=== PATIENT | female | born 1975 | race African-American/Black ===

== ENCOUNTER 2019-04-16 14:06 | Outpatient (CLI) | payer BC, SELFPAY ==
[2019-04-16 15:26] LABS: Hemoglobin 11.2 g/dL (12.0-15.0)
== END 2019-04-16 14:07 | disposition home or self-care (01) ==
LOC: ANHSURGERY 14:09
PROVIDERS: Anesthesiology; PCP Internal Medicine Infectious Disease; Visit Provider Obstetrics & Gynecology
DX: D64.9 Anemia, unspecified (principal)
CPT/HCPCS: 36415; 85014; 85018

== ENCOUNTER 2019-04-25 00:22 | Day surgery (SDC) | payer BC, SELFPAY ==
[2019-04-15 12:30] VITALS: BMI 35.9
--- NOTE | 2019-04-25 10:14 | PM.HPGS ---
History of Present Illness History of Present Illness Consent: Risks, benefits, and alternatives have been discussed and questions answered. Patient agrees to proceed with procedure. Chief complaint: Fibroids Narrative: Paul Lugo is a 43 year old female A1 with fibroid uterus and heavy painful cycles. Review of Systems Constitutional: Constitutional: Reports fatigue and Reports lethargy PMFSH Past Medical History Medical History (Updated 04/25/19 @ 10:21 by Morales Gordon MD) Fibroids Menorrhagia with regular cycle Migraine Surgical History Surgical History H/O: Family History Family History Other Diabetes mellitus Hypertension Social History Social History Substance use: never Meds Home Medications and Allergies Home Medications Medication Instructions Recorded Confirmed Type ferrous sulfate [iron] 325 mg PO BID 04/15/19 04/15/19 History ibuprofen 800 mg PO Q8H PRN 04/15/19 04/15/19 History Allergies Allergy/AdvReac Type Severity Reaction Status Date / Time Sulfa (Sulfonamide Allergy Intermediate Rash Verified 04/25/19 10:08 Antibiotics) Exam Const: General: no acute distress GI: GI Palp: Yes Soft to palpation : External Female Exam: normal external appearance Speculum Exam - Vagina: vaginal bleeding Assessment and Plan Assessment and plan (1) Fibroids: Code(s): D21.9 - Benign neoplasm of connective and other soft tissue, unspecified Status: Acute Assessment and Plan: schedule for a hysteroscopy with dilation and curettage with possible myosure. (2) Menorrhagia with regular cycle: Code(s): N92.0 - Excessive and frequent menstruation with regular cycle Status: Acute
[2019-04-25 10:30] VITALS: BP 133/84; PULSE 81; RESP 18; TEMP 36.4; O2SAT 100
[2019-04-25] MEDS: LACTATED RINGERS 1,000 ML 30 ML IV CONT (10:35)
--- NOTE | 2019-04-25 11:16 | WPDANESEPPF ---
Anes - Initial Pre Proc Eval Procedure: Operation Date: 04/25/19 12:00 Proposed Procedures p Hysteroscopy, Dilation and Curettage - Morales Gordon MD Date/Time: 04/25/19 11:16 Surgeon: Morales Gordon MD Pre Op Diagnosis: Fibroids Patient Data Age: 43 Gender: F Height: 5 ft 6 in Weight: 102.1 kg Last Vital Signs Temp 36.4 C L 04/25/19 10:30 Pulse 81 04/25/19 10:30 Resp 18 04/25/19 10:30 BP 133/84 04/25/19 10:30 Pulse Ox 100 04/25/19 10:30 Allergies Allergy/AdvReac Type Severity Reaction Status Date / Time Sulfa (Sulfonamide Allergy Intermediate Rash Verified 04/25/19 10:08 Antibiotics) Home Medications Medication Instructions Recorded Confirmed Type ferrous sulfate [iron] 325 mg PO BID 04/15/19 04/15/19 History ibuprofen 800 mg PO Q8H PRN 04/15/19 04/15/19 History Patient hx anesthesia problems: none Family hx anesthesia problems: none PMFSH Past Medical History Medical History Fibroids Menorrhagia with regular cycle Migraine Surgical History Surgical History H/O: Family History Family History Other Diabetes mellitus Hypertension Social History Social History Substance use: never Anes - Eval Final PreProcedure Day of Procedure 04/25/19 11:16 Patient weight: obese Heart: regular rate and rhythm Lungs: clear to auscultation Airway: Mallampati scale class II Neurological: alert and oriented Last oral intake: >/= 8 hours ASA classification: II Emergent: no Anesthetic plan: proceed Anesthesia type and monitoring: general GIVS and standard monitoring Informed Consent: The patient's anesthetic plan and its attendant risks and benefits were discussed with the patient/family/POA. Questions were solicited and answers provided to the satisfaction of the patient/family/POA.
--- NOTE | 2019-04-25 12:27 | PM.OP ---
Procedure Note - Brief Procedure Note - Brief Date of procedure: 04/25/19 Pre-op diagnosis: Fibroids Post-op diagnosis: same Procedure performed: hysteroscopy dilation and curettage Anesthesia: MAC and local Surgeon: Morales Gordon MD Estimated blood loss (mL): 10 Drains: No Packing: No Pathology: yes Findings: large uterine cavity.
[2019-04-25 12:33] VITALS: BP 117/72; PULSE 82; RESP 18
[2019-04-25 12:58] VITALS: BP 123/87; PULSE 69; O2SAT 98
[2019-04-25 13:20] VITALS: BP 123/87; PULSE 69; O2SAT 98
--- NOTE | 2019-04-25 13:54 | OP_ITS ---
DATE OF PROCEDURE: 04/25/2019 PREOPERATIVE DIAGNOSIS: Fibroids. POSTOPERATIVE DIAGNOSIS: Fibroids. PROCEDURE: Hysteroscopy with dilation and curettage. ANESTHESIA: MAC with paracervical block. FINDINGS: Normal large uterine cavity. DESCRIPTION OF PROCEDURE: The patient was taken to the operating room with IV running, prepared and draped in a normal sterile fashion and placed in a dorsal lithotomy position. A bivalve speculum was placed in vagina. Anterior lip of the cervix was grasped with a single-tooth tenaculum. Cervix was injected with 5 cc of lidocaine in 2 and 10 o'clock position on the cervix. The uterus was sounded to 10 cm. The cervix was then serially dilated with Hegar dilators. Hysteroscope was introduced. Normal uterine cavity. No visible fibroids or polyps noted. Hysteroscope removed. Sharp curettage performed in all 4 quadrants with scant bloody tissue. Instruments were removed. Hemostasis was assured. The patient was taken to recovery room in stable condition. Adrienne I MT: Carter
== END 2019-04-25 13:49 | disposition home or self-care (01) ==
PROVIDERS: PCP Internal Medicine Infectious Disease; Visit Provider Obstetrics & Gynecology
PROC: 0U5B8ZZ Destruction of Endometrium, Via Natural or Artificial Opening Endoscopic (ICD-10-PCS; CPT 58563; principal; 2019-04-25 12:00)
DX: D25.0 Submucous leiomyoma of uterus (principal); N92.0 Excessive and frequent menstruation with regular cycle; E66.9 Obesity, unspecified; Z68.36 Body mass index [BMI] 36.0-36.9, adult
CPT/HCPCS: 58558; 88305; A9270; J2250; J2405; J2704; J3010; J7030; J7120

== ENCOUNTER 2019-06-13 18:19 | Emergency (ER) | payer BC, SELFPAY ==
[2019-06-13 18:32] VITALS: BP 145/93; PULSE 107; RESP 16; TEMP 37.8; O2SAT 100
--- NOTE | 2019-06-13 18:49 | ED.SKABFB ---
HPI - Skin/Abscess/Foreign Bdy General Chief complaint: Skin/Abscess/Foreign Body Stated complaint: Left leg wound Time Seen by Provider: 06/13/19 18:49 Source: patient and RN notes reviewed History of Present Illness HPI narrative: Patient is a 43-year-old female that presents the urgent care with complaints of left lower leg swelling and redness. Patient states she noticed it a couple days ago and feels that it may have been a bug bite . Patient states that the redness is gotten larger. Patient also reports of a mild nonproductive cough since Sunday. Patient states she has started taking her Singulair that she was prescribed in the past for seasonal allergies. 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 Patient denies of any known fever however is aware that she is currently running a low-grade fever. Patient denies of any acute shortness of breath or chest pain. Patient denies any history of hypertension. Denies any history of DVT. Patient states she has had swelling in her legs in the past and was ruled out for a DVT before. No other acute complaints. No acute distress noted. Patient read the plan of care. Related Data Home Medications Medication Instructions Recorded Confirmed amitriptyline 25 mg PO DAILY 06/13/19 06/13/19 ferrous sulfate 324 mg PO DAILY 06/13/19 06/13/19 fexofenadine [Melody Allergy] 180 mg PO DAILY 06/13/19 06/13/19 gabapentin [Neurontin] 300 mg PO TID 06/13/19 06/13/19 montelukast [Singulair] 10 mg PO HS 06/13/19 06/13/19 Allergies Allergy/AdvReac Type Severity Reaction Status Date / Time Sulfa (Sulfonamide Allergy Intermediate Rash Verified 06/13/19 18:38 Antibiotics) Review of Systems Review of Systems: Narrative: CONSTITUTIONAL: Denies fever, chills, or sweats. EYES: Denies visual changes, redness, or discharge. ENT: Denies rhinorrhea, congestion, sore throat, or otalgia. CARDIOVASCULAR: Denies chest pain, palpitations, or edema. RESPIRATORY: Denies cough or dyspnea. GASTROINTESTINAL: Denies abdominal pain, nausea, vomiting, or diarrhea. GENITOURINARY: Denies dysuria or hematuria. SKIN: Reports of redness to the left lower leg MUSCULOSKELETAL: Reports of swelling to the left lower leg NEUROLOGIC: Denies headache, numbness, or weakness. All other systems reviewed are negative, except as documented in HPI. [facility] Social History Social History Substance use: never Gender identity (if verbalized by the patient): Female Comments At the time of my signature, I reviewed and agree with the nursing past medical, surgical, social, and family history. There is no relevant family history pertinent to the patient complaint. Exam Narrative: Exam Narrative: GENERAL: This is a well-nourished, well-developed patient, in no apparent distress. HEAD: normocephalic, atraumatic. EYES: PERRL. Sclera clear/white. Vision is grossly intact. EARS: External ears normal NOSE: External nose normal with no obvious nasal discharge THROAT: Mucous membranes moist, posterior pharynx clear. NECK: Neck supple CARDIOVASCULAR: Regular rate and rhythm without murmurs, gallops, or rubs. RESPIRATORY: Clear to auscultation. Breath sounds equal bilaterally. No wheezes, rales, or rhonchi. SKIN: 8 cm diameter area of erythema and mild edema to the anterior medial aspect of the left lower leg, 3 cm diameter area of erythema to lateral aspect of left lower leg NEURO: awake, alert, and oriented to person, place and time. There were no obvious focal neurologic abnormalities. EXTREMITIES: Nonpitting mild edema to the left lower extremity with positive strong pedal pulse and capillary refill less than 2 seconds. Course Vital Signs Vital signs: Vital Signs Temperature 100.1 F H 06/13/19 18:32 Pulse Rate 107 H 06/13/19
== END 2019-06-13 19:10 | disposition home or self-care (01) ==
PROVIDERS: Emergency Provider Nurse Practitioner Family; PCP Internal Medicine Infectious Disease
DX: L03.116 Cellulitis of left lower limb (principal)
CPT/HCPCS: 99213; G0463

== ENCOUNTER 2019-08-05 09:49 | Outpatient (CLI) | payer BC, SELFPAY ==
--- NOTE | 2019-08-05 11:00 | NEURO_ITS ---
Patient Number: [id number] Impression: # Complains of numbness of lower extremities. # Normal motor and sensory nerve conduction study. # Normal needle/EMG exam. # Clinical correlation recommended. Higher involvement may need to be ruled out. Nerve Conduction Studies Anti Sensory Summary Table Stim Site NR Peak (ms) P-T Amp (?V) Site1 Site2 Delta-P (ms) Dist (cm) Antonio (m/s) Left Sup Fibular Anti Sensory (Ant Lat Mall) 14 cm 3.5 13.5 14 cm Ant Lat Mall 3.5 16.0 46 Right Sup Fibular Anti Sensory (Ant Lat Mall) 14 cm 3.8 2.4 14 cm Ant Lat Mall 3.8 16.0 42 Left Sural Anti Sensory (Lat Mall) Calf 3.7 11.2 Calf Lat Mall 3.7 16.0 43 Right Sural Anti Sensory (Lat Mall) Calf 3.3 6.4 Calf Lat Mall 3.3 16.0 48 Motor Summary Table Stim Site NR Onset (ms) O-P Amp (mV) Site1 Site2 Delta-0 (ms) Dist (cm) Antonio (m/s) Left Peroneal Motor (Vastus Med) Ankle 4.1 2.8 Popit Ankle 7.6 39.0 51 Popit 11.7 1.9 Right Peroneal Motor (Vastus Med) Ankle 3.9 0.8 Popit Ankle 7.0 41.0 59 Popit 10.9 0.6 Left Tibial Motor (Abd Mustafa Brev) Ankle 4.7 5.4 Knee Ankle 7.5 42.0 56 Knee 12.2 4.5 Right Tibial Motor (Abd Mustafa Brev) Ankle 4.5 6.4 Knee Ankle 7.6 43.0 57 Knee 12.1 4.0 F Wave Studies NR F-Lat (ms) L-R F-Lat (ms) Left Peroneal (Mrkrs) (EDB) 48.28 0.26 Right Peroneal (Mrkrs) (EDB) 48.54 0.26 Left Tibial (Mrkrs) (Abd Hallucis) 49.66 0.18 Right Tibial (Mrkrs) (Abd Hallucis) 49.47 0.18 EMG Side Muscle Nerve Root Ins Act Fibs Amp Dur Recrt Comment Right AntTibialis Dp Br Fibular L4-5 Nml Nml Nml Nml Nml Right Gastroc Tibial S1-2 Nml Nml Nml Nml Nml Right Fibularis Long Sup Br Fibular L5-S1 Nml Nml Nml Nml Nml Right Flex Dig Long Tibial L5-S2 Nml Nml Nml Nml Nml Right Ext Dig Brev Dp Br Fibular L5, S1 Nml Nml Nml Nml Nml Left AntTibialis Dp Br Fibular L4-5 Nml Nml Nml Nml Nml Left Gastroc Tibial S1-2 Nml Nml Nml Nml Nml Left Fibularis Long Sup Br Fibular L5-S1 Nml Nml Nml Nml Nml Left Flex Dig Long Tibial L5-S2 Nml Nml Nml Nml Nml Left Ext Dig Brev Dp Br Fibular L5, S1 Nml Nml Nml Nml Nml MTDD
== END 2019-08-05 09:50 | disposition home or self-care (01) ==
LOC: ANHNEURO 09:51
PROVIDERS: PCP Internal Medicine Infectious Disease; Visit Provider Internal Medicine Infectious Disease
DX: G60.9 Hereditary and idiopathic neuropathy, unspecified (principal)
CPT/HCPCS: 95886; 95910

== ENCOUNTER 2019-10-21 17:42 | Emergency (ER) | payer BC, SELFPAY ==
[2019-10-21 17:54] VITALS: BP 142/83; PULSE 91; RESP 16; TEMP 37.3; O2SAT 100
--- NOTE | 2019-10-21 18:01 | ED.GENADULT ---
HPI - General Adult General Chief complaint: Wound/Laceration Stated complaint: Rash on leg Time Seen by Provider: 10/21/19 18:09 Source: patient Mode of arrival: ambulatory Limitations: no limitations History of Present Illness HPI narrative: 44-year-old female patient presents to the the medical center with complaints of a rash to the left leg for the past 3 to 4 days. Patient states that she thinks she got bit by something. Patient states that it is itchy and states that the redness around the site was much worse a couple of days ago and does appear to be improving but continues to have itching to the area. Denies any swelling to the leg. Denies any fevers, nausea, vomiting or diarrhea. Denies any body aches or chills. Denies any chest pain or shortness of breath. Patient states she did put a little bit of Neosporin on it but denies doing anything else for the area. Related Data Home Medications Medication Instructions Recorded Confirmed amitriptyline 25 mg PO DAILY 06/13/19 10/21/19 ferrous sulfate 324 mg PO DAILY 06/13/19 10/21/19 fexofenadine [Melody Allergy] 180 mg PO DAILY 06/13/19 10/21/19 gabapentin [Neurontin] 300 mg PO TID 06/13/19 10/21/19 montelukast [Singulair] 10 mg PO HS 06/13/19 10/21/19 Allergies Allergy/AdvReac Type Severity Reaction Status Date / Time Sulfa (Sulfonamide Allergy Intermediate Rash Verified 10/21/19 17:50 Antibiotics) Review of Systems Review of Systems: Narrative: CONSTITUTIONAL: Denies fever, chills, or sweats. EYES: Denies visual changes, redness, or discharge. ENT: Denies rhinorrhea, congestion, sore throat, or otalgia. CARDIOVASCULAR: Denies chest pain, palpitations, or edema. RESPIRATORY: Denies cough or dyspnea. GASTROINTESTINAL: Denies abdominal pain, nausea, vomiting, or diarrhea. GENITOURINARY: Denies dysuria or hematuria. SKIN: Denies rash or itching. Positive bite with itchiness to the left leg x3 days MUSCULOSKELETAL: Denies back pain, joint pain, or myalgia. NEUROLOGIC: Denies headache, numbness, or weakness. PSYCHIATRIC: Denies anxiety or depression. [facility] Past Medical History Medical History Fibroids Menorrhagia with regular cycle Migraine Surgical History Surgical History H/O: Family History Family History Other Diabetes mellitus Hypertension Social History Social History Substance use: never Gender identity (if verbalized by the patient): Female Comments At the time of my signature I agree with nursing past medical history, surgical, social, and family history. There is no relevant family history pertinent to the presenting complaint. Exam Narrative: Exam Narrative: GENERAL: Well-appearing, well-nourished, and in no acute distress. HEAD: Normocephalic, atraumatic. EYES: PERRLA and EOMI. ENT: Nares clear, no rhinorrhea or epistaxis. Mucous membranes moist. NECK: Supple. No lymphadenopathy CHEST: Clear to auscultation. No respiratory distress. HEART: Regular rate and rhythm. No murmur heard. Normal peripheral pulses. ABDOMEN: Soft, nontender, nondistended, normal active bowel sounds. EXTREMITIES: Normal range of motion. No edema. SKIN: Warm, dry, patient does have what appears to be a punctate gonzalo to the center of a very light reddened/hyperpigmented area to the anterior left leg on the medial aspect. The area measures approximately 3.5 x 4 and is irregular. There is no open wounds or discharge to the area. There is very slight tenderness on palpation to the area of the patient rates about 3 out of 10. The area was compared to the picture that was on her phone of the redness that she had 2 days ago and is much improved compared to the picture. NEURO: No focal deficits. Alert and oriented x3. Course Vital Signs Vi
== END 2019-10-21 18:10 | disposition home or self-care (01) ==
PROVIDERS: Emergency Provider Nurse Practitioner Family; PCP Internal Medicine Infectious Disease
DX: S80.862A Insect bite (nonvenomous), left lower leg, initial encounter (principal); W57.XXXA Bitten or stung by nonvenomous insect and other nonvenomous arthropods, initial encounter
CPT/HCPCS: 99213; G0463

== ENCOUNTER 2019-12-21 13:01 | Emergency (ER) | payer BC, SELFPAY ==
[2019-12-21 13:33] VITALS: BP 157/93; PULSE 83; RESP 16; TEMP 36.3; O2SAT 100
--- NOTE | 2019-12-21 13:54 | ED.GENADULT ---
HPI - General Adult General Chief complaint: Skin/Abscess/Foreign Body Stated complaint: Rash Time Seen by Provider: 12/21/19 13:54 Source: patient Mode of arrival: ambulatory Limitations: no limitations History of Present Illness HPI narrative: 44-year-old female patient presents to the [facility] with complaints of a rash to the abdomen and chest for the past 3 to 4 days. Patient states it is very itchy. Patient states she was outside recently at her sister's house. Denies any pets. Denies any new lotions soaps or detergent. Denies any chest pain, shortness of breath, fevers, swelling to lips tongue or face. Patient states she has been using some antibiotic ointment to the rash as well as taking some Benadryl to help with the itching. Related Data Home Medications Medication Instructions Recorded Confirmed amitriptyline 25 mg PO DAILY 06/13/19 10/21/19 ferrous sulfate 324 mg PO DAILY 06/13/19 10/21/19 gabapentin [Neurontin] 300 mg PO TID 06/13/19 10/21/19 Allergies Allergy/AdvReac Type Severity Reaction Status Date / Time Sulfa (Sulfonamide Allergy Intermediate Rash Verified 10/21/19 17:50 Antibiotics) Review of Systems Review of Systems: Narrative: CONSTITUTIONAL: Denies fever, chills, or sweats. EYES: Denies visual changes, redness, or discharge. ENT: Denies rhinorrhea, congestion, sore throat, or otalgia. CARDIOVASCULAR: Denies chest pain, palpitations, or edema. RESPIRATORY: Denies cough or dyspnea. GASTROINTESTINAL: Denies abdominal pain, nausea, vomiting, or diarrhea. GENITOURINARY: Denies dysuria or hematuria. SKIN: Positive rash with itching to abdomen and chest x3 to 4 days MUSCULOSKELETAL: Denies back pain, joint pain, or myalgia. NEUROLOGIC: Denies headache, numbness, or weakness. PSYCHIATRIC: Denies anxiety or depression. [facility] Past Medical History Medical History (Updated 12/21/19 @ 14:01 by SHAYNE Sanchez) Fibroids Menorrhagia with regular cycle Migraine Surgical History Surgical History H/O: Family History Family History Other Diabetes mellitus Hypertension Social History Social History Substance use: never Gender identity (if verbalized by the patient): Female Comments At the time of my signature I agree with nursing past medical history, surgical, social, and family history. There is no relevant family history pertinent to the presenting complaint. Exam Narrative: Exam Narrative: GENERAL: Well-appearing, well-nourished, and in no acute distress. HEAD: Normocephalic, atraumatic. EYES: PERRLA and EOMI. ENT: Nares clear, no rhinorrhea or epistaxis. Mucous membranes moist. NECK: Supple. No lymphadenopathy CHEST: Clear to auscultation. No respiratory distress. HEART: Regular rate and rhythm. No murmur heard. Normal peripheral pulses. ABDOMEN: Soft, nontender, nondistended, normal active bowel sounds. EXTREMITIES: Normal range of motion. No edema. SKIN: Warm, dry, patient has small erythemic macules with some scabbing noted to the middle in various areas around the abdomen. Patient states that it does itch. Also various areas that are similar to the chest. Nothing noted to the back, arms or lower extremities. No open wounds or discharge noted NEURO: No focal deficits. Alert and oriented x3. Course Vital Signs Vital signs: Vital Signs Temperature 36.3 C L 12/21/19 13:33 Pulse Rate 83 12/21/19 13:33 Respiratory Rate 16 12/21/19 13:33 Blood Pressure 157/93 H 12/21/19 13:33 Pulse Oximetry 100 12/21/19 13:33 Temperature 36.3 C L 12/21/19 13:33 Pulse Rate 83 12/21/19 13:33 Respiratory Rate 16 12/21/19 13:33 Blood Pressure 157/93 H 12/21/19 13:33 Pulse Oximetry 100 12/21/19 13:33 Vital signs reviewed. The patient has been informed that they may have pre-
== END 2019-12-21 14:04 | disposition home or self-care (01) ==
PROVIDERS: Emergency Provider Nurse Practitioner Family; PCP Internal Medicine Infectious Disease
DX: R21 Rash and other nonspecific skin eruption (principal)
CPT/HCPCS: 99213; G0463

== ENCOUNTER 2020-02-19 09:22 | Emergency (ER) | payer BC, SELFPAY ==
--- NOTE | ~2020-02-19 | XR_ITS ---
XR chest 2V 02/19/2020 09:49 Indication: Nonproductive cough Procedure: 2 view chest Comparison: 09/29/2018 Findings: Left perihilar atelectasis. Right lung is clear. No pleural effusion or pneumothorax. No ac [place] osseous abnormality. Impression: 1: Left perihilar atelectasis. Reviewed, dictated and finalized at location A. COVER OPERATOR Impression: 1: Left perihilar atelectasis.
--- NOTE | 2020-02-19 09:30 | ED.GENADULT ---
HPI - General Adult General Chief complaint: Upper Respiratory Infection Stated complaint: Cough Time Seen by Provider: 02/19/20 09:30 Source: patient Mode of arrival: ambulatory Limitations: no limitations History of Present Illness HPI narrative: 44-year-old female patient presents to the [facility] with complaints of a cough for the past 5 days. Patient states she did get Covid tested but only after having symptoms for 1 day. Patient states she has continued to have a dry cough and a little bit of shortness of breath. Patient states she has a little bit of midsternal chest pain that only occurs when she is coughing. Patient denies any fevers that she is aware of. Denies any ear pain, runny nose or stuffy nose. Patient states she does have a little bit of a sore throat in the morning but it does get better as the day progresses. Denies any abdominal pain, nausea, vomiting or diarrhea. Patient states she has tried some [id number] medication to help with the cough. Related Data Home Medications Medication Instructions Recorded Confirmed amitriptyline 25 mg PO DAILY 06/13/19 02/19/20 ferrous sulfate 324 mg PO DAILY 06/13/19 02/19/20 gabapentin [Neurontin] 300 mg PO TID 06/13/19 02/19/20 Allergies Allergy/AdvReac Type Severity Reaction Status Date / Time Sulfa (Sulfonamide Allergy Intermediate Rash Verified 02/19/20 09:36 Antibiotics) Review of Systems Review of Systems: Narrative: CONSTITUTIONAL: Denies fever, chills, or sweats. EYES: Denies visual changes, redness, or discharge. ENT: Denies rhinorrhea, congestion, positive intermittent sore throat, denies otalgia. CARDIOVASCULAR: Denies chest pain, palpitations, or edema. RESPIRATORY: Positive cough with intermittent dyspnea. GASTROINTESTINAL: Denies abdominal pain, nausea, vomiting, or diarrhea. GENITOURINARY: Denies dysuria or hematuria. SKIN: Denies rash or itching. MUSCULOSKELETAL: Denies back pain, joint pain, or myalgia. NEUROLOGIC: Denies headache, numbness, or weakness. PSYCHIATRIC: Denies anxiety or depression. [facility] Past Medical History Medical History (Updated 02/19/20 @ 09:59 by SHAYNE Sanchez) Anemia Fibroids Menorrhagia with regular cycle Migraine Surgical History Surgical History H/O: Family History Family History Other Diabetes mellitus Hypertension Social History Social History Substance use: never Gender identity (if verbalized by the patient): Female Comments At the time of my signature I agree with nursing past medical history, surgical, social, and family history. There is no relevant family history pertinent to the presenting complaint. Exam Narrative: Exam Narrative: GENERAL: Well-appearing, well-nourished, and in no acute distress. HEAD: Normocephalic, atraumatic. EYES: PERRLA and EOMI. ENT: Nares with erythema and edema noted bilaterally, patent, no rhinorrhea or epistaxis. Mucous membranes moist. Posterior pharynx with no erythema, tonsil management, exudates or lesions present. Bilateral TMs are clear, there is ear wax noted in to bilateral canals NECK: Supple. No lymphadenopathy CHEST: Clear to auscultation. No respiratory distress. Patient will talk in clear complete sentences. HEART: Regular rate and rhythm. No murmur heard. Normal peripheral pulses. ABDOMEN: Soft, nontender, nondistended, normal active bowel sounds. EXTREMITIES: Normal range of motion. No edema. SKIN: Warm, dry, no rash. NEURO: No focal deficits. Alert and oriented x3. Course Reevaluation(s) Reevaluation #1: Reevaluated patient after her x-ray had resulted. X-ray does show a little bit of atelectasis to the left lung. Discussed with her that we will discharge her home with an inhaler, oral steroid and Tessalon Perles to help with the coughing and t
[2020-02-19 09:31] VITALS: BP 140/85; PULSE 101; RESP 16; TEMP 37.3; O2SAT 99
== END 2020-02-19 10:10 | disposition home or self-care (01) ==
PROVIDERS: Emergency Provider Nurse Practitioner Family; PCP Internal Medicine Infectious Disease
DX: R05 Cough (principal); J98.11 Atelectasis; Z20.828 Contact with and (suspected) exposure to other viral communicable diseases; D64.9 Anemia, unspecified
CPT/HCPCS: 71046; 87635; 99213; C9803; G0463; U0003

== ENCOUNTER 2020-02-19 11:18 | Outpatient (NON) | payer BC, SELFPAY ==
[2020-02-20 20:00] LABS: SARS-CoV-2 RNA PCR Negative
== END 2020-02-19 11:19 ==
PROVIDERS: PCP Internal Medicine Infectious Disease; Visit Provider Nurse Practitioner Family
DX: Z20.828 Contact with and (suspected) exposure to other viral communicable diseases (principal); R05 Cough; J98.11 Atelectasis
CPT/HCPCS: 87635; C9803; U0003

== ENCOUNTER 2021-12-10 09:36 | Emergency (ER) | payer OTHER, BC, SELFPAY ==
[2021-12-10 09:47] VITALS: BP 129/83; PULSE 91; RESP 16; TEMP 37.2; O2SAT 99
--- NOTE | 2021-12-10 10:19 | ED.EAR ---
HPI - Ear Problem General Chief complaint: Ear Stated complaint: ear infection Time Seen by Provider: 12/10/21 10:19 Source: patient Mode of arrival: ambulatory Limitations: no limitations History of Present Illness HPI Narrative: 46 y/o female presented for c/o both ears clogged for 2 weeks. She has used ear wax remover without relief. Endorses Left ear pain worse than right, rates 7/10. States she was treated for ear infection 2 months ago. Denies headache, tinnitus, dizziness, nausea, vomiting, fever or chills. MD Complaint: ear pain Related Data Home Medications Medication Instructions Recorded Confirmed amitriptyline 25 mg tablet 25 mg PO DAILY 06/13/19 02/19/20 ferrous sulfate 324 mg (65 mg 324 mg PO DAILY 06/13/19 02/19/20 iron) tablet,delayed release Stool Softner 12/10/21 furosemide 20 mg tablet mg 12/10/21 Allergies Allergy/AdvReac Type Severity Reaction Status Date / Time Sulfa (Sulfonamide Allergy Intermediate Rash Verified 12/10/21 10:09 Antibiotics) Review of Systems Review of Systems: CONSTITUTIONAL: Denies malaise, chills, or fever. EYES: Denies visual changes, redness, or discharge. ENT: Denies rhinorrhea, congestion, sinus pain, and sore throat. Reports ear pain CARDIOVASCULAR: Denies chest pain, palpitations, or edema. RESPIRATORY: Denies cough or dyspnea. GASTROINTESTINAL: Denies abdominal pain, nausea, vomiting, diarrhea SKIN: Denies rash or itching. MUSCULOSKELETAL: Denies myalgia. NEUROLOGIC: Denies headache. All systems reviewed & are unremarkable except as noted in HPI and below PMFSH Past Medical History Medical History Anemia Fibroids Menorrhagia with regular cycle Migraine Surgical History Surgical History H/O: Family History Family History Other Diabetes mellitus Hypertension Social History Social History Substance use: never Gender identity (if verbalized by the patient): Female Comments At time of signature, agree with nursing past medical, surgical, social and family history. There is no relevant family history pertinent to the presenting complaint Exam Narrative: GENERAL: Well-appearing EYES: PERRLA, conjunctivae clear ENT: Nares clear. Mucous membranes moist. Bilateral canals with excess cerumen, no impaction; TMs pearly arriaga with dull light reflex bilaterally; no tragal tenderness. Oropharynx not erythematous without lesions. NECK: Supple. No lymphadenopathy CHEST: Clear to auscultation, breath sounds equal. HEART: Regular rate and rhythm. No murmur heard. SKIN: Warm, dry, no rash. NEURO: Alert and oriented x3. Course Course Emergency Course: Patient is aware of diagnosis, understands and agrees to treatment plan. Anticipatory guidance given. Patient agrees to follow-up as directed and is aware of reasons to seek care at the emergency department. Portions of this record may have been created with voice recognition software Level of Care: Express Care Visit Vital Signs Vital signs: Vital Signs Temperature 99.0 F 12/10/21 09:47 Pulse Rate 91 12/10/21 09:47 Respiratory Rate 16 12/10/21 09:47 Blood Pressure 129/83 12/10/21 09:47 Pulse Oximetry 99 12/10/21 09:47 Oxygen Delivery Room Air 12/10/21 09:47 Temperature 99.0 F 12/10/21 09:47 Pulse Rate 91 12/10/21 09:47 Respiratory Rate 16 12/10/21 09:47 Blood Pressure 129/83 12/10/21 09:47 Pulse Oximetry 99 12/10/21 09:47 Oxygen Delivery Room Air 12/10/21 09:47 Reviewed Procedures Ear Wax Removal Both Ears: TM Examination: TM(s) intact, normal appearance Ear Canal Exam: atraumatic Patient Tolerated Procedure: well and no complications Technique: ear canal curetted Additio
== END 2021-12-10 10:50 | disposition home or self-care (01) ==
PROVIDERS: Emergency Provider Nurse Practitioner Family; PCP Family Medicine
DX: H61.23 Impacted cerumen, bilateral (principal)
CPT/HCPCS: 69210; 99212; G0463

== ENCOUNTER 2022-06-21 13:50 | Emergency (ER) | payer OTHER, SELFPAY ==
[2022-06-21 13:59] VITALS: BP 144/96; PULSE 75; RESP 12; TEMP 36.6; O2SAT 98
--- NOTE | 2022-06-21 14:11 | ED.GENADULT ---
HPI - General Adult General Chief complaint: Skin/Abscess/Foreign Body Stated complaint: lump back of left ear Time Seen by Provider: 06/21/22 14:10 Source: patient Mode of arrival: ambulatory Limitations: no limitations History of Present Illness HPI narrative: 46 y/o female presented for c/o 'lump' behind left ear. First noticed yesterday. States she thought she was stung by an insect. She applied neosporin to the site, and states it was smaller this morning. 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 Denies inner ear pain, drainage, tinnitus, outer ear swelling or redness. Related Data Home Medications Medication Instructions Recorded Confirmed Iron (ferrous sulfate) 325 mg PO DAILY 06/21/22 06/21/22 docusate sodium 100 mg capsule 100 mg PO DAILY 06/21/22 06/21/22 (Colace) furosemide 20 mg tablet 20 mg PO DIRECTED PRN Edema 06/21/22 06/21/22 Allergies Allergy/AdvReac Type Severity Reaction Status Date / Time Sulfa (Sulfonamide Allergy Intermediate Rash Verified 06/21/22 13:55 Antibiotics) Review of Systems Review of Systems: CONSTITUTIONAL: Denies body aches, fever, chills, or sweats. EYES: Denies visual changes, redness, or discharge. ENT: Denies rhinorrhea, congestion CARDIOVASCULAR: Denies chest pain, palpitations, or edema. RESPIRATORY: Denies cough or dyspnea. GASTROINTESTINAL: Denies abdominal pain, nausea, vomiting, or diarrhea. SKIN: per HPI MUSCULOSKELETAL: Denies back pain, joint pain, or myalgia. NEUROLOGIC: Denies headache, numbness, tingling, or weakness. PMFSH Past Medical History Medical History Anemia Fibroids Menorrhagia with regular cycle Migraine Surgical History Surgical History H/O: Family History Family History Other Diabetes mellitus Hypertension Social History Social History Substance use: never Gender identity (if verbalized by the patient): Female Comments At time of signature, I have reviewed and agree with nursing past medical, surgical, social and family history unless otherwise noted. Please see nursing chart for further information. There is no relevant family history pertinent to the presenting complaint Exam Narrative: GENERAL: Well-appearing HEAD: Normocephalic, atraumatic. EYES: conjunctivae clear, and EOMI. ENT: Mucous membranes moist. Oropharynx without edema, erythema or lesions. TMs with normal light reflex bilaterally. Outer ear normal bilaterally. NECK: Supple. No lymphadenopathy CHEST: Clear to auscultation. HEART: Regular rate and rhythm. SKIN: Warm, dry. Left posterior ear superior to mastoid with approx 3mm diameter mildly erythematous and slightly raised papular lesion. No fluctuance or active drainage. Mildly tender with palpation. NEURO: Alert and oriented x3. Course Course Emergency Course: Patient is aware of diagnosis, understands and agrees to treatment plan. Anticipatory guidance given. Patient agrees to follow-up as directed and is aware of reasons to seek care at the emergency department. Portions of this record may have been created with voice recognition software Level of Care: Express Care Visit Vital Signs Vital signs: Vital Signs Temperature 98 F 06/21/22 13:59 Pulse Rate 75 06/21/22 13:59 Respiratory Rate 12 06/21/22 13:59 Blood Pressure 144/96 H 06/21/22 13:59 Pulse Oximetry 98 06/21/22 13:59 Oxygen Delivery Room Air 06/21/22 13:59 Temperature 98 F 06/21/22 13:59 Pulse Rate 75 06/21/22 13:59 Respiratory Rate 12 06/21/22 13:59 Blood Pressure 144/96 H 06/21/22 13:59 Pulse Oximetry 98 06/21/22 13:59 Oxygen Delivery Room Air 06/21/22 13:59 Reviewed Medical Decision Making MDM Narrative Medical decision
== END 2022-06-21 14:20 | disposition home or self-care (01) ==
PROVIDERS: Emergency Provider Nurse Practitioner Family
DX: H93.8X2 Other specified disorders of left ear (principal); D64.9 Anemia, unspecified
CPT/HCPCS: 99213; G0463

== ENCOUNTER 2022-09-27 16:09 | Emergency (ER) | payer OTHER, SELFPAY ==
[2022-09-27 16:22] VITALS: BP 138/89; PULSE 79; RESP 14; TEMP 36.3; O2SAT 100
[2022-09-27 16:26] VITALS: BP 138/89; PULSE 79; RESP 14; TEMP 36.3; O2SAT 100
--- NOTE | 2022-09-27 17:04 | ED.EAR ---
HPI - Ear Problem General Chief complaint: Ear Stated complaint: Left Ear Irritation/Neck Pain Time Seen by Provider: 09/27/22 16:50 Source: patient, RN notes reviewed and old records reviewed Mode of arrival: ambulatory Limitations: no limitations History of Present Illness HPI Narrative: 47-year-old female presents to [facility] with complaints of left ear pain and left neck pain with gland swelling to left side neck for one week duration with some right ear itching. Patient has been taking Aleve for her discomfort without resolution of her symptoms. Patient does have some soft cerumen noted to both ear canals with no tragal tenderness noted to ears, patient denies any sinus congestion or drainage,cough or any sore throat symptoms nor any fevers, chills or body aches. MD Complaint: ear pain and other (swelling to left neck gland) Location: left ear Related Data Home Medications Medication Instructions Recorded Confirmed Iron (ferrous sulfate) 325 mg PO DAILY 06/21/22 06/21/22 docusate sodium 100 mg capsule 100 mg PO DAILY 06/21/22 06/21/22 (Colace) Allergies Allergy/AdvReac Type Severity Reaction Status Date / Time Sulfa (Sulfonamide Allergy Intermediate Rash Verified 06/21/22 13:55 Antibiotics) diphenhydramine Allergy Rash Verified 09/27/22 16:25 [From Benadryl] Review of Systems Review of Systems: CONSTITUTIONAL: Denies malaise, chills, sweats, or fever. EYES: Denies visual changes, redness, or discharge. ENT: Reports no rhinorrhea, congestion, sinus pain,left otalgia no sore throat. CARDIOVASCULAR: Denies chest pain, palpitations, or edema. RESPIRATORY: Reports no cough.? Denies dyspnea. GASTROINTESTINAL: Denies abdominal pain, nausea, vomiting, diarrhea SKIN: Denies rash or itching. MUSCULOSKELETAL: Denies myalgia. NEUROLOGIC: Denies headache. All systems reviewed & are unremarkable except as noted in HPI and below PMFSH Past Medical History Medical History (Updated 09/28/22 @ 14:32 by Inez Goddard NP) Anemia Bronchitis Fibroids Menorrhagia with regular cycle Migraine Surgical History Surgical History (Updated 09/28/22 @ 14:29 by Inez Goddard NP) H/O: x2 Family History Family History Other Diabetes mellitus Hypertension Social History Social History (Updated 09/28/22 @ 14:33 by Inez Goddard NP) Smoking status: Never smoker Substance use: never Gender identity (if verbalized by the patient): Female Comments At time of signature, agree with nursing past medical, surgical, social and family history. There is no relevant family history pertinent to the presenting complaint Exam Narrative: GENERAL: Well-appearing, well-nourished, and in no acute distress. HEAD: Normocephalic EYES: PERRLA, conjunctivae clear ENT: Nares clear, turbinates edematous and erythematous, clear discharge. Mucous membranes moist.Left TM red, right TM pearly arriaga with dull light reflex bilaterally; no tragal tenderness, some soft cerumen to bilateral ears. Oropharynx erythematous without lesions. Tonsils not enlarged and without exudate, no drooling, no hoarseness, no trismus, uvula midline. NECK: Supple.left lymphadenopathy CHEST: Clear to auscultation, breath sounds equal. No wheezing, rhonchi, rales, or stridor. No respiratory distress, speaks in full sentences.SAO2 100% on room air HEART: Regular rate and rhythm. No murmur heard. SKIN: Warm, dry, no rash. NEURO: Alert and oriented x3. PSYCH: Normal mood and affect Course Course Emergency Course: Patient is aware of diagnosis, understands and agrees to treatment plan.? Anticipatory guidance given.? Patient agrees to follow-up as directed and is aware of reasons to seek care at the emergency department. Portions of this record may have been created with voice recognition software Level of Care: [facility] [address]
== END 2022-09-27 17:15 | disposition home or self-care (01) ==
PROVIDERS: Emergency Provider Registered Nurse; PCP Family Medicine
DX: H65.02 Acute serous otitis media, left ear (principal); D64.9 Anemia, unspecified
CPT/HCPCS: 99213; G0463

== ENCOUNTER 2022-10-04 22:44 | Emergency (ER) | payer OTHER, BC, SELFPAY ==
[2022-10-04 22:47] VITALS: BP 173/97; PULSE 88; RESP 15; TEMP 36.2; O2SAT 100
--- NOTE | 2022-10-04 23:56 | ED.EYEPROB ---
HPI - Eye Problem General Chief complaint: Eye Problems Stated complaint: bleach in eyes Time Seen by Provider: 10/04/22 23:03 Source: patient Mode of arrival: ambulatory Limitations: no limitations History of Present Illness HPI Narrative: Patient is a 47-year-old female who presents to the ED with report of bilateral eye irritation. Patient reports she was cleaning her trash can with bleach around 4 PM today when the bleach splashed up into her eyes. She thinks more of the bleach got into her right eye than her left. She flushed her eyes out immediately and began feeling somewhat better. She later developed irritation watery drainage again tonight, prompted her presentation. Patient denies any eye pain, vision changes or vision loss, dizziness, lightheadedness, headache. Related Data Home Medications Medication Instructions Recorded Confirmed Iron (ferrous sulfate) 325 mg PO DAILY 06/21/22 06/21/22 docusate sodium 100 mg capsule 100 mg PO DAILY 06/21/22 06/21/22 (Colace) Allergies Allergy/AdvReac Type Severity Reaction Status Date / Time Sulfa (Sulfonamide Allergy Intermediate Rash Verified 06/21/22 13:55 Antibiotics) diphenhydramine Allergy Rash Verified 09/27/22 16:25 [From Benadryl] Review of Systems Review of Systems: GENERAL: Well appearing, well-nourished, non-toxic, in no acute distress. HEAD: Normocephalic, atraumatic. EYES: PERRLA/EOMI, conjunctiva mildly injected bilaterally, R > L. No nystagmus. No pain with EOM. Very slight chemosis noted to R eye. Mild watery drainage bilaterally. No periorbital swelling/erythema. NECK: Supple. No adenopathy, no masses. RESPIRATORY: Airway patent, respirations nonlabored. CARDIOVASCULAR: Regular rate and rhythm without murmurs, rubs, or gallops. Radial pulses 2+ and equal bilaterally. MUSCULOSKELETAL: Moves all extremities. Strength/ROM intact without gross deformities. SKIN: Warm, dry, normal color. No rashes. NEURO: A&O X3. Speech clear. Cranial nerves II-XII grossly intact. Steady gait. No ataxic movements. PSYCHIATRIC: Appropriate mood and affect. Normal interaction. All systems reviewed & are unremarkable except as noted in HPI and below [facility] Past Medical History Medical History (Updated 10/05/22 @ 00:09 by Jaylyn Cisse PA-C) Anemia Bronchitis Fibroids Menorrhagia with regular cycle Migraine Surgical History Surgical History (Updated 09/28/22 @ 14:29 by Inez Goddard NP) H/O: x2 Family History Family History Other Diabetes mellitus Hypertension Social History Social History (Updated 09/28/22 @ 14:33 by Inez Goddard NP) Smoking status: Never smoker Substance use: never Gender identity (if verbalized by the patient): Female Course Vital Signs Vital signs: Vital Signs Temperature 97.1 F L 10/04/22 22:47 Pulse Rate 88 10/04/22 22:47 Respiratory Rate 15 10/04/22 22:47 Blood Pressure 173/97 H 10/04/22 22:47 Pulse Oximetry 100 10/04/22 22:47 Oxygen Delivery Room Air 10/04/22 22:47 Temperature 97.1 F L 10/04/22 22:47 Pulse Rate 88 10/04/22 22:47 Respiratory Rate 15 10/04/22 22:47 Blood Pressure 173/97 H 10/04/22 22:47 Pulse Oximetry 100 10/04/22 22:47 Oxygen Delivery Room Air 10/04/22 22:47 MDM - Eye Problem MDM Narrative Medical decision making narrative: Patient denying vision changes. She does not currently have her glasses with her, unable to perform accurate visual acuity. She does not wear contacts. Fluorescein staining with Ross lamp examination was performed and no evidence for conjunctival or corneal abrasion. Will prescribe patient with Polytrim eyedrops to cover for potential superimposed/secondary bacterial infection. Patient advised to follow-up with oxyacetylene welder for further evaluation if needed. Return precautions discussed. Medical Records Attestation: I
[2022-10-05] MEDS: POLYMYXIN/TRIMETHOPRIM OPHTH 10 ML DROPS 1 DROP EACH EYE (00:21)
== END 2022-10-05 00:50 | disposition home or self-care (01) ==
PROVIDERS: Emergency Provider Physician Assistant; PCP Family Medicine
DX: T54.91XA Toxic effect of unspecified corrosive substance, accidental (unintentional), initial encounter (principal); H10.213 Acute toxic conjunctivitis, bilateral
CPT/HCPCS: 99283; A9270

== ENCOUNTER 2023-09-24 19:03 | Emergency (ER) | payer OTHER, SELFPAY ==
--- NOTE | ~2023-09-24 | XR_ITS ---
EXAM: XR wrist LT min 3V DATE: 09/24/2023 19:33 HISTORY: point tender at LT distal ulna x10 days. No injury. . COMPARISON: None available. FINDINGS: Normal mineralization. No fracture or dislocation. No lytic or blastic lesion. Mild scatte red degenerative changes. No erosion or periosteal change. Soft tissues within normal limits. IMPRESSION: No acute osseous finding in the left wrist. Reviewed, dictated and finalized at location K.
[2023-09-24 19:11] VITALS: BP 143/86; PULSE 78; RESP 16; TEMP 36.6; O2SAT 100
--- NOTE | 2023-09-24 19:27 | ED.EXTPRO ---
HPI - Extremity Problem General Chief complaint: Extremity Problem,Nontraumatic Stated complaint: left wrist painful,swollen Time Seen by Provider: 09/24/23 19:19 Source: patient and RN notes reviewed Mode of arrival: ambulatory Limitations: no limitations History of Present Illness HPI Narrative: Patient presents today complaining of left wrist pain times 10 days. Denies numbness or tingling in the arm or hand. Currently rates her pain 8/10 and has been taking ibuprofen without much relief. Pain increases with some movement. Pain is improved when she rubs the wrist. Denies injury or trauma. Related Data Home Medications Medication Instructions Recorded Confirmed amitriptyline 25 mg tablet 25 mg PO DAILY 09/24/23 09/24/23 furosemide 20 mg tablet 20 mg PO DAILY 09/24/23 09/24/23 Allergies Allergy/AdvReac Type Severity Reaction Status Date / Time diphenhydramine Allergy Intermediate Rash Verified 09/24/23 19:09 [From Benadryl] Sulfa (Sulfonamide Allergy Intermediate Rash Verified 09/24/23 19:09 Antibiotics) Review of Systems Review of Systems: CONSTITUTIONAL: Denies body aches, fever, chills, or sweats. EYES: Denies visual changes, redness, or discharge. ENT: Denies rhinorrhea, congestion, sore throat, or otalgia. CARDIOVASCULAR: Denies chest pain, palpitations, or edema. RESPIRATORY: Denies cough or dyspnea. GASTROINTESTINAL: Denies abdominal pain, nausea, vomiting, or diarrhea. GENITOURINARY: Denies dysuria or hematuria. SKIN: Denies rash, itching, or wounds. MUSCULOSKELETAL: Denies back pain, or myalgia.+ left wrist pain NEUROLOGIC: Denies headache, numbness, tingling, or weakness. PSYCH: Denies depression or anxiety. [facility] Past Medical History Medical History Anemia Bronchitis Fibroids Menorrhagia with regular cycle Migraine Surgical History Surgical History H/O: x2 Family History Family History Other Diabetes mellitus Hypertension Social History Social History Smoking status: Never smoker Substance use: never Gender identity (if verbalized by the patient): Female Comments At time of signature, I have reviewed and agree with nursing past medical, surgical, social and family history unless otherwise noted. Please see nursing chart for further information. There is no relevant family history pertinent to the presenting complaint Exam Narrative: GENERAL: Well-appearing, well-nourished, and in no acute distress. HEAD: Normocephalic, atraumatic. EYES: EOMI. No redness or drainage. Conjunctivae normal. ENT: Mucous membranes pink and moist. NECK: Normal AROM. CHEST: No respiratory distress. EXTREMITIES: Left wrist: Point tenderness to the ulnar styloid. No tenderness to the distal radius or remainder of the wrist or hand. No tenderness to the remainder of the forearm. No erythema or edema noted. No ecchymosis. Distal sensation intact. Capillary refill normal. Radial pulse normal. Pain with passive flexion and extension. No pain with internal or external rotation, ulnar or radial deviation. SKIN: Warm, dry, no rash. Capillary refill normal. Normal skin turgor. NEURO: No focal deficits. Alert and oriented x3. Gait steady. PSYCH: Normal affect. No signs of depression or anxiety. Course Course Level of Care: Express Care Visit Vital Signs Vital signs: Vital Signs Temperature 97.8 F 09/24/23 19:11 Pulse Rate 78 09/24/23 19:11 Respiratory Rate 16 09/24/23 19:11 Blood Pressure 143/86 H 09/24/23 19:11 Pulse Oximetry 100 09/24/23 19:11 Oxygen Delivery Room Air 09/24/23 19:11 Temperature 97.8 F 09/24/23 19:11 Pulse Rate 78 09/24/23 19:11 Respiratory Rate 16 09/24/23 1
== END 2023-09-24 19:57 | disposition home or self-care (01) ==
PROVIDERS: Emergency Provider Nurse Practitioner; PCP Family Medicine
DX: M25.532 Pain in left wrist (principal)
CPT/HCPCS: 73110; 99213; G0463

== ENCOUNTER 2024-04-09 17:55 | Emergency (ER) | payer OTHER, SELFPAY ==
--- NOTE | ~2024-04-09 | XR_ITS ---
CHEST RADIOGRAPH, PA AND LATERAL CLINICAL HISTORY: Cough . COMPARISON: 02/19/2020 TECHNIQUE: PA and lateral views of the chest. FINDINGS The cardiomediastinal silhouette is unremarkable. The lungs are clear. Visualized osseous structures and soft tissues are unremarkable. IMPRESSION: No focal infiltrate or effusion. Reviewed, dictated and finalized at location A. B THERAPIST
--- NOTE | 2024-04-09 17:58 | ED.URI ---
HPI - URI/Sore Throat General Chief Complaint: Upper Respiratory Infection Stated Complaint: Cough Time Seen by Provider: 04/09/24 19:00 Source: patient and RN notes reviewed Mode of arrival: ambulatory Limitations: no limitations History of Present Illness HPI Narrative: 48-year-old female presents with concern for 3 week history of cough. She reports coughing fits that make her chest and ribs hurt. She denies fever,, body aches, chills, sweats, sore throat, nasal congestion, nasal drainage, nausea, vomiting. She reports she has an albuterol inhaler and is tried that several times throughout the illness without relief of her symptoms. She also reports a history of a collapsed lung. MD elicited complaint: cough Related Data Home Medications ?Medication ?Instructions ?Recorded ?Confirmed ?Last Taken ?Type amitriptyline 25 mg tablet 25 mg PO DAILY 09/24/23 09/24/23 Unknown History furosemide 20 mg tablet 20 mg PO DAILY 09/24/23 09/24/23 Unknown History Allergies Allergy/AdvReac Type Severity Reaction Status Date / Time diphenhydramine (From Allergy Intermediate Rash Verified 04/09/24 18:39 Benadryl) Sulfa (Sulfonamide Allergy Intermediate Rash Verified 04/09/24 18:39 Antibiotics) Review of Systems Review of Systems: CONSTITUTIONAL: Denies malaise, chills, sweats, or fever. EYES: Denies visual changes, redness, or discharge. ENT: Denies rhinorrhea, congestion, sinus pain, otalgia and sore throat. CARDIOVASCULAR: Denies chest pain, palpitations, or edema. RESPIRATORY: Reports cough and bilateral rib pain. Denies dyspnea. GASTROINTESTINAL: Denies abdominal pain, nausea, vomiting, diarrhea SKIN: Denies rash or itching. MUSCULOSKELETAL: Denies myalgia. NEUROLOGIC: Denies headache. All systems reviewed & are unremarkable except as noted in HPI and below PMFSH Past Medical History Medical History Anemia Bronchitis Fibroids Menorrhagia with regular cycle Migraine Surgical History Surgical History H/O: x2 Family History Family History Other Diabetes mellitus Hypertension Social History Social History Smoking status: Never smoker Substance use: never Gender identity (if verbalized by the patient): Female Comments At time of signature, agree with nursing past medical, surgical, social and family history. There is no relevant family history pertinent to the presenting complaint Exam Narrative: GENERAL: Well-appearing, well-nourished, and in no acute distress. HEAD: Normocephalic EYES: PERRLA, conjunctivae clear ENT: Nares clear. Mucous membranes moist. TM pearly arriaga with dull light reflex bilaterally; no tragal tenderness. Oropharynx not erythematous without lesions. Tonsils not enlarged and without exudate, no drooling, no hoarseness, no trismus, uvula midline. NECK: Supple. No lymphadenopathy CHEST: Clear to auscultation, breath sounds equal. No wheezing, rhonchi, rales, or stridor. No respiratory distress, speaks in full sentences. Cough noted HEART: Regular rate and rhythm. No murmur heard. SKIN: Warm, dry, no rash. NEURO: Alert and oriented x3. PSYCH: Normal mood and affect Course Course Emergency Course: Patient is aware of diagnosis, understands and agrees to treatment plan. Anticipatory guidance given. Patient agrees to follow-up as directed and is aware of reasons to seek care at the emergency department. Portions of this record may have been created with voice recognition software Level of Care: Express Care Visit Vital Signs Vital signs: Reviewed. MDM - URI/Sore Throat MDM Narrative Medical decision making narrative: Differential diagnosis considered: Tucker virus, strep pharyngitis, allergic rhinitis, upper respiratory tract infection, sinusitis, rhinosinusitis, nasopharyngitis. viral pharyngitis, otitis media, otitis externa, pneumonia, bronchitis, viral cough syndrome, viral syndrome, and influenza. Exam findings show no acute concerns or changes; patient is non-toxic appearing and is in no distress. Patient is appropriate for outpatient treatment and follow-up. Lab Data Attestation: I reviewed the patient's lab results. Imaging Data My impression: Images reviewed, interpreted by radiologist, agree, see report. Radiologist's impression: CHEST RADIOGRAPH, PA AND LATERAL CLINICAL HISTORY: Cough . COMPARISON: 02/19/2020 TECHNIQUE: PA and lateral views of the chest. FINDINGS The cardiomediastinal silhouette is unremarkable. The lungs are clear. Visualized osseous structures and soft tissues are unremarkable. IMPRESSION: No focal infiltrate or effusion. Critical Care Time Critical Care Time Critical Care Time: No Discharge Plan Discharge Clinical Impression: Lower respiratory tract infection Patient Disposition: Home, Self-Care Condition: Stable Instructions: Antibiotic Form, Acute Cough (ED) Additional Instructions: Your chest x-ray is normal 1) Please follow-up with your primary care doctor in the next 1-2 days. 2) If you have any worsening of symptoms or any other urgent concerns please go to the ER. 3) Please take medications as prescribed and continue taking your home medications as usual. 4) Please read and follow information included in discharge instructions. Patient Language: Kyrgyz Prescriptions: New azithromycin [Zithromax Z-Eris] 250 mg tablet See Rx Instructions .ROUTE .COMPLEX Qty: 6 0RF Rx Instructions: take 500 mg today (day 1), then 250 mg for 4 days (days 2-5) methylprednisolone [Medrol (Eris)] 4 mg tablets,dose pack See Rx Instructions .ROUTE .COMPLEX Qty: 21 0RF Rx Instructions: orally per package directions No Action amitriptyline 25 mg tablet 25 mg PO DAILY furosemide 20 mg tablet 20 mg PO DAILY Follow-up/Referrals: Xavier,Mani Gant MD [Primary Care Provider] - Stand Alone Forms: Work/School Release IP Time of Disposition: 19:13
[2024-04-09 18:12] VITALS: BP 162/90; PULSE 69; RESP 16; TEMP 36.3; O2SAT 100
== END 2024-04-09 19:20 | disposition home or self-care (01) ==
PROVIDERS: Emergency Provider Nurse Practitioner; PCP Family Medicine
DX: J22 Unspecified acute lower respiratory infection (principal)
CPT/HCPCS: 71046; 99213; G0463

== ENCOUNTER 2024-04-27 11:54 | Emergency (ER) | payer OTHER, SELFPAY ==
[2024-04-27 12:09] VITALS: BP 163/99; PULSE 77; RESP 16; TEMP 37.1; O2SAT 99
[2024-04-27 12:12] LABS: EDUAAPPEAR Clear; EDUABILI Negative (Negative); EDUABLOOD 3+ (Negative); EDUACOLOR1 Yellow; EDUAGLUCOSE Negative (Negative); EDUAKETONE Negative (Negative); EDUALEUKO Trace (Negative); EDUANITRATE Negative (Negative); EDUAPH 5.5; EDUAPROTEIN Negative (Negative); EDUAUROBILI 0.2
--- NOTE | 2024-04-27 12:16 | ED.FEMALEGU ---
HPI - Female Genitourinary General Chief complaint: Urogenital-Female Stated complaint: back/stomach/both sides pain, blood in urine Time Seen by Provider: 04/27/24 11:55 Source: patient Mode of arrival: ambulatory Limitations: no limitations History of Present Illness HPI Narrative: 48-year-old female presents to [facility] with complaints of lower back pain radiating around her abdomen and hematuria for the past week. Patient reports that her last period was in December 2023. Patient reports that she has been taking [id number] Aleve with minimal relief. Patient is a nonsmoker. Patient denies history of kidney stones. Patient denies fever, body aches, chills, nausea, vomiting or diarrhea. Patient reports that she had difficulty getting comfortable for sleep last night due to pain. MD elicited complaint: other ( hematuria) Onset (ago): week(s) (1) Vaginal discharge: none Relieving factors: none Related Data Allergies Allergy/AdvReac Type Severity Reaction Status Date / Time diphenhydramine (From Allergy Intermediate Rash Verified 04/27/24 11:57 Benadryl) Sulfa (Sulfonamide Allergy Intermediate Rash Verified 04/27/24 11:57 Antibiotics) Review of Systems Constitutional: Constitutional: Denies chills and Denies fatigue ENT: Denies dizziness, Denies nasal congestion and Denies sore throat Cardiovascular: Cardiovascular: Denies chest pain Respiratory: Respiratory: Denies cough and Denies dyspnea Gastrointestinal: Gastrointestinal: Reports abdominal pain, Denies diarrhea, Denies nausea and Denies vomiting Genitourinary: Genitourinary: Reports hematuria, Denies nocturia, Reports flank pain, Denies urinary incontinence and Denies vaginal discharge Integumentary/Breasts: Skin/Breast: Denies rash Neurologic: Denies vertigo, Denies dizziness, Denies syncope, Denies headache(s) and Denies focal weakness PMFSH Past Medical History Medical History Bronchitis Anemia Menorrhagia with regular cycle Fibroids Migraine Surgical History Surgical History H/O: x2 Family History Family History Other Diabetes mellitus Hypertension Social History Social History Smoking status: Never smoker Substance use: never Gender identity (if verbalized by the patient): Female Comments At time of signature, I agree with nursing past medical, surgical, social and family history. There is no relevant family history pertinent to the presenting complaint. Exam Const: General: healthy appearing and no acute distress Nutritional Appearance: well nourished Orientation/consciousness: patient oriented x3 Limitations: no limitations HENMT: Head: normal to inspection Eyes: Conjunctivae: conjunctivae normal Neck: Neck: normal visual inspection Resp: Effort & Inspection: normal respiratory effort and not labored Auscultation: clear to auscultation bilaterally, no crackles, no rales, no rhonchi and no wheezes Cardio: Rate: regular rate Rhythm: regular rhythm Heart sounds: no murmurs GI: Inspection: non-distended GI Palp: Yes Soft to palpation, No Tenderness to palpation present (GI), No Guarding due to palpation present (GI) and No Rigid due to palpation : General: Yes bladder normal to palpation and Yes CVA tenderness bilateral ( Left is worse than right) Skin: General skin exam: normal color Rashes: no rashes Wounds: no wounds Neuro: General: patient oriented x3 and moves all extremities Speech: normal speech Gait exam (Neuro): Normal gait present Psych: Appearance: grossly normal Affect: normal affect Attitude: cooperative Course Course Level of Care: Express Care Visit Vital Signs Vital signs: Vital Signs Temperature 37.1 C 04/27/24 12:09 Pulse Rate 77 04/27/24 12:09 Respiratory Rate 16 04/27/24 12:09 Blood Pressure 163/99 H 04/27/24 12:09 Pulse Oximetry 99 04/27/24 12:09 Oxygen Delivery Room Air 04/27/24 12:09 Temperature 37.1 C 04/27/24 12:09 Pulse Rate 77 04/27/24 12:09 Respiratory Rate 16 04/27/24 12:09 Blood Pressure 163/99 H 04/27/24 12:09 Pulse Oximetry 99 04/27/24 12:09 Oxygen Delivery Room Air 04/27/24 12:09 Transfer Transfered to: [facility] Transfer rationale: flank pain, hematuria, concern for kidney stone Accepting physician: Dr. Rush Transfer comments: transfer form completed and signed. Called [place] and report was given to Dr. Rush MDM - Female Genitourinary MDM Narrative Medical decision making narrative: due to presentation and symptoms, there is a concern for kidney stone. Will have patient proceed to [facility] for further evaluation and imaging to rule out kidney stone at this time. called emergency room and report was given to Dr Rush. transfer form completed and signed. Differential Diagnosis Differential diagnosis: Likely ovarian cyst, ruptured ovarian cyst and other ( kidney stone) Lab Data Labs: Lab Results 04/27/24 Range/Units 12:11 POC Urine Color Yellow POC Urine Clarity Clear POC Urine pH 5.5 POC Ur Specif Mozier 1.030 POC Urine Protein Negative (Negative) POC Ur Glucose (UA) Negative (Negative) POC Urine Ketones Negative (Negative) POC Urine Blood 3+ (Negative) POC Urine Nitrite Negative (Negative) POC Urine Bilirubin Negative (Negative) POC Urine Urobilinogen 0.2 POC U Leukocyte Esteras Trace (Negative) Critical Care Time Critical Care Time Critical Care Time: No Discharge Plan Discharge Clinical Impression: Acute flank pain Patient Disposition: Acute Care Hospital Condition: Stable Additional Instructions: proceed immediately to [place] for further evaluation and imaging to rule out kidney stone Patient Language: Guamanian Follow-up/Referrals: Xavier,Mani Gant MD [Primary Care Provider] - Time of Disposition: 12:22
== END 2024-04-27 12:20 | disposition short-term general hospital (02) ==
PROVIDERS: Emergency Provider Nurse Practitioner Family; PCP Family Medicine
DX: R10.9 Unspecified abdominal pain (principal)
CPT/HCPCS: 81003; 99212; G0463

== ENCOUNTER 2024-04-27 13:23 | Emergency (ER) | payer OTHER, SELFPAY ==
--- NOTE | ~2024-04-27 | CT_ITS ---
CLINICAL INDICATION: Flank pain and hematuria COMPARISON: None. TECHNIQUE: Multiple contiguous axial images of the abdomen and pelvis were performed without the admi nistration of intravenous contrast The dose-length product (DLP) was 429.03 mGy-cm. Automated exposure control and iterative reconstruction technique were employed. FINDINGS/OBSERVATIONS: Visualized lower thorax: The bilateral lung bases are clear. The heart is of normal size, without pericardial effusion. Small hiatal hernia is present. Liver: The liver demonstrates homogeneous attenuation and is not enlarged measuring 17 cm in longitudinal di mension. Gallbladder and biliary system: The gallbladder is only minimally distended, and otherwise unremarkable. Pancreas: Limited evaluation of the pancreas secondary to the lack of intravenous contrast. Spleen: The spleen demonstrates homogeneous attenuation and is not enlarged measuring 8 cm in longitudinal di mension. Kidneys: The bilateral kidneys are unremarkable, without hydronephrosis or renal calculi. Adrenal glands: Unremarkable. Gastrointestinal tract: Colonic diverticulosis without surrounding inflammatory change. Appendix: The air-filled appendix is of normal caliber (axial series, images 102 through 126). Vasculature: Unremarkable. Lymph nodes: No pathologically enlarged or morphologically suspicious lymph nodes within the retroperitoneum or at the root of the mesentery. Pelvic structures: The bladder is decompressed, with surrounding inflammatory change. The uterus is anteverted and anteflexed, markedly enlarged and nodular. Body wall and musculoskeletal: Small fat-containing umbilical hernia. No significant degenerative disease within the lower thoracic or lumbosacral spine. IMPRESSION: Bladder decompression with significant surrounding inflammatory change for which cystitis is suspecte d. No obstructive uropathy. Likely fibroid uterus. Reviewed, dictated and finalized at location A. [facility]IAISON IMPRESSION: Bladder decompression with significant surrounding inflammatory change for whic h cystitis is suspected. No obstructive uropathy. Likely fibroid uterus.
--- OUTSIDE RECORDS SUMMARY | 2024-04-27 13:25 | XMS_ITS | CONTINUITY OF CARE DOCUMENT ---
Author Name ying he Address Unknown Organization [facility] Address [address] [place] [address] Phone [phone] Care Team Providers Care Film Sound Coordinator Name Role Phone Mallika ASHRAF, Praful Unavailable [phone] Praful Tena MD Unavailable [phone] INSURANCE PROVIDERS Payer name Policy type / Coverage type [place] red republican ID [employer] [facility] Other [id number]
--- OUTSIDE RECORDS SUMMARY | 2024-04-27 13:25 | XMS_ITS | Clinical Summary ---
Author Organization [facility] Address [address] [place] [address] Care Team Providers Care Shorthand Teacher Name Role Phone Mani Park MD Primary Care Provider Allergies Active Allergy Reactions Criticality Noted Date Comments Diphenhydramine Hives,Other (See comments),Unknown Medium 07/26/2020 Sulfa (Sulfonamide Antibiotics) Itching,Hives,Nausea And Vomiting,Rash Medium 12/17/2019 Medications docusate sodium (COLACE) 100 mg capsule Stool Softener Active ibuprofen (ADVIL,MOTRIN) 800 mg tablet as needed 1 Active psyllium (METAMUCIL) 3.4 gram packet 3.4 g as needed Active furosemide (LASIX) 20 mg tablet Take 1 tablet (20 mg total) by mouth daily as needed (edema) 30 tablet 1 2 Active amitriptyline (ELAVIL) 25 mg tablet Take 1 tablet (25 mg total) by mouth as needed (migraines) 90 tablet 2 Active fluticasone propionate (FLOVENT HFA) 44 mcg/actuation inhalerIndications :COVID Inhale 2 puffs 2 (two) times a day Rinse mouth with water after use. Do not swallow. 1 each 2 2 Active albuterol HFA (Ventolin HFA) 90 mcg/actuation inhalerIndications :COVID Inhale 2 puffs every 4 (four) hours as needed for wheezing or shortness of breath 8 g 5 2 Active atorvastatin (LIPITOR) 10 mg tabletIndications: Hyperlipidemia, unspecified hyperlipidemia type Take 1 tablet (10 mg total) by mouth nightly 90 tablet [address] (PROTONIX) 40 mg EC tablet Take 1 tablet (40 mg total) by mouth daily 90 tablet 3 4 Active ferrous sulfate 325 mg (65 mg of elemental iron) tabletIndications: Iron Deficiency Anemia Take 1 tablet (325 mg total) by mouth 2 (two) times a day Active Active Problems Problem Noted Date Diagnosed Date Gastroesophageal reflux disease without esophagi tis 04/18/2022 Hypercholesterolemia 04/18/2022 Iron deficiency anemia 04/18/2022 Mild intermittent asthma 04/18/2022 Chronic insomnia 04/18/2022 Neck pain 04/03/2022 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 Encounter for annual health examination 03/03/20 22 Neck mass 03/03/2022 Other chest pain 02/01/2022 Overview (02/01/2022): condition acute refer to dr kenney History of COVID-19 02/01/2022 NICOLAS (dyspnea on exertion) 02/01/2022 Localized edema 02/01/2022 Increased frequency of urination 03/09/2021 Constipation 07/26/2020 Disorder of lipid metabolism 07/26/2020 Headache 07/26/2020 Low back pain 07/26/2020 Migraine 07/26/2020 Rash 07/26/2020 Steatosis of liver 07/26/2020 Lower abdominal pain 07/26/2020 Unexplained weight loss 07/26/2020 Class 2 obesity due to exces s calories without serious comorbidity with body mass index (BMI) of 36.0 to 36.9 in adult 07/05/2020 Pulmonary arterial hypertension 06/14/2020 Ankle pain 12/03/2019 Chronic anemia 03/14/2019 Diverticulosis of colon without diverticulitis 0 03/14/2019 Abnormal finding of diagnostic imaging 0 Blood in urine 03/14/2019 Nephrocalcinosis 03/14/2019 Right inguinal hernia 03/14/2019 Uterine leiomyoma 03/14/2019 Calcaneal spur of left foot 10/21/2018 Encounters Date Type Department Care Team Description 03/03/2024 Telephone [facility] Obstetrical Gynecology [address] [place] [address] Bill Hollins MD from Last 3 Months Immunizations Immunization Administration Dates Next Due Influenza, Unspecified 03/20/2023(Deferred: Carrie ent Refused) Tdap 08/14/2013 Surgical History Surgery Date Site/Laterality Comments [id number] DRUG-SCR [id number] DRUG-SCR HYSTEROSCOPY 03/05/2019 - 03/04/2020 US GUIDED BIOPSY LYMPH NODE SUPERFICIAL LEFT 05/03/2021 N/A BREAST BIOPSY 05/03/2021 Left SECTION 1994, 2001 Medical History Medical History Date Comments Migraines Ear problems GERD (gastroesophageal reflux disease) Family History Medical History Relation Name Comments Hypertension Brother 2 No Known Problems Daughter Cirrhosis Father Prostate cancer Father Heart attack Maternal Grandfather No Known Problems Maternal Grandmother Diabetes Mother Heart failure Other No Known Problems Paternal Grandfather No Known Problems Paternal Grandmother Asthma Sister No Known Problems Son Breast cancer Neg Hx Ovarian cancer Neg Hx Relation Name Status Comments Brother 1 Brother 2 Alive Daughter Alive Father Maternal Grandfather Maternal Grandmother Mother Alive Other Alive Paternal Grandfather Paternal Grandmother Sister Alive Son Alive Social History Tobacco Use Types Packs/Day Years Used Date Smoking Tobacco: Never Smokeless Tobacco: Never Tobacco Cessation:Counseling Given: Not Answered Alcohol Use Standard Drinks/Week Comments No 0 (1 standard drink = 0.6 oz pur e alcohol) AUDIT-C Answer Date Recorded Q1: How often do you have a drink containing alc ohol? Monthly or less 03/20/2023 Q2: How many drinks containi ng alcohol do you have on a typical day when you are drinking? 1 or 2 03/20/2023 Q3: How often do you have si x or more drinks on one occasion? Less than monthly 03/20/2023 PHQ-2 Answer Date Recorded PHQ-2 Total Score (If total score is 3 or more points, staff should administer the PHQ-9) 0 03/20/2023 Comments No Sex and Gender Information Value Date Recorded Sex Assigned at Not on file Legal Sex Female 4:26 AM TAP GRINDER Gender Identity Not on file Sexual Orientation Not on file Obstetrics History Para Term AB IAB SAB Ectopic Multiple Livin g Live Births 3 2 2 Date Outcome GA Total Labor Labor/2nd/3rd Weight Sex Type Anes PTL Leanna A1 A5 Name Clin Term Term Comments Last Filed Vital Signs Vital Sign Reading Time Taken Comments Blood Pressure 130/80 01/09/2024 1:36 PM TAP GRINDER Pulse 90 03/20/2023 9:47 AM TAP GRINDER Temperature 36.4 C (97.5 F) 03/20/2023 9:47 AM TAP GRINDER Respiratory Rate 18 03/20/2023 9:47 AM TAP GRINDER Oxygen Saturation 98% 03/20/2023 9:47 AM TAP GRINDER Inhaled Oxygen Concentration - - Weight 107 kg (236 lb) 01/09/2024 1:36 PM TAP GRINDER Height 167.6 cm (5' 6 ) 01/09/2024 1:36 PM TAP GRINDER Body Mass Index 38.09 01/09/2024 1:36 PM TAP GRINDER Plan of Treatment Health Maintenance Due Date Last Done Comments Hepatitis C Screening 1974 Hepatitis B Screening 1992 Pneumococcal vaccine <65 (1 of 2 - PCV) 1993 DTaP/Tdap/Td Vaccine (2 - Td or Tdap) 08/15/2023 08/14/2013 Influenza Vaccine (#1) 2023 Breast Cancer Screening-Mammogram 03/14/2024 03/14/2023, 05/17/2022, 01/25/2021, Additional history exists Depression Screening 03/20/2024 03/20/2023, 09/07/2021, 07/26/2020 Cervical Cancer Screening 08/21/20242023, 08/22/2023, 04/30/2020 Regular Well Visit/Exam 18-64 08/21/2024, 03/20/2023, 03/03/2022, Additional history exists Colon Cancer Screening-Colonoscopy 09/13/20302020 Procedures Procedure Name Priority Date/Time Associated Diagnosis Comments HIGH RISK HPV DNA DETECTION WITH GENOTYPING Routine 08/22/2023 10:52 AM CDT Screening for cervical cancer Well woman exam DIAGNOSTIC MAMMOGRAM BILATERAL W HIRAM Schedule Routine, Read Routine (OP Routine) 03/14/2023 8:40 AM TAP GRINDER Breast pain in female COLONOSCOPY Routine 09/13/2020 from Last 3 Months or Most Recently Relevant to Health Maintenance Results * High Risk HPV DNA Detection with Genotyping (Molecular component) (08/22/2023 10:52 AM CDT) HPV HR 16 Not Detected Not Detected [facility] Comment:Testing performed by : [facility], [address] [place]., [address] HPV HR 18 Not Detected Not Detected [facility] Comment:Testing performed by : [facility], [address] [place]., [address] HPV HR Non 16/18 Not Detected Not Detected [facility] Comment: Interpretive Data Nucleic acid amplification for detection of high-risk Human Papilloma virus (HPV) is performed by the Sydni Lucina 6800 HPV test. This assay specifically detects HPV-16 and HPV-18 genotypes. The following HPV genotypes are detected as high-risk HPV: HPV-31, 33, 35, ,39, 45, 51, 52, 56, 58, 59, 66, and 68. This assay has been approved by the [place] Food and Drug Administration for detection of HPV in cervical specimens collected by a physician using an endocervical brush/spatula or cervical broom and placed in the ThinPrep Pap Test PreservCyt collection containers. The performance characteristics of this test have been verified by the [facility] Molecular Infectious Disease laboratory. Correlate with separately reported cytology results, as applicable. Interpretive data last revised 22 Testing performed by: [facility], [address] [place]., [address] Endocervical 08/22/2023 10:5 2 AM CDT 08/22/2023 5:30 PM CDT Narrative [facility] - 08/23/2023 2:48 AM CDT Clinical history and diagnosis->screen Testing type->Screening Last menstrual period (date if known)->08/19/23 Bill Hollins MD LAB BODY FLUIDS AND STO OLS ORDERABLES Final Result [facility] [address] Department [place] [address] [facility] * Diagnostic Mammogram Bilateral W Hiram (03/14/2023 8:40 AM TAP GRINDER) Anatomical Region Laterality Modality Breast Bilateral Mammography 03/14/2023 9:58 AM TAP GRINDER Impressions 03/14/2023 10:27 AM TAP GRINDER Oval masses in the middle outer central RIGHT breast correspond to benign cysts sonographically. No other suspicious finding is detected mammographically in EITHER breast , and there are no suspicious sonographic findings in the subareolar breasts bilaterally. OVERALL FINAL ASSESSMENT: BI-RADS Category 2: Benign. RECOMMENDATION: 1. Clinical follow-up for the patient's symptoms is recommended. Any further management, including decision to biopsy, should be based on clinical assessment. 2. Annual screening mammography is recommended. Dr. Simmons discussed the above findings and recommendations with the patient. Dictated by: Anjel Belle M.D. The radiology attending physician has personally reviewed this study, and had reviewed and/or edited this written report and agrees with it. Electronically signed by: Xochitl Simmons M.D. Narrative 03/14/2023 10:27 AM TAP GRINDER EXAMINATION: BILATERAL DIGITAL DIAGNOSTIC MAMMOGRAM INCLUDING CAD AND BILATERAL DIGITAL BREAST TOMOSYNTHESIS; BILATERAL BREAST SONOGRAM HISTORY: 47-year-old woman with bilateral nipple pain, itching, and dryness as well as prior excoriation. The excoriation of the nipples as since resolved without intervention. The patient has a history of core needle biopsy of the LEFT breast in May 2021 at an outside facility, reportedly demonstrating clustered apocrine microcysts. COMPARISON: Multiple prior studies, most recently 05/17/2022 and dating back to 12/31/2014. TECHNIQUE: Full field digital mammographic views of BOTH breasts were performed, including computer aided detection (CAD) and BILATERAL digital breast tomosynthesis (DBT). Directed ultrasound evaluation of BOTH breasts was performed. BREAST PARENCHYMAL COMPOSITION: There are scattered areas of fibroglandular density. MAMMOGRAM FINDINGS: At least 2 oval circumscribed masses measuring up to 0.4 cm are noted in the slightly outer central right breast at mid depth. There is no other suspicious abnormality in the RIGHT breast. A questioned focal asymmetry in the RIGHT breast effaces and appears similar to multiple prior mammograms on spot compression views. No new suspicious grouped calcifications, mass, or architectural distortion suggestive of malignancy is detected in the LEFT breast. SONOGRAM FINDINGS: Targeted ultrasound of BOTH breasts was performed in the subareolar regions given patient's symptoms. There is no suspicious sonographic abnormality in the subareolar regions of EITHER breast to explain the patient's symptoms. In the RIGHT breast at the 9 o'clock position, 2 cm from nipple, there are 3 small, oval anechoic masses measuring up to 0.4 cm compatible with benign cysts, which correspond to the oval masses seen on the mammogram. Procedure Note Xochitl Simmons MD - 03/14/2023 EXAMINATION: BILATERAL DIGITAL DIAGNOSTIC MAMMOGRAM INCLUDING CAD AND BILATERAL DIGITAL BREAST TOMOSYNTHESIS; BILATERAL BREAST SONOGRAM HISTORY: 47-year-old woman with bilateral nipple pain, itching, and dryness as well as prior excoriation. The excoriation of the nipples as since resolved without intervention. The patient has a history of core needle biopsy of the LEFT breast in May 2021 at an outside facility, reportedly demonstrating clustered apocrine microcysts. COMPARISON: Multiple prior studies, most recently 05/17/2022 and dating back to 12/31/2014. TECHNIQUE: Full field digital mammographic views of BOTH breasts were performed, including computer aided detection (CAD) and BILATERAL digital breast tomosynthesis (DBT). Directed ultrasound evaluation of BOTH breasts was performed. BREAST PARENCHYMAL COMPOSITION: There are scattered areas of fibroglandular density. MAMMOGRAM FINDINGS: At least 2 oval circumscribed masses measuring up to 0.4 cm are noted in the slightly outer central right breast at mid depth. There is no other suspicious abnormality in the RIGHT breast. A questioned focal asymmetry in the RIGHT breast effaces and appears similar to multiple prior mammograms on spot compression views. No new suspicious grouped calcifications, mass, or architectural distortion suggestive of malignancy is detected in the LEFT breast. SONOGRAM FINDINGS: Targeted ultrasound of BOTH breasts was performed in the subareolar regions given patient's symptoms. There is no suspicious sonographic abnormality in the subareolar regions of EITHER breast to explain the patient's symptoms. In the RIGHT breast at the 9 o'clock position, 2 cm from nipple, there are 3 small, oval anechoic masses measuring up to 0.4 cm compatible with benign cysts, which correspond to the oval masses seen on the mammogram. IMPRESSION: Oval masses in the middle outer central RIGHT breast correspond to benign cysts sonographically. No other suspicious finding is detected mammographically in EITHER breast , and there are no suspicious sonographic findings in the subareolar breasts bilaterally. OVERALL FINAL ASSESSMENT: BI-RADS Category 2: Benign. RECOMMENDATION: 1. Clinical follow-up for the patient's symptoms is recommended. Any further management, including decision to biopsy, should be based on clinical assessment. 2. Annual screening mammography is recommended. Dr. Simmons discussed the above findings and recommendations with the patient. Dictated by: Anjel Belle M.D. The radiology attending physician has personally reviewed this study, and had reviewed and/or edited this written report and agrees with it. Electronically signed by: Xochitl Simmons M.D. Christoph Saucedo MD IMG MAMMO PROCEDURES Final Resul t * Colonoscopy (09/13/2020) Anatomical Region Laterality Modality Other Historical Provider ENDOSCOPY PROCEDURES Cristal l Result from Last 3 Months or Most Recently Relevant to Health Maintenance [facility] [employer] Care Teams Shorthand Teacher Relationship Specialty Start Date End Date Mani Park MD PCP - General Family Medicine 08/06/23
--- OUTSIDE RECORDS SUMMARY | 2024-04-27 13:25 | XMS_ITS | Referral Summary ---
Author Organization [facility] Address [address] [place] [address] Care Team Providers Care Metal Riveter Name Role Phone Micah Lerma MD Primary Care Provider Source Comments [facility],non-owned Affiliates and Associated Physician Practices is amultiple site organization consisting of ambulatory clinics and hospital sitesin [place], [place], [place] and [place]. This disclosure is being madepursuant to the Care Everywhere program and may not contain all information available regarding this patient. Last updated 17.[facility] Allergies Active Allergy Reactions Criticality Noted Date Comments Sulfa Drugs Itching 12/17/2019 Medications * Be aware that medications may not be up to date on this document. Alwaysverify current medications with the patient. Medication Sig Dispensed Refills Start Date End Date Status ferrous sulfate 325 (65 FE) MG tablet every 24 hours Act flavio amitriptyline (ELAVIL) 25 MG tablet Take 25 mg by mouth as needed Active docusate sodium (STOOL SOFTENER) 100 MG capsule Stool Softener Active metroNIDAZOLE vaginal (METROGEL - VAGINAL) 0.75 % vaginal gel Insert 1 applicator into the vagina at bedtime for 5 nights 70 g 07/30/2020 Active Active Problems Problem Noted Date Diagnosed Date Morbid obesity 07/05/2020 Social History Tobacco Use Types Packs/Day Years Used Date Smoking Tobacco: Never Smokeless Tobacco: Never Alcohol Use Standard Drinks/Week Comments Yes 0 (1 standard drink = 0.6 oz pur e alcohol) AUDIT-C Answer Date Recorded Q1: How often do you have a drink containing alc ohol? Never 12/17/2019 Average Number of Drinks Not on file 020 Frequency of Binge Drinking Not on file 12/03 Sex and Gender Information Value Date Recorded Sex Assigned at Not on file Gender Identity Not on file Sexual Orientation Not on file Last Filed Vital Signs Vital Sign Reading Time Taken Comments Blood Pressure 95/69 07/16/2020 3:21 PM CDT Pulse 91 04/30/2020 10:19 AM ORTHOPEDIC PHYSICIAN Temperature 36.8 C (98.2 F) 04/13/2020 11:15 AM ORTHOPEDIC PHYSICIAN Respiratory Rate 16 12/23/2019 1:51 PM CDT Oxygen Saturation 98% 04/13/2020 11:15 AM ORTHOPEDIC PHYSICIAN Inhaled Oxygen Concentration - - Weight 102.5 kg (226 lb) 07/16/2020 3:21 PM CDT Height 167.6 cm (5' 6 ) 07/16/2020 3:21 PM CDT Body Mass Index 36.48 07/16/2020 3:21 PM CDT Plan of Treatment Not on file Procedures Procedure Name Priority Date/Time Associated Diagnosis Comments HPV DETECTION HIGH RISK MICHAELLE Routine 04/30/2020 3:40 PM ORTHOPEDIC PHYSICIAN Well woman exam from Last 3 Months or Most Recently Relevant to Health Maintenance Results * HPV DETECTION HIGH RISK MICHAELLE (04/30/2020 3:40 PM ORTHOPEDIC PHYSICIAN) High Risk Human Papilloma Result Not detected Not detected 05/05/2020 4:35 PM ORTHOPEDIC PHYSICIAN [facility] High Risk Human Papilloma Interp 05/05/2020 4:35 PM ORTHOPEDIC PHYSICIAN [facility] Comment:High Risk Human Fransisco lloma Virus was Not Detected. Pathology/Cytolo gy MISCELLANEOUS SAMPLES / Unknown 04/30/2020 3:40 PM ORTHOPEDIC PHYSICIAN 05/04/2020 11:48 AM ORTHOPEDIC PHYSICIAN Narrative [facility] - 05/05/2020 4:35 PM ORTHOPEDIC PHYSICIAN Nucleic acid isolated from the specimen was analyzed with a nucleic acid amplification test (FDA approved Gen-Probe HPV Assay) to detect high risk human papilloma virus (Types: 16, 18, 31, 33, 35, 39, 45, 51, 52, 56, 58, 59, 66, and 68). The reference range is Not Detected . Comment: These test results should not be used as the sole basis for clinical assessment and treatment of patients. These results should always be correlated with other available data (cytology, histology, and clinical information). Estela Honeycutt MD LAB - MICROB IOLOGY ORDERABLES Performing Organization Address City/State/[facility] Co de Phone Number [facility] [address] [place] [address], [facility] [phone] from Last 3 Months or Most Recently Relevant to Health Maintenance Care Teams Metal Riveter Relationship Specialty Start Date End Date Micah Lerma MD [address], [place] [id number] PCP - General Internal Medicine 05/24/20
--- OUTSIDE RECORDS SUMMARY | 2024-04-27 13:25 | XMS_ITS | Data Portability ---
Author Organization [facility] Address [address] [place] [address] Care Team Providers Care Sales Support Rep Name Role Phone SAHNIFERNANDO GONZALEZEL [employer] MICAH WU Primary Care Provider JULIA COLÓN Telephoner Assessment No assessment recorded. Plan of Treatment Reminders Order Date Submit Date Provider Last Modified By Organization Details Last Modified Time Details Appointments ANY 15 2024 10:30A Ebenezer Park MD Not available Not available Not available Lab CBC 2024 025 [email or web address] [facility] (Lab), [address] [place], [address], 03/31/2024 17:27:03 CMP, serum or plasma 2024 025 [email or web address] [facility] ([facility]), [address] [place], [address], 03/31/2024 17:27:14 lipid panel, serum 2024 025 [email or web address] [facility] ([facility]), [address] [place], [address], 03/26/2024 10:00:24 iron, serum 2024 025 [email or web address] [facility] ([facility]), [address] [place], [address], 04/09/2024 11:00:37 Referral podiatris t referral 2022 023 thomas Brown DPM, [address] [facility], [place], [address], 04/13/2023 11:25:39 Procedures None recorded. Surgeries None recorded. Imaging US, duplex, venous, lower extremity - left leg, stat hold and call dr emery cell 2023 024 [facility] Patient Access Centralized Scheduling, Centralized Scheduling, [address] [place], [address], 08/08/2023 09:04:28 Medication Orders triamcino lone acetonide 40 mg/mL suspensio n for injection 2023 024 [email or web address] Not available 03/17/2024 11:29:07 ProAir HFA 90 mcg/actua tion aerosol inhaler 2022 023 [email or web address] [id number], [address], [place], [place], [id number], 02/28/2023 17:26:20 pantopraz ole 40 mg tablet,de layed release 2022 023 [email or web address] [id number], [address] , [place], [place], [id number], 02/28/2023 17:26:20 Patient TargetsNo targets recorded. Patient Instructions Encounter Date Encounter Id Patient Instructions Last Modified By Organization Details Last Modified Time 11/29/2022 [id number] A healthy lifestyle: care instructions Not available 11/29/2022 17:40:27 03/19/2024 [id number] A healthy lifestyle: care instructions Not available 03/19/2024 14:21:43 Reason for Referral Speck Dyer Referral for Pain of left heel Referring Physician: Mani Park, Family Medicine, Encounter Date: 11/29/2022 Results Created Date Observation Date Name Description Value Unit Range Abnormal Flag Note LastModifiedBy Organization Detail LastModifiedTime 08/08/19 24 08/06/2023 US, duple x, venou s, lower extre mity No observ ation record ed. [place] [id number] [facility] , [place], [address], 08/08/2023 12:03:54 Result Notes None recorded. 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 Not Available [facility] 1 09:39:48 Blood in urine 81580405 Active 2019 Not Available [facility] 1 09:39:48 Chronic anemia 195686096 Active 2019 Not Available [facility] 1 09:39:48 Uterine leiomyoma 30014354 Active 2019 Not Available [facility] 1 09:39:48 Right inguinal hernia 960771983 Active 2019 Not Available [facility] 1 09:39:48 Eruption 906221516 Active Not Available [facility] 09:39:48 Pulmonary arterial hypertensi on 85852754 Active 2020 Not Available [facility] 09:39:48 Constipati on 61187090 Active Not Available [facility] 09:39:48 Mild intermitte nt asthma 945892060 Active 2022 Mani Park MD Attn: Accounting ,[address] [facility], [place], [address] , [facility] 3 17:50:16 Chronic insomnia 670652158 Active 2022 Mani Park MD Attn: Accounting ,[address] [facility], [place], [address] , [place] - [facility] 3 17:50:17 Iron deficiency anemia 77735089 Active 2022 Mani Park MD Attn: Accounting ,[address] [facility], [place], [address] , [place] [facility] 3 17:50:18 Gastroesop hageal reflux disease without esophagiti s 621066885 Active 2022 Mani Park MD Attn: Accounting ,[address] [facility], [place], [address] , [place] [facility] 17:50:20 Hyperchole sterolemia 44741117 Active 2022 Mani Park MD Attn: Accounting ,[address] [facility], [place], [address] , [place] [facility] 17:50:24 Morbid obesity 363311464 Active 2022 Mani Park MD Attn: Accounting ,[address] [facility], [place], [address] , [place] [facility] 3 11:50:44 Pain of left heel 1780263677632 109 Active 2022 Mani Park MD Attn: Accounting ,[address] [facility], [place], [address] , [place] [facility] 17:15:07 Obesity 677248182 Active 2022 Mani Park MD Attn: Accounting ,[address] [facility], [place], [address] , [place] [facility] 17:23:42 Cough 62874039 Active 2022 Mani Park MD Attn: Accounting ,[address] [facility], [place], [address] , [place] [facility] 16:45:28 Pain of left knee joint 9349595958447 07 Active 2023 Mani Park MD Attn: Accounting ,[address] [facility], [place], [address] , [facility] 4 17:17:48 Disorder of lipid metabolism 947585370 Active Not Available [facility] 09:39:48 Increased frequency of urination 808738761 Active Not Available [facility] 09:39:48 Lower abdominal pain 31846896 Active Not Available [facility] 09:39:48 Low back pain 712169478 Active Not Available [facility] 09:39:48 Migraine 07152535 Active Not Available [facility] 09:39:48 Notes:Some problems listed i n Documents: #[id number], #[id number] could not be added to this patient's chart. Please review these documents and add these problems to the patient's chart manually as needed. Problem Notes None recorded. Procedures Surgical History Date Name Laterality Status Provider Name and Address Organization Details Recorded Time Caesarean Section completed Micah Wu MD Attn: Accounting,[address] [place], [address], [facility] 06/04/2017 17:25:19 Imaging Results Imaging Date Name Status LastModified by Organiz ation Details LastModified Time 08/06/2023 US, duplex, venous, lower extremity completed [address], [address], 08/08/2023 12:03:54 Procedure Notes None recorded. Medical Equipment None Reported. Allergies Allergen ID Allergen Name Allergen Category Reaction Reaction Severity Criticality Documentation Date Start Date Code Code System Note Provider Name and Address Organization Details Recorded Time 215376 Substance with sulfonami de structure and antibacte rial mechanism of action (substanc e) medicatio n hives mild Not available 10/21/2018 41850 8003 SNOMED Not Available Not Available Not Available 010104 Benadryl medicatio n Not available Not available Not available 02/24/202024845 7 RxNorm She think s this may have worse bradley her initi al aller gic react ion Not Available Not Available Not Available Medications Name Sig Start Date Stop Date Status Note LastModified by Organization Details LastModified Time cyclobenzap rine 10 mg tablet 05/15 completed Not Available Not Available Not Available amoxicillin 500 mg capsule TAKE 1 CAPSULE BY MOUTH EVERY 8 HOURS FOR 10 DAYS 04/18 completed Not Available Not Available Not Available Miralax 17 gram/dose oral powder Take 17 g every day by oral route as needed for 7 days. 07/05 completed Not Available Not Available Not Available promethazin e-DM 6.25 mg-15 mg/5 mL oral syrup 10/21 completed Not Available Not Available Not Available prednisone 10 mg tablet active Not Available Not Available Not Available Gel-Bill 0.4 % dental BRUSH TEETH APPLY TO DRY TOOTHBRUS H & BRUSH ON AT BEDTIME active Not Available Not Available No t Available atorvastati n 10 mg tablet active Not Available Not Available Not Available ibuprofen 800 mg tablet 03/29 completed Not Available Not Available Not Available Lidocaine Viscous 2 % mucosal solution 03/29 completed PRN Not Available Not Available Not Available fluconazole 150 mg tablet active Not Available Not Available Not Available benzonatate 200 mg capsule Take 1 capsule 3 times a day by oral route for 10 days. 04/18 completed Not Available Not Available Not Available meloxicam 15 mg tablet active Not Available Not Available Not Available sucralfate 1 gram tablet 04/18 completed Not Available Not Available Not Available dextrometho sarah enesin 10 mg-100 mg/5 mL oral liquid Take 10 mL every 4 hours by oral route as needed for 5 days. 03/29 completed Not Available Not Available Not Available prednisone 20 mg tablet active Not Available Not Available Not Available gabapentin 400 mg capsule Take 1 capsule 3 times a day by oral route as directed for 30 days. 09/01 completed Not Available Not Available Not Available Tylenol Arthritis Pain 650 mg tablet,exte nded release Take 2 tablets every 8 hours by oral route as needed for 5 days. 10/11 completed Not Available Not Available Not Available metronidazo le 500 mg tablet active Not Available Not Available Not Available ciprofloxac in 250 mg tablet Take 1 tablet every 12 hours by oral route as directed for 3 days. 10/27 completed Not Available Not Available Not Available ciprofloxac in 500 mg tablet 04/18 completed Not Available Not Available Not Available tramadol 50 mg tablet Take by oral route for 30 days. active Not Available Not Available No t Available triamcinolo ne acetonide 0.1 % topical cream 10/21 completed Not Available Not Available Not Available ketorolac 0.5 % eye drops active Not Available Not Available Not Available amoxicillin 875 mg tablet active Not Available Not Available Not Available famotidine 20 mg tablet Take 1 tablet twice a day by oral route for 90 days. active Not Available Not Available No t Available amitriptyli ne 25 mg tablet Take 1 tablet every day by oral route as directed for 90 days. active Not Available Not Available No t Available baclofen 10 mg tablet 12/28 completed Not Available Not Available Not Available doxycycline monohydrate 100 mg capsule One po BID for 5 days (Capsules or Tablets) 03/16 completed Not Available Not Available Not Available triamcinolo ne acetonide 40 mg/mL suspension for injection Take 60 mg by injection route for 1 day. 03/17 completed Not Available Not Available Not Available cephalexin 500 mg capsule 03/17 completed Not Available Not Available Not Available pantoprazol e 40 mg tablet,horacio yed release Take 1 tablet every day by oral route for 90 days. active Not Available Not Available No t Available polymyxin B sulfate 10,000 unit-trimet hoprim 1 mg/mL eye drops active Not Available Not Available Not Available gabapentin 300 mg capsule Take 1 capsule 3 times a day by oral route as directed for 30 days. 06/14 completed Not Available Not Available Not Available montelukast 10 mg tablet Take 1 tablet every day by oral route around the clock for 30 days. 03/29 completed Not Available Not Available Not Available hydroxyzine HCl 25 mg tablet 02/23 completed Not Available Not Available Not Available codeine 10 mg-guaifene sin 100 mg/5 mL oral liquid Take 10 mL every 6 hours by oral route as needed for 6 days. 06/14 completed Not Available Not Available Not Available mupirocin 2 % topical ointment 10/27 completed Not Available Not Available Not Available furosemide 20 mg tablet Take 1 tablet every day by oral route as needed for 10 days. active Not Available Not Available No t Available ibuprofen 600 mg tablet TAKE 1 TABLET BY MOUTH EVERY 6 HOURS NEEDED FOR PAIN CONTROL WITH FOOD active Not Available Not Available No t Available methylpredn isolone 4 mg tablets in a dose pack active Not Available Not Available Not Available albuterol sulfate HFA 90 mcg/actuati on aerosol inhaler Inhale 2 puffs every 4 hours by inhalatio n route as needed. active Not Available Not Available No t Available fluticasone propionate 50 mcg/actuati on nasal spray,suspe nsion 10/21 completed Not Available Not Available Not Available amoxicillin 875 mg-potassiu m clavulanate 125 mg tablet 04/18 completed Not Available Not Available Not Available triamcinolo ne acetonide 0.05 % topical ointment 10/27 completed Not Available Not Available Not Available Wal-Tussin DM 10 mg-100 mg/5 mL oral syrup 03/29 completed Not Available Not Available Not Available Flovent HFA 44 mcg/actuati on aerosol inhaler 2 puffs inhaled BID (Please cancel the order for Asmanex) active Not Available Not Available No t Available Feosol 325 mg (65 mg iron) tablet Take 1 tablet twice a day by oral route. active Not Available Not Available No t Available naproxen 07/05 completed Not Available Not Available Not Available Stool Softener active Not Available Not Available Not Available Stool Softener 100 mg tablet 1 tablet by oral route. active Not Available Not Available No t Available Metamucil (with sugar) 3.4 gram/7 gram oral powder Take 3.4 g every day by oral route as needed for 30 days. 10/11 completed Not Available Not Available Not Available Asmanex HFA 100 mcg/actuati on aerosol inhaler Inhale 2 puffs twice a day by inhalatio n route as directed for 30 days. 03/16 completed Not Available Not Available Not Available Vitals Date Recorded Body height Body temperature Body mass index (BMI) Body weight Oxygen saturation Oxygen saturation in Arterial blood by Pulse oximetry Heart rate Systolic blood pressure Diastolic blood pressure Provider Name and Address Organization Details Last Updated DateTime 3 170.18 cm 97.6 [degF] 37 kg/m2 998541. 9 g 100 % 100 % 68 /min 122 mm[Hg] 72 mm[Hg] Shayla Santana MA [facility] 3 16:46:57 Date Recorded Body height Body mass index (BMI) Body weight Body temperature Oxygen saturation Oxygen saturation in Arterial blood by Pulse oximetry Heart rate Systolic blood pressure Diastolic blood pressure Provider Name and Address Organization Details Last Updated DateTime 3 170.18 cm 36.6 kg/m2 475627. 61 g 97.6 [degF] 99 % 99 % 81 /min 118 mm[Hg] 88 mm[Hg] Shayla Santana MA [facility] 3 16:04:48 Date Recorded Body height Body mass index (BMI) Body weight Oxygen saturation Oxygen saturation in Arterial blood by Pulse oximetry Heart rate Respiratory rate Systolic blood pressure Diastolic blood pressure Provider Name and Address Organization Details Last Updated DateTime 4 170.18 cm 36.9 kg/m2 785295. 31 g 100 % 100 % 85 /min 16 /min 120 mm[Hg] 86 mm[Hg] Pascale Boswell MA [facility] 4 16:38:08 Date Recorded Body height Body mass index (BMI) Body weight Body temperature Oxygen saturation Oxygen saturation in Arterial blood by Pulse oximetry Heart rate Systolic blood pressure Diastolic blood pressure Provider Name and Address Organization Details Last Updated DateTime 4 170.18 cm 37.1 kg/m2 585541. 39 g 97.7 [degF] 98 % 98 % 82 /min 118 mm[Hg] 70 mm[Hg] Shayla Santana MA [facility] 4 17:05:26 Date Recorded Body height Body mass index (BMI) Body weight Oxygen saturation Oxygen saturation in Arterial blood by Pulse oximetry Heart rate Systolic blood pressure Diastolic blood pressure Provider Name and Address Organization Details Last Updated DateTime 5 170.18 cm 37.1 kg/m2 737388. 39 g 97 % 97 % 93 /min 120 mm[Hg] 72 mm[Hg] Shayla Santana MA [facility] 5 12:47:29 Social History Question Answer Notes LastModified by Organizat ion Details LastModified Time Tobacco Smoking Status Never Smoker June Kathi WALLY [place], [place] - [facility] 04/16/2014 12:40:06 Do You Have An Advance Directive? No Information not available 06/14/2020 What Is Your Level Of Alcohol Consumption? Occasional Information not available 10/28/2019 Are You Blind Or Do You Have Difficulty Seeing? No Information not available 07/05/2020 What Is Your Level Of Caffeine Consumption? Occasional Information not available 07/05/2020 How Much Tobacco Do You Chew? None Information not available 10/28/2019 Have You Been To An Area Known To Be High Risk For COVID-19? Yes Information not available 06/14/2020 Are You Deaf Or Do You Have Serious Difficulty Hearing? No Information not available 07/05/2020 What Type Of Diet Are You Following? REGULAR Information not available 10/28/2019 Do You Or Have You Ever Used E-cigarettes Or Vape? Never Used Electronic Cigarettes Information not available 10/21/2018 Are There Any Guns Present In Your Home? No Information not available 10/28/2019 Hard Of Hearing Or Deaf In One Or Both Ears? No Information not available 10/28/2019 Legally Blind In One Or Both Eyes? No Information no t available 10/28/2019 What Was The Date Of Your Most Recent Tobacco Screening? 03/19/2024 Information not available 03/19/2024 Performs Monthly Self-breast Exam? No Information no t available 10/28/2019 Do You Use Your Seat Belt Or Car Seat Routinely? Yes Information not available 06/14/2020 Seat Belts Used Routinely Yes Information not available 10/28/2019 Smoke Alarm In Home Yes Information not available 10/28/2019 Do You Have Smoke And Carbon Monoxide Detectors In Your Home? Yes Information not available 06/14/2020 Do You Or Have You Ever Used Smokeless Tobacco? Never Used Smokeless Tobacco Information not available 10/21/2018 How Much Tobacco Do You Smoke? No Information not available 10/04/2017 Do You Use Any Illicit Or Recreational Drugs? No Information not available 07/05/2020 Has Tobacco Cessation Counseling Been Provided? No Information not available 06/14/2020 On What Date Was Tobacco Cessation Counseling Provided? 03/19/2024 Information not available 03/19/2024 How Many Years Have You Smoked Tobacco? 0 Information not available 10/04/2017 Sex: Female Functional Status Question Answer Note LastModified by Organization D etails LastModified Time Are you able to care for yourself? Yes Information not available 07/05/2020 What is your exercise level? Moderate Information not available 07/05/2020 Mental Status None recorded. Family History Relationship Description Onset Age of this Age Resolved Age Notes LastModified by Organization Details LastModified Time Mother Diabetes mellitus asavala Not available 2014 12:40:06 Mother Hypertensive disorder asavala Not available 2014 12:40:06 Father Diabetes mellitus asavala Not available 2014 12:40:06 Father Hypertensive disorder asavala Not available 2014 12:40:06 Father Malignant tumor of prostate asavala Not available 2014 12:40:06 Medical History Condition Response Coronary Artery Disease N Other N Atrial Fibrillation N High Blood Pressure N Kidney or Bladder Problems N Thyroid Problems N Depression N COPD N Blood Clots N GI Problems N Eating Disorder N Skin Problems N Anemia Y Heart Attack ([place]) N Anxiety Disorder N Diabetes N Muscle, Joint, or Bone Problems N Seizures/Epilepsy N Acid Reflux (GERD) Y Cancer N Stroke N Asthma N Allergies Y ADHD N Substance Abuse N High Cholesterol Y Hepatitis N Liver Disease N Headaches Y Schizophrenia N Hypertension N Osteoporosis N Heart Failure N Gynecological History Statement/Question Response Current Control Method None Date of LMP 06/30/2020 LMP Definite Obstetrics History GPAL:G 0 P 0 0 0 0 Immunizations Vaccine Type Date Status Note Provider Nam e and Address Organization Details Recorded Time Tdap 08/14/2013 completed Not Available [facility] 02/20/2022 22:01:45 Past Encounters Encounter ID Performer Location Encounter Start Date Encounter Closed Date Diagnosis/Indication Diagnosis SNOMED-CT Code Diagnosis ICD10 Code Diagnosis Note [id number] June WALLY Armenta (Adult Med) [address] [place] [id number] 04/16/2014 12:13:22 04/17/2014 14:18:28 General examination of patient [id number] 38 y/o BF who was seen as a new patient to me 08/14/2013, she never had her labs done. She is aware that she needs to schedule an appointmen t with her new gynecologi st. She has refused the Flu vaccine today .MMG in September. Eruption [id number] Mild erythemato us rash around her neck of unclear etiology Migraine 59390738 Stable on Amitriptyl ine, labs and follow up. [id number] MD Neftali Fang (Adult Med) [address] [place] [id number] 12/28/2014 09:41:55 12/28/2014 13:58:57 Disorder of lipid metabolism 429534336 E78.9 Her labs from 04/2014 were reviewed, she was advised to change her diet, labs will be repeated in 6 weeks Screening mammography 24 044298 Z12.31 Increased frequency of urination 191816537 R35.0 CT did not suggest nephrolith iasis and she states she was told in the ER that she did not have a UTI, she clearly has urinary frquency or possibly urgency. There is no dysuria and her back pain is clearly reproducib le. I am of the opinion that she is developing bladder instabilit y and possible urge incontinen ce. She states the ER provider told her she has a right renal cyst, I have reviewed the CT scan stone study with her and there is no mention of a cyst. I have explained to her that this may have been a preliminar y report and that the stone study has its limitation s. I have clearly explained the possible sequence of events and we will obtain an ultrasound of the renal tract. Lower abdominal pain 545 05393 R10.30 Pelvic pain, GLASS VIAL FILLER evaluation needed Low back pain 486318906 M54.5 [id number] MD Neftali Fang (Adult Med) [address] [place] [id number] 05/20/2015 16:15:16 05/20/2015 18:04:58 Disorder of lipid metabolism 203654712 E78.9 Labs as previously ordered. Increased frequency of urination 555813596 R35.0 US results were discussed. Screening for cancer 158 64265 Z12.9 MMG results were discussed, she was encouraged to make an appointmen t with her gynecologi st for a Pap smear. [id number] MD Neftali Fang (Adult Med) [address] [place] [phone] 06/04/2017 16:38:27 06/04/2017 18:05:45 Adult health examination 214207893 Z00.01 Migraine 09769692 G43.90 9 Stable on Amitriptyl ine, labs and follow up. Screening for malignant neoplasm of breast 216665853 Z12.31 Body mass index 30+ - obesity 624620512 Z68.39 [id number] MD Neftali Fang (Adult Med) [address] [place] [phone] 10/04/2017 16:40:16 10/04/2017 17:35:11 Impaired fasting glycemia 108324186 R73.01 Anemia 167797158 D64.9 Edema of l ower extremity 048990569 R60.0 No clear etiologyI will initiate a work up and she can use Furosemide PRN Ankle pain 524572793 M25 .322 [id number] MD Neftali Fang (Adult Med) [address] [place] [address] 0 10/21/2018 16:03:07 10/22/2018 08:56:32 General examination of patient 593451565 Z00.01 Calcaneal spur of left foot 1838000306 72553 M77.32 Screening for malignant neoplasm of breast 708508032 Z12.31 Spasm 92944043 R25.2 Migraine 38665237 G43.90 9 Stable on Amitriptyl ine. Increased frequency of urination 966386573 R35.0 . Paresthesi a of lower extremity 667302248 R20.2 [id number] MD Neftali Fang (Adult Med) [address] [place] [id number] 12/06/2018 16:32:38 12/09/2018 11:53:07 Influenza vaccination declined 195228332 Z28.21 Impaired f asting glycemia 357289663 R73.01 Discussed Disorder o f lipid metabolism 633554851 E78.9 Labs as previously ordered. Anemia 934746555 D64.9 Possibly related to her heavy cycles Non-neoplastic nevus 195 590435 I78.1 Skin tag 891927493 L91.8 Body mass index 30+ - obesity 779829232 Z68.39 [id number] MD Neftali Fang (Adult Med) [address] [place] [id number] 03/14/2019 15:39:57 03/17/2019 13:39:01 Diverticulosis of colon without diverticulitis 431935930 K57.30 Imaging re sult abnormal 632635857 R93.89 There appears to be a L. Thyroid nodule on the CT scan of [facility] chest Right inguinal hernia 23 9368651 K40.90 Fat containing Indirect RIH Uterine leiomyoma 842672 05 D25.9 Chronic anemia 461412454 D64.9 On iron Blood in urine 98601681 R31.9 Nephrocalcinosis 8929957 2 N29 [id number] MD Neftali Fang (Adult Med) [address] [place] [address] 0 05/16/2019 15:30:13 05/19/2019 10:21:09 Idiopathic peripheral neuropathy 97406389 G60.9 The initial impression was that this was meralgia parestheti ca, she however feels that it only started after her recent Hysterosco py. I am not certain that there is a clear relationsh ip.EMG/NCS Trial of Gabapentin , side effects were discussed [id number] MD Neftali Fang (Adult Med) [address] [place] [address]135[address]480 0 09/02/2019 14:18:39 09/04/2019 08:03:23 Urinary symptoms 451496144 R39.9 [id number] MD Neftali Fang (Adult Med) [address] [place] [address] 89553-367 0 10/28/2019 16:00:29 10/29/2019 23:13:19 Mass of right breast 8000562639 6430052 N63.10 [id number] MD Neftali Fang (Adult Med) [address] [place] [address]19-675 0 11/12/2019 16:05:57 11/14/2019 08:22:40 Mass of right breast 9396372737 4324884 N63.10 NL USMMG NLMonthly SBE I have reassured her and I have reviewed the MMG and breast US reports with her. I am of the opinion that she just has fibrocysti c breast disease, she appears concerned and in view of this I will have her seen by the surgeon. [id number] MD Neftali Fang (Adult Med) [address] [place] [address] 68837-637 0 02/24/2020 08:16:54 02/25/2020 09:21:43 Cough 83483246 R05 Allergy?, Asthma? Infection? Asthmatic bronchitis 405 724761 J45.909 Atelectasis 84726934 J98 .11 Discussed Increased frequency of urination 740409267 R35.0 . Medication monitoring 39 1197072 Z51.81 [id number] MD Neftali Fang (Adult Med) [address] [place] [address]61-210 0 03/16/2020 07:49:19 03/17/2020 08:53:08 Cough 76659298 R05 Allergy?, Asthma? Infection. She has been prescribed antibiotic s, a steroid inhaler and Montelukas t. She does not seem to be any better.Rep eat CXR Constipation 85915667 K5 9.00 Conservati ve management for nowColonos copy if she does not continue to improve. [id number] SHARMAINE ARNOLD NP [facility] [place] [address] 03/29/2020 11:11:51 03/30/2020 16:39:27 Chronic cough 22704259 R05 Chest C w/o contrast, allergen and mary labs. Dyspnea 586186528 R06.00 PFT Obstructiv e sleep apnea syndrome 73809488 G47.33 snoring, daytime sleepiness , unrefreshe d sleep, nocturia and body habitus, would benefit from sleep study. Sleep hygiene discussed Pulmonary hypertension 79664006 I27.20 Echo [id number] MD Neftali Fang (Adult Med) [address] [place] [address]32-[address] 0 06/14/2020 15:35:32 06/14/2020 16:31:15 Constipation 27198754 K59.00 Conservati ve management for nowColonos copy if she does not continue to improve. Epigastric pain 14998848 R10.13 Immunization due 2452199 08 Z28.3 Edema of l ower extremity 284267202 R60.0 No clear etiology I will check her TTE and she can use Furosemide PRN Pulmonary arterial hypertension 27537213 I27.21 Discussed TTE is pending [id number] SHARMAINE ARNOLD NP [facility] ts [address] [place] [address] 07/05/2020 10:21:41 07/05/2020 15:15:47 Cough 09657121 R05 Cough has resolved Obstructiv e sleep apnea syndrome 18145552 G47.33 Sleep apnea test 06/10/20: AHI 2.9/hr, lowest O2 88%. polysomnog alondra pending, possible false negative home sleep study. In center sleep lab scheduled for 06/25/20 Sleep hygiene discussed Pulmonary hypertension 68342687 I27.20 Echo 06/14/20: EF 69%, RVSP 32 mm hg Asymptomat ic . She has began exercising and changed diet, weight loss of 20 lbs since initial visit 03/2020. PSG pending, repeat Echo in 1 year. Body mass index 30+ - obesity 613161672 Z68.35 Encouraged -Choosing low-fat, low-calori e foods -Eating smaller portions -Drinking water instead of sugary drinks -Being physically active She has lost 20 lbs since initial visit 03/2020. Diet modificati on and daily exercise. Indigestion 102107462 K3 0 -Educated pt on importance of dietary modificati ons: Raise the head of the bed, avoid acid-reflu x inducing foods, avoid late meals. [id number] MD Neftali Fang (Adult Med) [address] [place] [address] 07/05/2020 16:01:58 07/06/2020 10:47:19 Pulmonary arterial hypertension 00549419 I27.21 Her TTE results were discussed Steatosis of liver 1007 K76.0 Weight loss GI Constipation 07215057 K5 9.00 Continue Conservati ve management for now Colonoscop y GI Fiber Miralax PRN Unexplaine d weight loss 669408070 R63.4 MMG normal 11/2019 Pap 04/2020 NL labs to date CT scan and abdominal US do not explain her weight loss Labs GI Abdominal pain 62246009 R10.9 CT and US do not explain her pain, the possible non obstructiv e renal stones are also on the right [id number] SHARMAINE ARNOLD NP [facility] ts [address] [place] [address] 10/11/2020 12:06:21 10/12/2020 08:08:09 Cough 93400659 R05 CoughPFTs completed at [facility], will request records . Possible reactive airway Pulmonary hypertension 68912361 I27.20 Echo 06/14/20: EF 69%, RVSP 32 mm hg Asymptomat ic . Exercising , 50 lbs weight loss since initial visit 03/2020. Repeat Echo in 1 year.Liam s CP/pressur e, inability to exercise, low BP, fatigue, or dizziness Body mass index 30+ - obesity 852694619 Z68.35 Encouraged -Choosing low-fat, low-calori e foods -Eating smaller portions -Drinking water instead of sugary drinks -Being physically active She has lost 50 lbs since initial visit 03/2020. Diet modificati on and daily exercise. Indigestion 859657627 K3 0 -Educated pt on importance of dietary modificati ons: Raise the head of the bed, avoid acid-reflu x inducing foods, avoid late meals. [id number] Mani Park MD [facility] [address] [place] [address] [address] [place] [address] 04/18/2022 16:59:28 04/19/2022 12:11:06 Depression screening 584014884 Z13.31 Mild inter mittent asthma 064673645 J45.20 condition chroicn adn at goal continue the inhalers Chronic insomnia 8282902 04 F51.04 condion chroinc adn at goal continue the elavil Iron defic iency anemia 52675499 D50.9 condition chronic and at goal continue the iron bid Gastroesop hageal reflux disease without esophagitis 738758762 K21.9 conditon chroinc and at goal continue hte protonix Hypercholesterolemia 136 25504 E78.00 conditoin [email or web address] Impacted c erumen of bilateral ears 0514169934 869802 H61.23 condition acute. clean bilateral ears. the bilateral external auditory canals are irrigated with normal saline and currette is used to remove the cerumen boluses intact. [id number] Mani Park MD [facility] [address] [facility] [address] [place] [address] 08/17/2022 10:51:19 08/18/2022 13:37:09 Tear of meniscus of knee 572561308 S83.207A conditon chronic with exacerbati on refer to dr joe duvall. order xray left knee at [email or web address] order tramadol 50 mg tid Chronic insomnia 8231183 04 F51.04 condion chroinc adn at goal continue the elavil Gastroesop hageal reflux disease without esophagitis 878893238 K21.9 conditon chroinc and at goal continue hte protonix Hypercholesterolemia 136 39207 E78.00 conditoin chroinc and not at [place] continue low fat diet. continue the atorvastat in Mild inter mittent asthma 784464854 J45.20 condition chroicn adn at goal continue the inhalers Constipation 36952228 K5 9.00 condition chroinc adn at goal ocntinue karl stool softeners. Iron defic iency anemia 04208466 D50.9 condition chronic and at goal continue the iron bid Morbid obesity 424747377 E66.01 condiotn chroinc adn not at goal continue low fat diet. [id number] Cathy Marshall RN [facility] [address] [facility] [address] [place] [address] 11/29/2022 16:22:40 12/04/2022 12:28:23 Chronic insomnia 367387711 F51.04 condion chroinc adn at goal continue the elavil Constipation 19415859 K5 9.00 condition chroinc adn at goal ocntinue karl stool softeners. Gastroesop hageal reflux disease without esophagitis 922031862 K21.9 conditon chroinc and at goal continue hte protonix Hypercholesterolemia 136 92536 E78.00 conditoin chroinc and not at [place] continue low fat diet. continue the atorvastat in Migraine 47131325 G43.90 9 conditoin chronic and at goal continue the excedrin migraine Mild inter mittent asthma 631946929 J45.20 condition chroicn adn at goal refill hte albuterol Pain of left heel 447375 7977 457260 M79.672 condition chroin cadn not at goal refer to dr brown and get heel cups Obesity 663655449 E66.9 condition chroicn adn not at goal continue the low fat diet. [id number] Mani Park MD [facility] [address] [place] [address] 02/28/2023 15:53:23 03/01/2023 12:26:13 Gastroesophageal reflux disease without esophagitis 132898779 K21.9 conditon chroinc and not at goal refill hte protonix Chronic insomnia 0552318 04 F51.04 condion chroinc adn at goal continue the elavil Constipation 47188481 K5 9.00 condition chroinc adn at goal ocntinue karl stool softeners. Hypercholesterolemia 136 41511 E78.00 conditoin chroinc and not at [place] continue low fat diet. continue the atorvastat in Migraine 19883661 G43.90 9 conditoin chronic and at goal continue the excedrin migraine Impacted c erumen of bilateral ears 1798092062 354897 H61.23 condition acute. clean bilateral ears. the bilateral external auditory canals are irrigated with normal saline and currette is used to remove the cerumen boluses intact. Cough 86525098 R05.9 condition chronic nad not at goal use the albuterol inhaler. [id number] Mani Park MD [facility] [address] [place] [address] 04/04/2023 16:27:11 04/05/2023 13:44:38 Chronic insomnia 681656977 F51.04 condion chroinc adn at goal continue the elavil Constipation 49514732 K5 9.00 condition chroinc adn at goal ocntinue karl stool softeners. Gastroesop hageal reflux disease without esophagitis 253388579 K21.9 conditon chroinc and not at goal continue hte protonix Hypercholesterolemia 136 77514 E78.00 conditoin chroinc and not at [place] continue low fat diet. continue the atorvastat in Iron defic iency anemia 31525325 D50.9 condition chronic and at goal continue the iron bid Mild inter mittent asthma 374093188 J45.20 condition chroicn adn at goal refill hte albuterol Pain of le ft knee joint 1872486339 01818 M25.562 condition chroinc and not at goal injection hte left knee is prepped and draped in a sterile fashion 1.5 cc of kenalog is mixed with 1.5 cc of lidocaine and the left knee is injected from a lateral approach. [id number] [facility] [address] [facility] [address] [place] [address] 08/03/2023 16:48:47 08/06/2023 11:47:21 Swelling of lower leg 109463272 R22.40 condition acute stat venous doppler left lower extremity take asa per day Chronic insomnia 3588635 04 F51.04 condion chroinc adn at goal continue the elavil Gastroesop hageal reflux disease without esophagitis 879860058 K21.9 conditon chroinc and not at goal continue hte protonix Migraine 17518258 G43.90 9 conditoin chronic and at goal continue the excedrin migraine Mild inter mittent asthma 017975527 J45.20 condition chroicn adn at goal refill hte albuterol Morbid obesity 930681643 E66.01 condiotn chroinc adn not at goal continue low fat diet. Hypercholesterolemia 136 75786 E78.00 conditoin chroinc and not at [place] continue low fat diet. continue the atorvastat in [id number] Mani Park MD [facility] [address] [facility] [address] [place] [address] 03/19/2024 12:27:00 03/21/2024 09:41:59 Traumatic hematoma 919904742 T14.8XXA conditon acute left leg will heel with time Mild inter mittent asthma 773812086 J45.20 condition chroicn adn at goal refill hte albuterol Obesity 328558794 E66.9 condition chroicn adn not at goal continue the low fat diet. Impacted c erumen of bilateral ears 4819027431 142979 H61.23 condition acute. clean bilateral ears. the bilateral external auditory canals are irrigated with normal saline and currette is used to remove the cerumen boluses intact. Migraine 88200752 G43.90 9 conditoin chronic and at goal continue the excedrin migraine order cbc Gastroesop hageal reflux disease without esophagitis 617808153 K21.9 conditon chroinc and not at goal continue hte protonix Constipation 38274091 K5 9.00 condition chroinc adn at goal ocntinue karl stool softeners. Chronic insomnia 2543267 04 F51.04 condion chroinc adn not at goal continue the elavil Hypercholesterolemia 136 21072 E78.00 conditoin chroinc and not at [place] continue low fat diet. continue the atorvastat in order lipid panel, cmp Iron defic iency anemia 80574441 D50.9 condition chronic and at goal continue the iron bid order iron panel Screening mammography of bilateral breasts 3547974971 14051 Z12.31 order mammo Health Concerns Section Related Observation LastModified by Organization Detai ls LastModified Time None Recorded Concern Status LastModified by Organization Details LastModified Time None Recorded Advance Directives Directive N: Payers Encounter Date Sequence Insurance Name Policy Number Policy Schmidt Covered Member ID Schmidt Member ID Guarantor Name 11/29/2022 1 [employer] [id number] Chekita L Pointer [id number] Chekita L Pointer 11/29/2022 2 [facility] (MEDICAID REPLACEMENT - HMO) [id number] Chekita L Pointer [id number] Chekita L Pointer 02/28/2023 1 [employer] [id number] Chekita L Pointer [id number] Chekita L Pointer 02/28/2023 2 [place] [facility] (MEDICAID REPLACEMENT - HMO) [id number] Chekita L Pointer [id number] Chekita L Pointer 04/04/2023 1 [employer] [id number] Chekita L Pointer [id number] Chekita L Pointer 04/04/2023 2 [facility] (MEDICAID REPLACEMENT - HMO) [id number] Chekita L Pointer [id number] Chekita L Pointer 08/03/2023 1 [employer] [id number] Chekita L Pointer [id number] Chekita L Pointer 08/03/2023 2 [place] [facility] (MEDICAID REPLACEMENT - HMO) [id number] Chekita L Pointer [id number] Chekita L Pointer 03/19/2024 1 [employer] [id number] Chekita L Pointer [id number] Chekita L Pointer Notes Date Note Type Note Provider Name and Address Organization Details Recorded Time 11/29/2022 text/html returns to the office for repeat evaluation staets that the left knee pain is due to cartilage tear. has been seen by ortho. the insomnia is under control and the constipatoin is udner control the gerd is under control and the chol the migraines and the asthma is under control has been watching her diet. has left heel pain Cathy Marshall RN [facility] [place] [facility] [place] 12/06/2022 08:28:40 02/28/2023 text/html states the gerd is getting worse. the cough is stable. the constipatoin is under control the insomnia is under control the chol is under control Mani Park MD Attn: Accounting[address] [place], [address], [facility] 02/28/2023 17:34:02 04/04/2023 text/html states that the left knee pain is getting worse. states that insomnia is under control the chol is under control the asthma is under control the iron def anemia is under control the gerd is under control Mani Park MD Attn: [address]ing[address] [place], [address], [facility] - [facility] 04/04/2023 18:48:59 08/03/2023 text/html states that she has been having bilateral leg swelling left greater than right states that she has pain in the leg the oa in the right knee worse. the gerd is under control the asthma and the the migraines are under control Mani Park MD Attn: Accounting[address] [facility], [place], [address], [facility] - [place] 08/03/2023 18:01:38 03/19/2024 text/html states that he bumped the left leg and has a knot for the past month hte constipation is under contrl the insomnia is not under contrl the gerd is udner control the migraines and the asthma is under control has been watching her diet. pap and colo are utd Mani Park MD Attn: Accounting[address] [facility], [place], [address], [facility] - [place] 03/19/2024 20:02:09 OBGyn Episode No OBEpisode recorded.
--- OUTSIDE RECORDS SUMMARY | 2024-04-27 13:25 | XMS_ITS | Patient Health Record ---
Author Organization [facility] Address [address] [place] [address] Support Name Relationship Address Phone JUDITH KESSLER Guarantor Unknown [phone] Reason For Referral No Information Plan Of Treatment No Information
--- OUTSIDE RECORDS SUMMARY | 2024-04-27 13:25 | XMS_ITS | Clinical Summary ---
Author Organization [facility] Address [facility] [place] [address] Care Team Providers Care Energy Conservation Representative Name Role Phone Mani Park MD Primary Care Provider [phone] Allergies Active Allergy Reactions Criticality Noted Date Comments Diphenhydramine Hives,Unknown Medium 07/26/2020 Sulfa Antibiotics Hives,Itching,Nausea and Vomiting,Rash Low 12/17/2019 Medications albuterol sulfate HFA 108 (90 Base) MCG/ACT inhaler Inhale 2 puffs every 4 hours by inhalation route as needed. Active amitriptyline (ELAVIL) 25 MG tablet nightly as needed (migraines). Active Docusate Sodium 100 MG Tab Take 1 tablet by mouth daily. Active ferrous sulfate, 65 mg elemental, 325 (65 FE) MG tablet Take 1 tablet (325 mg total) by mouth 2 (two) times daily. Active fluticasone propionate (FLOVENT HFA) 44 MCG/ACT inhaler Inhale 1 puff into the lungs 2 (two) times daily. Active furosemide (LASIX) 20 MG tablet Take 1 tablet (20 mg total) by mouth as needed. Active pantoprazole EC (PROTONIX) 40 MG tablet Take 1 tablet (40 mg total) by mouth as needed. Active traMADol (ULTRAM) 50 MG tablet Take 1 tablet (50 mg total) by mouth every 6 (six) hours as needed for Pain. Active diclofenac sodium (VOLTAREN) 1 % gelIndications: Plantar fasciitis Apply 4 g topically 4 (four) times daily. 350 g 3 Active Family History Medical History Relation Comments No Known Problems Father No Known Problems Mother Relation Status Comments Father Mother Social History Tobacco Use Types Packs/Day Years Used Date Smoking Tobacco: Never Passive Smoke Exposure: Never Smokeless Tobacco: Never Tobacco Cessation:Counseling Given: No Comments:Never Smoked Alcohol Use Standard Drinks/Week Comments Yes 1.7 (1 standard drink = 0.6 oz p ure alcohol) Socially PHQ-2 Answer Date Recorded Patient Health Questionnaire-2 Score 0 10/25/2022 Comments No Sex and Gender Information Value Date Recorded Sex Assigned at Not on file Legal Sex Female 11:06 AM CDT Gender Identity Not on file Sexual Orientation Not on file Last Filed Vital Signs Vital Sign Reading Time Taken Comments Blood Pressure 124/93 10/25/2022 1:56 PM CDT Pulse 63 10/25/2022 1:56 PM CDT Temperature 36.1 C (97 F) 10/25/2022 1:56 PM CDT Respiratory Rate 18 10/25/2022 1:56 PM CDT Oxygen Saturation - - Inhaled Oxygen Concentration - - Weight 104.3 kg (230 lb) 10/25/2022 1:56 PM CDT Height 167.6 cm (5' 6 ) 10/25/2022 1:56 PM CDT Body Mass Index 37.12 10/25/2022 1:56 PM CDT Plan of Treatment Health Maintenance Due Date Last Done Comments Cervical Cancer Screening Pa p Smear (Age 30 to 64) Every 3 Years 1974 Colorectal Cancer Screening Colonoscopy (10 Years) 1974 Annual Physical 1977 Hepatitis C 1992 Hepatitis B Vaccines (1 of 3 - 19+ 3-dose series) 1993 Cervical Cancer Screening Pa p with HPV Testing (Age 30 to 64) Every 5 Years 2004 Cervical Cancer Screening with HPV 2004 Mammogram Screening 2014 DTaP, Tdap and Td Vaccines ( 2 - Td or Tdap) 08/15/2023 08/14/2013 PHQ-2 (Physician [place]) 10/26/2023 10/25/2022 COVID-19 Vaccine ( - 2023-2 5 season) 2023 Influenza Adult (#1) 2023 PHQ-2 (Physician [place]) 03/05/2024 10/25/2022 Meningococcal B Vaccine Aged Out No l onger eligible based on patient's age to complete this topic Meningococcal Vaccine Aged Out No eric dara eligible based on patient's age to complete this topic Pneumococcal Vaccine: Pediat rics (0 to 5 Years) and At-Risk Patients (6 to 64 Years) Aged Out No longer eligi ble based on patient's age to complete this topic RSV Immunizations Under 20 Months Aged Out No longer eligible based on patient's age to complete this topic Insurance [employer] Care Teams Energy Conservation Representative Relationship Specialty Start Date End Date Mani Park MD PCP - General FAMILY PRACTICE 08/17/22
--- OUTSIDE RECORDS SUMMARY | 2024-04-27 13:25 | XMS_ITS | Clinical Summary ---
Author Organization [facility] Address [address] [place] [address] Care Team Providers Care Quality Checker Name Role Phone Micah Lerma MD Primary Care Provider Source Comments [facility],non-owned Affiliates and Associated Physician Practices is amultiple site organization consisting of ambulatory clinics and hospital sitesin [place], [place], [place] and [place]. This disclosure is being madepursuant to the Care Everywhere program and may not contain all information available regarding this patient. Last updated 17.[facility] Allergies Active Allergy Reactions Criticality Noted Date [...] Noted Date Diagnosed Date Morbid obesity 07/05/2020 Family History Medical History Relation Name Comments Cancer - Prostate Father Relation Name Status Comments Father Social History Tobacco Use Types Packs/Day Years [...] PM CDT Pulse 91 04/30/2020 10:19 AM CHIEF CARDIOPULMONARY TECHNOLOGIST Temperature 36.8 C (98.2 F) 04/13/2020 11:15 AM CHIEF CARDIOPULMONARY TECHNOLOGIST Respiratory Rate 16 12/23/2019 1:51 PM CDT Oxygen Saturation 98% 04/13/2020 11:15 AM CHIEF CARDIOPULMONARY TECHNOLOGIST Inhaled Oxygen Concentration - - Weight 102.5 kg (226 lb) 07/16/2020 3:21 PM CDT Height 167.6 cm (5' 6 ) 07/16/2020 3:21 PM CDT Body Mass Index 36.48 07/16/2020 3:21 PM CDT Plan of Treatment Health Maintenance Due Date Last Done Comments COLOGUARD (AGES 45-75) - COL ON CA SCREENING 1974 COLON MONITORING 1974 COLONOSCOPY - COLON CA SCREENING 1974 CT COLONOGRAPHY - COLON CA SCREENING 1974 Colorectal Cancer Screening 1974 FIT - COLON CA SCREENING 1974 FLEX SIG - COLON CA SCREENING 1974 LIPID TESTING 1974 MAMMOGRAM 1974 HIV SCREENING 1989 HEPATITIS C SCREENING 09/12/1992 DTAP/TDAP/TD VACCINES (1 - Tdap) 1993 HEPATITIS B VACCINE (1 of 3 - 19+ 3-dose series) 1993 SCREENING FOR DIABETES 12/17/2019 COVID-19 VACCINE (1 - 2023-2 5 season) 2023 INFLUENZA VACCINE (#1) 2023 DEPRESSION SCREENING 03/05/2024 ZOSTER VACCINE (1 of 2) 2024 PAP with HPV 04/30/2025 04/30/2020 HIB VACCINE Aged Out No longer eligi ble based on patient's age to complete this topic HPV VACCINE Aged Out No longer eligi ble based on patient's age to complete this topic MENINGOCOCCAL (Group B) VACCINE Aged Out No longer eligible based on patient's age to complete this topic MENINGOCOCCAL VACCINE Aged Out No eric dara eligible based on patient's age to complete this topic PNEUMOCOCCAL VACCINE Aged Out No long er eligible based on patient's age to complete this topic Procedures Procedure Name Priority Date/Time Associated Diagnosis Comments HPV DETECTION HIGH RISK MICHAELLE Routine 04/30/2020 3:40 PM CHIEF CARDIOPULMONARY TECHNOLOGIST Well woman exam from Last 3 Months or Most Recently Relevant to Health Maintenance Results * HPV DETECTION HIGH RISK MICHAELLE (04/30/2020 3:40 PM CHIEF CARDIOPULMONARY TECHNOLOGIST) High Risk Human Papilloma Result Not detected Not detected 05/05/2020 4:35 PM CHIEF CARDIOPULMONARY TECHNOLOGIST [facility] High Risk Human Papilloma Interp 05/05/2020 4:35 PM CHIEF CARDIOPULMONARY TECHNOLOGIST [facility] Comment:High Risk Human Fransisco lloma Virus was Not Detected. Pathology/Cytolo gy MISCELLANEOUS SAMPLES / Unknown 04/30/2020 3:40 PM CHIEF CARDIOPULMONARY TECHNOLOGIST 05/04/2020 11:48 AM CHIEF CARDIOPULMONARY TECHNOLOGIST Narrative [facility] - 05/05/2020 4:35 PM CHIEF CARDIOPULMONARY TECHNOLOGIST Nucleic acid isolated from the specimen was [...] Honeycutt MD LAB - MICROB IOLOGY ORDERABLES [facility] [address] [phone] from Last 3 Months or Most Recently Relevant to Health Maintenance Care Teams Quality Checker Relationship Specialty Start Date End Date Micah Lerma MD [address] [place] [address] [phone] PCP - General Internal Medicine 05/24/20
--- OUTSIDE RECORDS SUMMARY | 2024-04-27 13:25 | XMS_ITS | Patient Health Summary ---
Author Organization [facility] Address [address] [facility] [place] [address] Care Team Providers Care Treasury Consultant Name Role Phone Micah Lerma MD Primary Care Provider Note from [facility],non-owned Affiliates and Associated Physician Practices is amultiple site organization consisting of ambulatory clinics and hospital sitesin [place] and [place]. This disclosure is being madepursuant to the Care Everywhere program and may not contain all information available regarding this patient. Last updated 17.[facility] Allergies * Sulfa Drugs(Itching) Medications * Be aware that medications may not be up to date on this document. Alwaysverify current medications with the patient. * ferrous sulfate 325 (65 FE) MG tablet every 24 hours * amitriptyline (ELAVIL) 25 MG tablet Take 25 mg by mouth as needed * docusate sodium (STOOL SOFTENER) 100 MG capsule Stool Softener * metroNIDAZOLE vaginal (METROGEL - VAGINAL) 0.75 % vaginal gel(Started 07/30/2020) Insert 1 applicator into the vagina at bedtime for 5 nights Active Problems Problem Noted Date Diagnosed Date [...] PM CDT Pulse 91 04/30/2020 10:19 AM OPTIONS TRADER Temperature 36.8 C (98.2 F) 04/13/2020 11:15 AM OPTIONS TRADER Respiratory Rate 16 12/23/2019 1:51 PM CDT Oxygen Saturation 98% 04/13/2020 11:15 AM OPTIONS TRADER Inhaled Oxygen Concentration - - Weight 102.5 kg (226 lb) 07/16/2020 3:21 PM CDT Height 167.6 cm (5' 6 ) 07/16/2020 3:21 PM CDT Body Mass Index 36.48 07/16/2020 3:21 PM CDT Procedures * WET PREP - POINT OF CARE (AMB) SLU(Performed 07/16/2020) Performed for Bacterial vaginosis * MT SONO EXAM, TRANSVAGINAL(Performed 06/03/2020) Performed for Fibroid * MT US PELVIC NONOB REAL-TIME IMG COMPLETE(Performed 06/03/2020) Performed for Fibroid * IMAGING/RADIOLOGY/XRAY RESULTS ORDER(Performed 06/03/2020) * PAP IMAGE-GUIDED W HPV(Performed 04/30/2020) Performed for Well woman exam * HPV DETECTION HIGH RISK MICHAELLE(Performed 04/30/2020) Performed for Well woman exam * MRI BRAIN WWO CONTRAST(Performed 03/08/2020) Performed for Paresthesia of left upper and lower extremity * CREATININE - POCT INTERFACED(Performed 03/08/2020) Results * WET PREP - POINT OF CARE (AMB) SLU (07/16/2020) pH Wet Prep 5 Yeast Wet Prep neg Trichomonas Wet Prep Absent Bacteria Wet Prep clue cell Whiff Test BODY FLUID SPECIMEN / Unknown 07/16/2020 Yanira Yusuf MD LAB - POINT OF CARE ORDERABLES * MT US PELVIC NONOB REAL-TIME IMG COMPLETE, MT SONO EXAM, TRANSVAGINAL (06/03/2020 2:44 PM CDT) Narrative Mar - 06/03/2020 2:44 PM CDT , 06/03/2020 2:45 PM Documentation in [employer]. Estela Honeycutt MD PROCEDURE/MT NOR SURGICAL ORDERABLES * IMAGING RADIOLOGY XRAY RESULTS ORDER (06/03/2020) Anatomical Region Laterality Modality Other Narrative 06/03/2020 Ordered by an unspecified provider. Scanned Document IMAGING * HPV DETECTION HIGH RISK MICHAELLE (04/30/2020 3:40 PM OPTIONS TRADER) High Risk Human Papilloma Result Not detected Not detected 05/05/2020 4:35 PM OPTIONS TRADER [facility] High Risk Human Papilloma Interp 05/05/2020 4:35 PM OPTIONS TRADER [facility] Comment:High Risk Human Fransisco lloma Virus was Not Detected. Pathology/Cytolo gy MISCELLANEOUS SAMPLES / Unknown 04/30/2020 3:40 PM OPTIONS TRADER 05/04/2020 11:48 AM OPTIONS TRADER Narrative [facility] - 05/05/2020 4:35 PM OPTIONS TRADER Nucleic acid isolated from the specimen was [...] Honeycutt MD LAB - MICROB IOLOGY ORDERABLES [facility] [address] [phone] * PAP IMAGE-GUIDED W HPV (04/30/2020 3:40 PM OPTIONS TRADER) Case Report Gynecologic Cytology Report Case: [id number] Authorizing Provider: Estela Honeycutt, Collected: 04/30/2020 03:40 PM Ordering Location: [facility] Obstetrics Received: 05/04/2020 11:48 AM [facility] Screen: Kp Kamara Specimen: THINPREP - NON IMAGE GUIDED, Cervix/Endocervix 05/06/2020 10:51 AM [facility]IONS TRADER [facility] LMP n/a 05/06/2020 10:51 AM [facility] TR[facility]ER [facility] Menstrual Status None Applicable 06/2020 10:51 AM [facility] Specimen Adequacy Satisfactory for evaluation, endocervical/trans formation zone component present. 05/06/2020 10:51 AM [facility] Categorization Negative for intraepithelial lesion or malignancy. 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 05/06/2020 10:51 AM [facility] Pap Footnote The Pap Smear is a screening test. False positive and false negative results occur. Negative results do not preclude abnormalities, thus clinical correlation is required. This specimen was evaluated by the ThinPrep Imaging System along with an additional manual rescreening by a manager special events and/or pathologist. 05/06/2020 10:51 AM [facility] Embedded Images 10:51 AM [facility] Pathology/Cytolo gy MISCELLANEOUS SAMPLES / Unknown 04/30/2020 3:40 PM OPTIONS TRADER 05/04/2020 11:48 AM OPTIONS TRADER Estela Honeycutt MD LAB - PATHOL OGY/CYTOLOGY ORDERABLES [facility] [address] [place] [address], [facility] [phone] * MRI BRAIN WWO CONTRAST (03/08/2020 2:56 PM OPTIONS TRADER) Anatomical Region Laterality Modality Head Magnetic Resonan ce 03/08/2020 2:52 PM OPTIONS TRADER Impressions 03/08/2020 3:09 PM OPTIONS TRADER IMPRESSION: Normal MRI of the brain. Specifically, no evidence of demyelinating plaques. This report was electronically signed by REBECCA COSME on 03/08/2020 3:09 PM . Narrative 03/08/2020 3:09 PM OPTIONS TRADER Contrast enhanced MRI of brain CLINICAL INFORMATION: R20.2: Paresthesia of left upper and lower extremity TECHNIQUE: MRI of the brain was performed with and without intravenous contrast according to a demyelination protocol. 10 ml Gadavist was administered intravenously without adverse reaction. COMPARISON: None FINDINGS: The brain parenchyma is unremarkable. There is no acute infarct or MR evidence of hemorrhage. There is no intracranial mass or mass effect. There is no hydrocephalus or extra-axial fluid collection. Flow voids of major intracranial vessels are noted. There is no abnormal enhancement. The paranasal sinuses and mastoid air cells are clear. Procedure Note Rebecca Cosme MD - 03/08/2020 Contrast enhanced MRI of brain CLINICAL INFORMATION: R20.2: Paresthesia of left upper and lowerextremity TECHNIQUE: MRI of the brain was performed with and without intravenous contrast according to a demyelination protocol. 10 ml Gadavist was administered intravenously without adverse reaction. COMPARISON: None FINDINGS: The brain parenchyma is unremarkable. There is no acute infarct or MR evidence of hemorrhage. There is no intracranial mass or mass effect. There is no hydrocephalus or extra-axial fluid collection. Flow voids of major intracranial vessels are noted. There is no abnormal enhancement. The paranasal sinuses and mastoid air cells are clear. IMPRESSION: Normal MRI of the brain. Specifically, no evidence of demyelinating plaques. This report was electronically signed by REBECCA COSME on 03/08/2020 3:09 PM. Eloy Hopkins MD MR ORDERABLES * CREATININE - POCT INTERFACED (03/08/2020 1:58 PM OPTIONS TRADER) Creatinine POCT 0.62 0.30 - 1.30 mg/dL 03/08/2020 2:04 PM OPTIONS TRADER [facility] Comment:Range ok for MRI eGFR >60 >60 mL/min/1.7 3 m2 03/08/2020 2:04 PM OPTIONS TRADER [facility] Blood BLOOD SPECIMEN / Unknown 03/08/2020 1:58 PM OPTIONS TRADER 03/08/2020 2:04 PM OPTIONS TRADER Eloy Hopkins MD LAB - POINT OF CARE ORDERABLES Performing Organization Address City/State/[facility] Co de Phone Number [facility] [address] [place] [address], [facility] [phone] Care Teams Treasury Consultant Relationship Specialty [place] [address] [place] [address] [phone] PCP - General Internal Medicine 05/24/20
--- OUTSIDE RECORDS SUMMARY | 2024-04-27 13:26 | XMS_ITS | Referral Summary ---
Author Organization [facility] Address [address] [place] [address] Care Team Providers Care Magnetic Tester Name Role Phone Mani Park MD Primary Care Provider [phone] Encounters Date Type Department Care Team Description 03/03/[address] [facility] Obstetrical Gynecology [facility] [address] [place] [address] Bill Hollins MD from Last 3 Months Allergies Active Allergy Reactions Criticality Noted Date [...] 03/14/2019 Calcaneal spur of left foot 10/21/2018 Immunizations Immunization Administration Dates Next Due Influenza, Unspecified 03/20/2023(Deferred: Carrie ent Refused) Tdap 08/14/2013 Social History Tobacco Use Types Packs/Day Years [...] on file Legal Sex Female 4:26 AM [employer]ED [employer] DE[employer]ER Gender Identity Not on file Sexual Orientation Not on file Last Filed Vital Signs Vital Sign Reading Time Taken Comments Blood Pressure 130/80 01/09/2024 1:36 PM PRINTED [employer]EL[employer] DEBUR[employer]ER Pulse 90 03/20/2023 9:47 AM PRINTED [employer]ARD PANEL[employer] DEBUR[employer]ER Temperature 36.4 C (97.5 F) 03/20/2023 9:47 AM PRINTED [employer] BOARD PANELS DEBURRER Respiratory Rate 18 03/20/2023 9:47 AM PRINTED CIRCUIT BOARD PANELS DEBURRER Oxygen Saturation 98% 03/20/2023 9:47 AM PRINTED CIRCUIT BOARD PANELS DEBURRER Inhaled Oxygen Concentration - - Weight 107 kg (236 lb) 01/09/2024 1:36 PM PRINTED CIRCUIT BOARD PANELS DEBURRER Height 167.6 cm (5' 6 ) 01/09/2024 1:36 PM PRINTED CIRCUIT BOARD PANELS DEBURRER Body Mass Index 38.09 01/09/2024 1:36 PM PRINTED [employer]ARD PANEL[employer] DEBUR[employer]ER Plan of Treatment Not on file Procedures Procedure Name Priority Date/Time Associated Diagnosis Comments HIGH RISK HPV DNA DETECTION WITH GENOTYPING Routine 08/22/2023 10:52 AM CDT Screening for cervical cancer Well woman exam DIAGNOSTIC MAMMOGRAM BILATERAL W EDGARDO Schedule Routine, Read Routine (OP Routine) 03/14/2023 8:40 AM PRINTED CIRCUIT BOARD PANELS DEBURRER Breast pain in female COLONOSCOPY Routine 09/13/2020 from Last 3 Months or Most Recently Relevant to Health Maintenance Results * High Risk HPV DNA Detection with Genotyping (Molecular component) (08/22/2023 10:52 AM CDT) HPV HR 16 Not Detected Not Detected [facility] Comment:Testing performed by : [facility], [address] [place]., [address] HPV HR 18 Not Detected Not Detected [facility] Comment:Testing performed by : [facility], [address] [place]., [address] HPV HR Non 16/18 Not Detected Not [...] this test have been verified by the [facility] Molecular Infectious Disease laboratory. Correlate with separately reported cytology results, as applicable. Interpretive data last revised 22 Testing performed by: [facility], [address] [place]., [address] Endocervical 08/22/2023 10:5 2 AM CDT 08/22/2023 5:30 PM CDT Narrative [facility] - 08/23/2023 2:48 AM CDT Clinical history and diagnosis->screen Testing type->Screening Last menstrual period (date if known)->08/19/23 Bill Hollins MD LAB BODY FLUIDS AND STO OLS ORDERABLES Final Result [facility] [address] [facility] [place] [address] [facility] * Diagnostic Mammogram Bilateral W Edgardo (03/14/2023 8:40 AM PRINTED [employer]ARD PANEL[employer] DEBURRER) Anatomical Region Laterality Modality Breast Bilateral Mammography 03/14/2023 9:58 AM PRINTED [employer] DEBUR[employer]ER Impressions 03/14/2023 10:27 AM PR[employer]ED [employer] DE[employer]ER Oval masses in the middle outer central [...] Xochitl Simmons M.D. Narrative 03/14/2023 10:27 AM PRINTED [employer] PANEL[employer] DE[employer]ER EXAMINATION: BILATERAL DIGITAL DIAGNOSTIC MAMMOGRAM INCLUDING CAD [...] Most Recently Relevant to Health Maintenance Insurance [facility] Address: [facility] [id number] [place] [address] [facility] [employer] Care Teams Magnetic Tester Relationship Specialty Start Date End Date Mani Park MD PCP - General Family Medicine 08/06/23
[2024-04-27 13:34] VITALS: BP 154/87; PULSE 77; RESP 14; TEMP 36.6; O2SAT 100
--- NOTE | 2024-04-27 15:04 | ED_ITS ---
HPI - Abdominal Pain General Chief Complaint: Abdominal Pain <Rosemary Bowling PA-C - Last Filed: 04/28/24 01:26> Stated Complaint: L flank pain <Rosemary Bowling PA-C - Last Filed: 04/28/24 01:26> Time Seen by Provider: 04/27/24 15:04 <Rosemary Bowling PA-C - Last Filed: 04/28/24 01:26> Focused HPI: This is a 48 year old female that presents to the ER for left sided flank pain. She came from urgent care, they recommended she get a CT scan to see if she has kidney stones. She had red blood cells in her urine there. The pain started about a week ago. No previous history of kidney stones. Reports hematuria. No recent injuries. Denies fever, vomiting, dysuria. GENERAL: Well-appearing, well-nourished, and in no acute distress. HEAD: Normocephalic, atraumatic. CHEST: Clear to auscultation. ?No respiratory distress. HEART: Regular rate and rhythm.? NEURO: ?Alert and oriented x3. Patient screened in triage and initial orders placed.? ?Additional care and disposition to be based upon?diagnostic testing and treatment. <Rosemary Bowling PA-C - Last Filed: 04/28/24 01:26> History of Present Illness HPI narrative: Patient 48-year-old female who presents emergency department chief complaint of flank pain. Patient was seen in urgent care noticed that she had blood in her urine on urinalysis and sent the patient to the emergency department for evaluation of possible kidney stone. The patient states the pain is manageable at this time reports she has slight nausea the patient reports no prior history of kidney stones <Abrahan [place] MD - Last Filed: 04/27/24 17:41> Related Data Allergies/Adverse Reactions: Allergies Allergy/AdvReac Type Severity Reaction Status Date / Time diphenhydramine (From Allergy Intermediate Rash Verified 04/27/24 11:57 Benadryl) Sulfa (Sulfonamide Allergy Intermediate Rash Verified 04/27/24 11:57 Antibiotics) <Rosemary Bowling PA-C - Last Filed: 04/28/24 01:26> Review of Systems 2 Review of Systems: A 10 system review of systems was completed on the patient and is negative except for what is stated in the HPI. Nursing and ancillary documentation was reviewed. <Abrahan [place] MD - Last Filed: 04/27/24 17:41> PMFSH Past Medical History Medical History: Medical History Bronchitis Anemia Menorrhagia with regular cycle Fibroids Migraine <Rosemary Bowling PA-C - Last Filed: 04/28/24 01:26> Surgical History Surgical History: Surgical History H/O: x2 <Rosemary Bowling PA-C - Last Filed: 04/28/24 01:26> Family History Family History: Family History Other Diabetes mellitus Hypertension <Rosemary Bowling PA-C - Last Filed: 04/28/24 01:26> Social History Social History: Social History Smoking status: Never smoker Substance use: never Gender identity (if verbalized by the patient): Female <Rosemary Bowling PA-C - Last Filed: 04/28/24 01:26> Exam 2 Narrative: GENERAL: Well-appearing, well-nourished, and in no acute distress. HEAD: Normocephalic, atraumatic. EYES: PERRLA and EOMI. ENT: Nares clear, no rhinorrhea or epistaxis. Mucous membranes moist. NECK: Supple. CHEST: Clear to auscultation. No respiratory distress. HEART: Regular rate and rhythm. No murmur heard. Normal peripheral pulses. ABDOMEN: Soft, nontender, nondistended, normal active bowel sounds. EXTREMITIES: Normal range of motion. No edema. SKIN: Warm, dry, no rash. NEURO: No focal deficits. Alert and oriented x3. PSYCH: Normal mood and affect. <Abrahan [place] MD - Last Filed: 04/27/24 17:41> Course Vital Signs Vital signs: Vital Signs Temperature 97.9 F 04/27/24 13:34 Pulse Rate 77 04/27/24 13:34 Respiratory Rate 14 04/27/24 13:34 Blood Pressure 154/87 H 04/27/24 13:34 Pulse Oximetry 100 04/27/24 13:34 Oxygen Delivery Room Air 04/27/24 13:34 Temperature 97.8 F 04/27/24 15:16 Pulse Rate 79 04/27/24 17:30 Respiratory Rate 16 04/27/24 17:30 Blood Pressure 151/99 H 04/27/24 17:30 Pulse Oximetry 99 04/27/24 17:30 Oxygen Delivery Room Air 04/27/24 13:34 <Rosemary Bowling PA-C - Last Filed: 04/28/24 01:26> Vital Signs Temperature 97.9 F 04/27/24 13:34 Pulse Rate 77 04/27/24 13:34 Respiratory Rate 14 04/27/24 13:34 Blood Pressure 154/87 H 04/27/24 13:34 Pulse Oximetry 100 04/27/24 13:34 Oxygen Delivery Room Air 04/27/24 13:34 Temperature 97.8 F 04/27/24 15:16 Pulse Rate 79 04/27/24 17:30 Respiratory Rate 16 04/27/24 17:30 Blood Pressure 151/99 H 04/27/24 17:30 Pulse Oximetry 99 04/27/24 17:30 Oxygen Delivery Room Air 04/27/24 13:34 <Abrahan [place] MD - Last Filed: 04/27/24 17:41> MDM - Abdominal Pain MDM Narrative Medical decision making narrative: Differential diagnosis includes ureterolithiasis, pyelonephritis, UTI, Laboratory studies were obtained showed a white count of 10.8 urinalysis showed 51-100 red blood cells 21-50 white blood cells 1+ leukocyte esterase and 3+ bacteria CT scan showed no evidence of obstructive ureterolithiasis, there was evidence of cystitis <Abrahan [place] MD - Last Filed: 04/27/24 17:41> Lab Data Result diagrams: 04/27/24 15:26 04/27/24 15:26 <Rosemary Bowling PA-C - Last Filed: 04/28/24 01:26> Labs: Lab Results 04/27/24 04/27/24 04/27/24 Range/Units 15:26 15:32 15:36 WBC 4.8 (4.5-10.0) K/mm3 RBC 4.65 (4.2-5.4) M/mm3 Hgb 11.9 L (12.0-15.0) g/dL Hct 38.4 (37.0-47.0) % MCV 82.6 (80-100) fl MCH 25.6 L (26-34) pg MCHC 31.0 L (32-36) g/dl RDW 15.3 H (11.5-14.5) % Plt Count 401 H (150-375) k/mm3 MPV 9.2 (7.4-10.4) fl Immature Gran % (Auto) 0.2 (0-0.5) % Neut % (Auto) 49.4 (45.5-73.1) % Lymph % (Auto) 37.3 (18.3-44.2) % [place] % (Auto) 9.8 H (2.6-8.5) % Eos % (Auto) 2.9 (0-4.4) % Baso % (Auto) 0.4 (0.2-1.2) % Lymph # (Auto) 1.79 (0.9-3.2) K/mm3 [place] # (Auto) 0.5 (0.1-0.6) K/mm3 Eos # (Auto) 0.1 (0-0.3) K/mm3 Baso # (Auto) 0.0 (0.0-0.1) K/mm3 Abs Immat Gran (auto) 0.01 (0.00-0.031) K/mm3 Absolute Neuts (auto) 2.4 (1.3-6.7) K/mm3 Absolute Nucleated RBC 0.000 (0.0-0.012) K/mm3 Nucleated RBC % 0.0 (0.0-0.2) % Sodium 139 (137-145) mmol/L Potassium 4.0 (3.4-5.0) mmol/L Chloride 106 (98-107) mmol/L Carbon Dioxide 24 (22-30) mmol/L Anion Gap 9 (4-12) mmol/L BUN 13 (7-17) mg/dL Creatinine 0.49 L (0.7-1.0) mg/dL Estim Creat Clear Calc 145 ml/min Estimated GFR > 60 (59 - ) Glucose 85 (65-110) mg/dL Calcium 9.4 (8.4-10.2) mg/dL Total Bilirubin 0.7 (0.2-1.3) mg/dL AST 23 (14-36) U/L ALT 16 (6-35) U/L Alkaline Phosphatase 79 (38-126) U/L Total Protein 8.0 (6.3-8.2) g/dL Albumin 4.2 (3.5-5.1) g/dL Lipase 55 (23-300) U/L Urine Color Yellow (Yellow) Urine Appearance Cloudy H (Clear) Urine pH 5.5 (5.0-9.0) Ur Specific [place] 1.025 (1.001-1.035) Urine Protein Trace (Negative) mg/dL Urine Glucose (UA) Negative (Negative) mg/dL Urine Ketones Negative (Negative) mg/dL Ur Blood (Man) 3+ H (Negative) Urine Nitrate Negative (Negative) Urine Bilirubin Negative (Negative) Urine Urobilinogen 0.2 (<2.0) mg/dL Leukocyte Esterase Rfl 1+ H (Negative) JUSTUS/UL Urine RBC 51-100 H (0-2) /hpf Urine WBC 21-50 H (0-3) /hpf Ur Squamous Epith Cells Few (Few) /hpf Urine Bacteria 3+ H /hpf Urine Casts 0-2 POC Urine HCG, Qual Negative (Negative) <Rosemary Bowling PA-C - Last Filed: 04/28/24 01:26> Lab Results 04/27/24 04/27/24 04/27/24 Range/Units 15:26 15:32 15:36 WBC 4.8 (4.5-10.0) K/mm3 RBC 4.65 (4.2-5.4) M/mm3 Hgb 11.9 L (12.0-15.0) g/dL Hct 38.4 (37.0-47.0) % MCV 82.6 (80-100) fl MCH 25.6 L (26-34) pg MCHC 31.0 L (32-36) g/dl RDW 15.3 H (11.5-14.5) % Plt Count 401 H (150-375) k/mm3 MPV 9.2 (7.4-10.4) fl Immature Gran % (Auto) 0.2 (0-0.5) % Neut % (Auto) 49.4 (45.5-73.1) % Lymph % (Auto) 37.3 (18.3-44.2) % [place] % (Auto) 9.8 H (2.6-8.5) % Eos % (Auto) 2.9 (0-4.4) % Baso % (Auto) 0.4 (0.2-1.2) % Lymph # (Auto) 1.79 (0.9-3.2) K/mm3 [place] # (Auto) 0.5 (0.1-0.6) K/mm3 Eos # (Auto) 0.1 (0-0.3) K/mm3 Baso # (Auto) 0.0 (0.0-0.1) K/mm3 Abs Immat Gran (auto) 0.01 (0.00-0.031) K/mm3 Absolute Neuts (auto) 2.4 (1.3-6.7) K/mm3 Absolute Nucleated RBC 0.000 (0.0-0.012) K/mm3 Nucleated RBC % 0.0 (0.0-0.2) % Sodium 139 (137-145) mmol/L Potassium 4.0 (3.4-5.0) mmol/L Chloride 106 (98-107) mmol/L Carbon Dioxide 24 (22-30) mmol/L Anion Gap 9 (4-12) mmol/L BUN 13 (7-17) mg/dL Creatinine 0.49 L (0.7-1.0) mg/dL Estim Creat Clear Calc 145 ml/min Estimated GFR > 60 (59 - ) Glucose 85 (65-110) mg/dL Calcium 9.4 (8.4-10.2) mg/dL Total Bilirubin 0.7 (0.2-1.3) mg/dL AST 23 (14-36) U/L ALT 16 (6-35) U/L Alkaline Phosphatase 79 (38-126) U/L Total Protein 8.0 (6.3-8.2) g/dL Albumin 4.2 (3.5-5.1) g/dL Lipase 55 (23-300) U/L Urine Color Yellow (Yellow) Urine Appearance Cloudy H (Clear) Urine pH 5.5 (5.0-9.0) Ur Specific [place] 1.025 (1.001-1.035) Urine Protein Trace (Negative) mg/dL Urine Glucose (UA) Negative (Negative) mg/dL Urine Ketones Negative (Negative) mg/dL Ur Blood (Man) 3+ H (Negative) Urine Nitrate Negative (Negative) Urine Bilirubin Negative (Negative) Urine Urobilinogen 0.2 (<2.0) mg/dL Leukocyte Esterase Rfl 1+ H (Negative) JUSTUS/UL Urine RBC 51-100 H (0-2) /hpf Urine WBC 21-50 H (0-3) /hpf Ur Squamous Epith Cells Few (Few) /hpf Urine Bacteria 3+ H /hpf Urine Casts 0-2 POC Urine HCG, Qual Negative (Negative) <Abrahan [place] MD - Last Filed: 04/27/24 17:41> Imaging Data Radiologist's impression: ITS Impressions Abdomen/Pelvis CT 04/27/24 17:17 IMPRESSION: Bladder decompression with significant surrounding inflammatory change for which cystitis is suspected. No obstructive uropathy. Likely fibroid uterus. <Rosemary Bowling PA-C - Last Filed: 04/28/24 01:26> ITS Impressions Abdomen/Pelvis CT 04/27/24 17:17 IMPRESSION: Bladder decompression with significant surrounding inflammatory change for which cystitis is suspected. No obstructive uropathy. Likely fibroid uterus. <Abrahan [place] MD - Last Filed: 04/27/24 17:41> Critical Care Time Critical Care Time Critical Care Time: No <Rosemary Bowling PA-C - Last Filed: 04/28/24 01:26> Discharge Plan Discharge Clinical Impression: Acute flank pain Urinary tract infection Qualifiers: Urinary tract infection type: acute pyelonephritis Qualified Code(s): N10 - Acute pyelonephritis <Rosemary Bowling PA-C - Last Filed: 04/28/24 01:26> Patient Disposition: Home, Self-Care <SHERRY Calderon Last Filed: 04/28/24 01:26> Condition: Stable <Rosemary Bowling PA-C - Last Filed: 04/28/24 01:26> Instructions: Antibiotic Form, Urinary Tract Infection in Women (ED), Kidney Infection (ED), Flank Pain (ED) <Rosemary Bowling PA-C - Last Filed: 04/28/24 01:26> Patient Language: Chadian <Rosemary Bowling PA-C - Last Filed: 04/28/24 01:26> Prescriptions: New cephalexin 500 mg capsule 500 mg PO Q8H 7 Days Qty: 21 0RF ondansetron 4 mg tablet,disintegrating 4 mg PO Q8H PRN (Reason: nausea and vomiting) Qty: 10 0RF <Rosemary Bowling PA-C - Last Filed: 04/28/24 01:26> Follow-up/Referrals: Xavier,Mani Gant MD [Primary Care Provider] - <Rosemary [place]ling PA-C - Last Filed: 04/28/24 01:26> Time of Disposition: 17:40 <Rosemary Bowling PA-C - Last Filed: 04/28/24 01:26> 17:40 <Abrahan [place] MD - Last Filed: 04/27/24 17:41>
[2024-04-27 15:16] VITALS: BP 163/103; PULSE 77; RESP 18; TEMP 36.6; O2SAT 98
[2024-04-27 15:31] LABS: Basophils Percent Auto 0.4 % (0.2-1.2); Eosinophils Absolute Auto 0.1 K/mm3 (0-0.3); Eosinophils Percent Auto 2.9 % (0-4.4); Hematocrit 38.4 % (37.0-47.0); Hemoglobin 11.9 g/dL (12.0-15.0); Immature Granulocyte Absolute 0.01 K/mm3 (0.00-0.031); Immature Granulocyte Percent A 0.2 % (0-0.5); Lymphocytes Absolute Auto 1.79 K/mm3 (0.9-3.2); Lymphocytes Percent Auto 37.3 % (18.3-44.2); Mean Corpuscular Hemoglobin 25.6 pg (26-34); Mean Corpuscular Volume 82.6 fl (80-100); Mean Platelet Volume 9.2 fl (7.4-10.4); Monocytes Absolute Auto 0.5 K/mm3 (0.1-0.6); Monocytes Percent Auto 9.8 % (2.6-8.5); Neutrophils Absolute Auto 2.4 K/mm3 (1.3-6.7); Neutrophils Percent Auto 49.4 % (45.5-73.1); Platelet Count Result 401 k/mm3 (150-375); Red Blood Count 4.65 M/mm3 (4.2-5.4); Red Cell Distribution Width 15.3 % (11.5-14.5); White Blood Count 4.8 K/mm3 (4.5-10.0)
[2024-04-27 15:38] LABS: BEDSIDEPREGUCG Negative (Negative)
[2024-04-27 15:43] LABS: Add Urine Microscopic? YES; Appearance Urine Cloudy (Clear); Bacteria Urine 3+ /hpf; Bilirubin Urine Negative (Negative); Blood Urine 3+ (Negative); Color Urine Yellow (Yellow); Glucose Urine UA Negative (Negative); Ketones Urine Negative (Negative); Leukocyte Esterase Ur 1+ LEU/UL (Negative); Nitrate Urine Negative (Negative); Non Pathogenic Casts 0-2; Protein Urine Trace mg/dL (Negative); RBC Urine 51-100 /hpf (0-2); Specific Grav Ur 1.025 (1.001-1.035); Squamous Epithelial Cell Urine Few /hpf (Few); Urobilinogen Urine 0.2 mg/dL (<2.0); WBC Urine 21-50 /hpf (0-3); pH Urine 5.5 (5.0-9.0)
[2024-04-27 15:44] LABS: Alanine Aminotransferase 16 U/L (6-35); Albumin Level 4.2 g/dL (3.5-5.1); Alkaline Phosphatase 79 U/L (38-126); Anion Gap 9 mmol/L (4-12); Aspartate Amino Transferase 23 U/L (14-36); Bilirubin,Total 0.7 mg/dL (0.2-1.3); Blood Urea Nitrogen 13 mg/dL (7-17); Calcium 9.4 mg/dL (8.4-10.2); Carbon Dioxide 24 mmol/L (22-30); Chloride 106 mmol/L (98-107); Estimated CRCL calculation 145 ml/min; Estimated Glomerular Filt Rate > 60; Glucose 85 mg/dL (65-110); Lipase 55 U/L (23-300); Sodium 139 mmol/L (137-145)
--- OUTSIDE RECORDS SUMMARY | 2024-04-27 16:31 | XMS_ITS | Patient Health Summary ---
Author Organization [facility] Address [address] [place] [address] Care Team Providers Care Clinical Instructor Name Role Phone Micah Lerma MD Primary Care Provider Note from [facility],non-owned Affiliates and Associated Physician Practices is amultiple site organization consisting of ambulatory clinics and hospital sitesin [place], [place], [place] and [place]. This disclosure is being madepursuant to the Care Everywhere program and may not contain all information available regarding this patient. Last updated 17.[facility] Allergies * Sulfa Drugs(Itching) Medications * Be [...] PM CDT Pulse 91 04/30/2020 10:19 AM BRAKE REPAIR MECHANIC Temperature 36.8 C (98.2 F) 04/13/2020 11:15 AM BRAKE REPAIR MECHANIC Respiratory Rate 16 12/23/2019 1:51 PM CDT Oxygen Saturation 98% 04/13/2020 11:15 AM BRAKE REPAIR MECHANIC Inhaled Oxygen Concentration - - Weight 102.5 kg (226 lb) 07/16/2020 3:21 PM CDT Height 167.6 cm (5' 6 ) 07/16/2020 3:21 PM CDT Body Mass Index 36.48 07/16/2020 3:21 PM CDT Procedures * WET PREP - POINT OF CARE (AMB) SLU(Performed 07/16/2020) Performed for Bacterial vaginosis * OH SONO EXAM, TRANSVAGINAL(Performed 06/03/2020) Performed for Fibroid * OH US PELVIC NONOB REAL-TIME IMG COMPLETE(Performed 06/03/2020) [...] LAB - POINT OF CARE ORDERABLES * OH US PELVIC NONOB REAL-TIME IMG COMPLETE, OH SONO EXAM, TRANSVAGINAL (06/03/2020 2:44 PM CDT) Narrative Mar - 06/03/2020 2:44 PM CDT , 06/03/2020 2:45 PM Documentation in [employer]. Estela Honeycutt MD PROCEDURE/MS NOR SURGICAL ORDERABLES * IMAGING RADIOLOGY XRAY RESULTS ORDER (06/03/2020) Anatomical Region Laterality Modality Other Narrative 06/03/2020 Ordered by an unspecified provider. Scanned Document IMAGING * HPV DETECTION HIGH RISK MICHAELLE (04/30/2020 3:40 PM BRAKE REPAIR MECHANIC) High Risk Human Papilloma Result Not detected Not detected 05/05/2020 4:35 PM BRAKE REPAIR MECHANIC [facility] High Risk Human Papilloma Interp 05/05/2020 4:35 PM BRAKE REPAIR MECHANIC [facility] Comment:High Risk Human Fransisco lloma Virus was Not Detected. Pathology/Cytolo gy MISCELLANEOUS SAMPLES / Unknown 04/30/2020 3:40 PM BRAKE REPAIR MECHANIC 05/04/2020 11:48 AM BRAKE REPAIR MECHANIC Narrative [facility] - 05/05/2020 4:35 PM BRAKE REPAIR MECHANIC Nucleic acid isolated from the specimen was [...] Honeycutt MD LAB - MICROB IOLOGY ORDERABLES [facility] [address] [phone] * PAP IMAGE-GUIDED W HPV (04/30/2020 3:40 PM BRAKE REPAIR MECHANIC) Case Report Gynecologic Cytology Report Case: [id number] Authorizing Provider: Estela Honeycutt, Collected: 04/30/2020 03:40 PM Ordering Location: [facility] Obstetrics Received: 05/04/2020 11:48 AM [facility] Screen: Kp Kamara Specimen: THINPREP - NON IMAGE GUIDED, Cervix/Endocervix 05/06/2020 10:51 AM BRAKE REPAIR MECHANIC [facility] LMP n/a 05/06/2020 10:51 AM BRAKE REPAIR MECHANIC [facility] Menstrual Status None Applicable 06/2020 10:51 AM [facility] Specimen Adequacy Satisfactory for evaluation, endocervical/trans formation zone component present. 05/06/2020 10:51 AM [facility] Categorization Negative for intraepithelial lesion or malignancy. 05/06/2020 10:51 AM [facility] Interpretation PROJECT ENGINEERING MANAGER Negative for intraepithelial lesion or malignancy. 05/06/2020 10:51 AM [facility] Pap Footnote The Pap Smear is a screening test. False positive and false negative results occur. Negative results do not preclude abnormalities, thus clinical correlation is required. This specimen was evaluated by the ThinPrep Imaging System along with an additional manual rescreening by a grab jack worker and/or pathologist. 05/06/2020 10:51 AM [facility] Embedded Images 10:51 AM [facility] Pathology/Cytolo gy MISCELLANEOUS SAMPLES / Unknown 04/30/2020 3:40 PM BRAKE REPAIR MECHANIC 05/04/2020 11:48 AM BRAKE REPAIR MECHANIC Estela Honeycutt MD LAB - PATHOL OGY/CYTOLOGY ORDERABLES [facility] [address] [place] [address], [facility] [phone] * MRI BRAIN WWO CONTRAST (03/08/2020 2:56 PM BRAKE REPAIR MECHANIC) Anatomical Region Laterality Modality Head Magnetic Resonan ce 03/08/2020 2:52 PM BRAKE REPAIR MECHANIC Impressions 03/08/2020 3:09 PM BRAKE REPAIR MECHANIC IMPRESSION: Normal MRI of the brain. Specifically, no evidence of demyelinating plaques. This report was electronically signed by REBECCA COSME on 03/08/2020 3:09 PM . Narrative 03/08/2020 3:09 PM BRAKE REPAIR MECHANIC Contrast enhanced MRI of brain CLINICAL INFORMATION: [...] CREATININE - POCT INTERFACED (03/08/2020 1:58 PM BRAKE REPAIR MECHANIC) Creatinine POCT 0.62 0.30 - 1.30 mg/dL 03/08/2020 2:04 PM BRAKE REPAIR MECHANIC [facility] Comment:Range ok for MRI eGFR >60 >60 mL/min/1.7 3 m2 03/08/2020 2:04 PM BRAKE REPAIR MECHANIC [facility] Blood BLOOD SPECIMEN / Unknown 03/08/2020 1:58 PM BRAKE REPAIR MECHANIC 03/08/2020 2:04 PM BRAKE REPAIR MECHANIC Eloy Hopkins MD LAB - POINT OF CARE ORDERABLES Performing Organization Address City/State/[facility] Co de Phone Number [facility] [address] [place] [address], [facility] [phone] Care Teams Clinical Instructor Relationship Specialty [place] [address] [place] [address] [phone] PCP - General Internal Medicine 05/24/20
--- OUTSIDE RECORDS SUMMARY | 2024-04-27 16:31 | XMS_ITS | Clinical Summary ---
Author Organization [facility] Address [address] [place] [address] Care Team Providers Care Log Getter Name Role Phone Micah Lerma MD Primary Care Provider Source Comments [facility],non-owned Affiliates and Associated Physician Practices is amultiple site organization consisting of ambulatory clinics and hospital sitesin [place], [place], [place] and [place]. This disclosure is being madepursuant to the Care Everywhere program and may not contain all information available regarding this patient. Last updated 17.[facility] Allergies Active Allergy Reactions Criticality Noted Date [...] PM CDT Pulse 91 04/30/2020 10:19 AM FISHING GEAR MECHANIC Temperature 36.8 C (98.2 F) 04/13/2020 11:15 AM FISHING GEAR MECHANIC Respiratory Rate 16 12/23/2019 1:51 PM CDT Oxygen Saturation 98% 04/13/2020 11:15 AM FISHING GEAR MECHANIC Inhaled Oxygen Concentration - - Weight [...] HIGH RISK MICHAELLE Routine 04/30/2020 3:40 PM FISHING GEAR MECHANIC Well woman exam from Last 3 Months or Most Recently Relevant to Health Maintenance Results * HPV DETECTION HIGH RISK MICHAELLE (04/30/2020 3:40 PM FISHING GEAR MECHANIC) High Risk Human Papilloma Result Not detected Not detected 05/05/2020 4:35 PM FISHING GEAR MECHANIC [facility] High Risk Human Papilloma Interp 05/05/2020 4:35 PM FISHING GEAR MECHANIC [facility] Comment:High Risk Human Fransisco lloma Virus was Not Detected. Pathology/Cytolo gy MISCELLANEOUS SAMPLES / Unknown 04/30/2020 3:40 PM FISHING GEAR MECHANIC 05/04/2020 11:48 AM FISHING GEAR MECHANIC Narrative [facility] - 05/05/2020 4:35 PM FISHING GEAR MECHANIC Nucleic acid isolated from the specimen [...] Honeycutt MD LAB - MICROB IOLOGY ORDERABLES [facility] [address] [phone] from Last 3 Months or Most Recently Relevant to Health Maintenance Care Teams Log Getter Relationship Specialty Start Date End Date Micah Lerma MD [address] [place] [address] [phone] PCP - General Internal Medicine 05/24/20
--- OUTSIDE RECORDS SUMMARY | 2024-04-27 16:31 | XMS_ITS | Referral Summary ---
Author Organization [facility] Address [address] [place] [address] Care Team Providers Care Instructor Bridge Name Role Phone Micah Lerma MD Primary Care Provider Source Comments [facility],non-owned Affiliates and Associated Physician Practices is amultiple site organization consisting of ambulatory clinics and hospital sitesin [place], [place], [place] and [place]. This disclosure is being madepursuant to the Care Everywhere program and may not contain all information available regarding this patient. Last updated 17.[facility] Allergies Active Allergy Reactions Criticality Noted Date [...] PM CDT Pulse 91 04/30/2020 10:19 AM LOAN COUNSELOR Temperature 36.8 C (98.2 F) 04/13/2020 11:15 AM LOAN COUNSELOR Respiratory Rate 16 12/23/2019 1:51 PM CDT Oxygen Saturation 98% 04/13/2020 11:15 AM LOAN COUNSELOR Inhaled Oxygen Concentration - - Weight 102.5 kg (226 lb) 07/16/2020 3:21 PM CDT Height 167.6 cm (5' 6 ) 07/16/2020 3:21 PM CDT Body Mass Index 36.48 07/16/2020 3:21 PM CDT Plan of Treatment Not on file Procedures Procedure Name Priority Date/Time Associated Diagnosis Comments HPV DETECTION HIGH RISK MICHAELLE Routine 04/30/2020 3:40 PM LOAN COUNSELOR Well woman exam from Last 3 Months or Most Recently Relevant to Health Maintenance Results * HPV DETECTION HIGH RISK MICHAELLE (04/30/2020 3:40 PM LOAN COUNSELOR) High Risk Human Papilloma Result Not detected Not detected 05/05/2020 4:35 PM LOAN COUNSELOR [facility] High Risk Human Papilloma Interp 05/05/2020 4:35 PM LOAN COUNSELOR [facility] Comment:High Risk Human Fransisco lloma Virus was Not Detected. Pathology/Cytolo gy MISCELLANEOUS SAMPLES / Unknown 04/30/2020 3:40 PM LOAN COUNSELOR 05/04/2020 11:48 AM LOAN COUNSELOR Narrative [facility] - 05/05/2020 4:35 PM LOAN COUNSELOR Nucleic acid isolated from the specimen was [...] - MICROB IOLOGY ORDERABLES Performing Organization Address City/State/[facility] Co de Phone Number [facility] [address] [place] [address], [facility] [phone] from Last 3 Months or Most Recently Relevant to Health Maintenance Care Teams Instructor Bridge Relationship Specialty Start Date End Date Micah Lerma MD [address] [place], [place] [phone] PCP - General Internal Medicine 05/24/20
--- OUTSIDE RECORDS SUMMARY | 2024-04-27 16:31 | XMS_ITS | CONTINUITY OF CARE DOCUMENT ---
Author Name ying he Address Unknown Organization [facility] Address [address] [place] [address] Phone [phone] Care Team Providers Care Lab Technician Name Role Phone Mallika ASHRAF, Praful Unavailable [phone] Praful Tena MD Unavailable [phone] INSURANCE PROVIDERS Payer name Policy type / Coverage type [place] red republican ID [employer]ET[employer] [facility] Other [id number]
--- OUTSIDE RECORDS SUMMARY | 2024-04-27 16:32 | XMS_ITS | Clinical Summary ---
Author Organization [facility] Address [facility] [address] [place] [address] Care Team Providers Care Clinical Secretary Name Role Phone Mani Park MD Primary [...] Td or Tdap) 08/15/2023 08/14/2013 PHQ-2 (Physician [place]) 10/26/2023 10/25/2022 COVID-19 Vaccine ( - 2023-2 5 season) 2023 Influenza Adult (#1) 2023 PHQ-2 (Physician [place]) 03/05/2024 10/25/2022 Meningococcal B Vaccine Aged Out [...] complete this topic Insurance [employer] Care Teams Clinical Secretary Relationship Specialty Start Date End Date Mani Park MD PCP - General FAMILY PRACTICE 08/17/22
--- OUTSIDE RECORDS SUMMARY | 2024-04-27 16:32 | XMS_ITS | Referral Summary ---
Author Organization [facility] Address [address] [place] [address] Care Team Providers Care Reagent Tender Name Role Phone Mani Park MD Primary Care Provider [phone] Encounters Date Type Department Care Team Description 03/03/2024 Telephone [facility] Obstetrical Gynecology [facility] [address] [place] [address] Bill Hollins MD from Last [...] on file Legal Sex Female 4:26 AM DIE HOLDER Gender Identity Not on file Sexual Orientation Not on file Last Filed Vital Signs Vital Sign Reading Time Taken Comments Blood Pressure 130/80 01/09/2024 1:36 PM DIE HOLDER Pulse 90 03/20/2023 9:47 AM DIE HOLDER Temperature 36.4 C (97.5 F) 03/20/2023 9:47 AM DIE HOLDER Respiratory Rate 18 03/20/2023 9:47 AM DIE HOLDER Oxygen Saturation 98% 03/20/2023 9:47 AM DIE HOLDER Inhaled Oxygen Concentration - - Weight 107 kg (236 lb) 01/09/2024 1:36 PM DIE HOLDER Height 167.6 cm (5' 6 ) 01/09/2024 1:36 PM DIE HOLDER Body Mass Index 38.09 01/09/2024 1:36 PM DIE HOLDER Plan of Treatment Not on file Procedures Procedure Name Priority Date/Time Associated Diagnosis Comments HIGH RISK HPV DNA DETECTION WITH GENOTYPING Routine 08/22/2023 10:52 AM CDT Screening for cervical cancer Well woman exam DIAGNOSTIC MAMMOGRAM BILATERAL W EDGARDO Schedule Routine, Read Routine (OP Routine) 03/14/2023 8:40 AM DIE HOLDER Breast pain in female COLONOSCOPY Routine 09/13/2020 from Last 3 Months or Most Recently Relevant to Health Maintenance Results * High Risk HPV DNA Detection with Genotyping (Molecular component) (08/22/2023 10:52 AM CDT) HPV HR [address] [facility] Comment:Testing performed by : [facility], [address] [place]., [address] HPV HR 18 Not Detected Not Detected [facility] Comment:Testing performed by : [facility], [address] [place] [address] HPV HR Non 16/18 Not Detected Not [...] this test have been verified by the [facility] Molecular Infectious Disease laboratory. Correlate with separately reported cytology results, as applicable. Interpretive data last revised 22 Testing performed by: [facility], [address] [place]., [address] Endocervical 08/22/2023 10:5 2 AM CDT 08/22/2023 5:30 PM CDT Narrative [facility] - 08/23/2023 2:48 AM CDT Clinical history and diagnosis->screen Testing type->Screening Last menstrual period (date if known)->08/19/23 Bill Hollins MD LAB BODY FLUIDS AND STO OLS ORDERABLES Final Result [facility] [address] [facility] Department [place] [address] [facility] * Diagnostic Mammogram Bilateral W Edgardo (03/14/2023 8:40 AM DIE HOLDER) Anatomical Region Laterality Modality Breast Bilateral Mammography 03/14/2023 9:58 AM DIE HOLDER Impressions 03/14/2023 10:27 AM DIE HOLDER Oval masses in the middle outer central [...] Xochitl Simmons M.D. Narrative 03/14/2023 10:27 AM DIE HOLDER EXAMINATION: BILATERAL DIGITAL DIAGNOSTIC MAMMOGRAM INCLUDING CAD [...] Most Recently Relevant to Health Maintenance Insurance [facility] AETNA Care Teams Reagent Tender Relationship Specialty Start Date End Date Mani Park MD PCP - General Family Medicine 08/06/23
--- OUTSIDE RECORDS SUMMARY | 2024-04-27 16:32 | XMS_ITS | Clinical Summary ---
Author Organization [facility] Address [address] [place] [address] Care Team Providers Care Ophthalmic Surgical Assistant Name Role Phone Mani Park MD Primary [...] Type Department Care Team Description 03/03/2024 Telephone [facility] Medical Group Obstetrical Gynecology [address] [facility] [address] [place] [address] Bill Hollins MD from Last 3 Months Immunizations Immunization Administration Dates Next Due Influenza, Unspecified 03/20/2023(Deferred: Carrie ent Refused) Tdap 08/14/2013 Surgical History Surgery Date Site/Laterality Comments [id number] DRUG-SCR [id number] DRUG-SCR HYSTEROSCOPY 03/05/2019 - 03/04/2020 US [...] on file Legal Sex Female 4:26 AM DIGITAL MARKETING LEAD Gender Identity Not on file Sexual Orientation Not on file Obstetrics History Para Term AB IAB SAB Ectopic Multiple Livin g Live Births 3 2 2 Date Outcome GA Total Labor Labor/2nd/3rd Weight Sex Type Anes PTL Leanna A1 A5 Name Clin Term Term Comments Last Filed Vital Signs Vital Sign Reading Time Taken Comments Blood Pressure 130/80 01/09/2024 1:36 PM DIGITAL MARKETING LEAD Pulse 90 03/20/2023 9:47 AM DIGITAL MARKETING LEAD Temperature 36.4 C (97.5 F) 03/20/2023 9:47 AM DIGITAL MARKETING LEAD Respiratory Rate 18 03/20/2023 9:47 AM DIGITAL MARKETING LEAD Oxygen Saturation 98% 03/20/2023 9:47 AM DIGITAL MARKETING LEAD Inhaled Oxygen Concentration - - Weight 107 kg (236 lb) 01/09/2024 1:36 PM DIGITAL MARKETING LEAD Height 167.6 cm (5' 6 ) 01/09/2024 1:36 PM DIGITAL MARKETING LEAD Body Mass Index 38.09 01/09/2024 1:36 PM DIGITAL MARKETING LEAD Plan of Treatment Health Maintenance Due Date [...] Read Routine (OP Routine) 03/14/2023 8:40 AM DIGITAL MARKETING LEAD Breast pain in female COLONOSCOPY Routine 09/13/2020 from Last 3 Months or Most Recently Relevant to Health Maintenance Results * High Risk HPV DNA Detection with Genotyping (Molecular component) (08/22/2023 10:52 AM CDT) HPV HR 16 Not Detected Not Detected [facility] Comment:Testing performed by : [facility], [address] [place]., [address] HPV HR 18 Not Detected Not Detected [facility] Comment:Testing performed by : [facility], [address] [place]., [address] HPV HR Non 16/18 Not Detected Not [...] data last revised 22 Testing performed by: [facility], [address] [place]., [address] Endocervical 08/22/2023 10:5 2 AM CDT 08/22/2023 5:30 PM CDT Narrative [facility] - 08/23/2023 2:48 AM CDT Clinical history and diagnosis->screen Testing type->Screening Last menstrual period (date if known)->08/19/23 Bill Hollins MD LAB BODY FLUIDS AND STO OLS ORDERABLES Final Result [facility] [address] [facility] Department [place] [address] [facility] * Diagnostic Mammogram Bilateral W Hiram (03/14/2023 8:40 AM DIGITAL MARKETING LEAD) Anatomical Region Laterality Modality Breast Bilateral Mammography 03/14/2023 9:58 AM DIGITAL MARKETING LEAD Impressions 03/14/2023 10:27 AM DIGITAL MARKETING LEAD Oval masses in the middle outer central [...] Xochitl Simmons M.D. Narrative 03/14/2023 10:27 AM DIGITAL MARKETING LEAD EXAMINATION: BILATERAL DIGITAL DIAGNOSTIC MAMMOGRAM INCLUDING CAD [...] Most Recently Relevant to Health Maintenance [facility] AETNA Care Teams Ophthalmic Surgical Assistant Relationship Specialty Start Date End Date Mani Park MD PCP - General Family Medicine 08/06/23
[2024-04-27 17:30] VITALS: BP 151/99; PULSE 79; RESP 16; O2SAT 99
[2024-04-27] MEDS: CEPHALEXIN 500 MG CAPSULE PO (17:55)
== END 2024-04-27 17:56 | disposition home or self-care (01) ==
PROVIDERS: Physician Assistant; Emergency Provider Emergency Medicine; PCP Family Medicine
DX: N10 Acute pyelonephritis (principal); R93.89 Abnormal findings on diagnostic imaging of other specified body structures; D64.9 Anemia, unspecified
CPT/HCPCS: 36415; 74176; 80053; 81001; 81025; 83690; 85025; 87086; 87186; 99284; A9270

== ENCOUNTER 2024-10-03 16:00 | Emergency (ER) | payer OTHER, SELFPAY ==
[2024-10-03 16:07] VITALS: BP 151/105; PULSE 77; RESP 16; TEMP 36.8; O2SAT 100
[2024-10-03 16:26] LABS: EDUAAPPEAR Clear; EDUABILI Negative (Negative); EDUABLOOD 3+ (Negative); EDUACOLOR1 Yellow; EDUAGLUCOSE Negative (Negative); EDUAKETONE Negative (Negative); EDUALEUKO Negative (Negative); EDUANITRATE Negative (Negative); EDUAPH 5.5; EDUAPROTEIN 2+ (Negative); EDUASPGRAVITY 1.030; EDUAUROBILI 0.2
--- NOTE | 2024-10-03 16:45 | ED_ITS ---
HPI - Female Genitourinary General Chief complaint: Urogenital-Female Stated complaint: UTI Time Seen by Provider: 10/03/24 16:30 Source: patient and RN notes reviewed Mode of arrival: ambulatory Limitations: no limitations History of Present Illness HPI Narrative: 49-year-old female presents Express Care complaining of urinary symptoms for 3 days. Patient reports dysuria, frequency, hesitancy, hematuria, left flank pain. Patient denies any abdominal pain, fevers, body aches, chills, nausea, vomiting, any other symptoms. Patient denies any vaginal irritation, vaginal discharge, or vaginal bleeding. Patient says symptoms were similar back in April earlier this year and she was sent to the ER to rule out a kidney stone and she had a urinary tract infection. Patient was then treated with cephalexin and stated that it was not effective in her primary doctor switched to levofloxacin her symptoms resolved. Patient denies any significant past medical history. Related Data Home Medications ?Medication ?Instructions ?Recorded ?Confirmed ?Last Taken ?Type ferrous sulfate PO 10/03/24 Unknown History Allergies Allergy/AdvReac Type Severity Reaction Status Date / Time diphenhydramine (From Allergy Intermediate Rash Verified 10/03/24 16:05 Benadryl) Sulfa (Sulfonamide Allergy Intermediate Rash Verified 10/03/24 16:05 Antibiotics) Review of Systems Review of Systems: CONSTITUTIONAL: Denies fever, chills, or sweats. EYES: Denies visual changes, redness, or discharge. ENT: Denies rhinorrhea, congestion, sore throat, or otalgia. CARDIOVASCULAR: Denies chest pain, palpitations, or edema. RESPIRATORY: Denies cough or dyspnea. GASTROINTESTINAL: Denies abdominal pain, nausea, vomiting, or diarrhea. GENITOURINARY: Positive for dysuria, hematuria, frequency, hesitancy. Negative for vaginal bleeding, vaginal discharge, vaginal irritation. SKIN: Denies rash or itching. MUSCULOSKELETAL: Denies back pain, joint pain, or myalgia. Positive for left flank pain. NEUROLOGIC: Denies headache, numbness, or weakness. PSYCHIATRIC: Denies anxiety or depression. All other systems reviewed are negative, except as documented in HPI. [facility]LY [facility] Past Medical History Medical History Bronchitis Anemia Menorrhagia with regular cycle Fibroids Migraine Surgical History Surgical History H/O: x2 Family History Family History Other Diabetes mellitus Hypertension Social History Social History Smoking status: Never smoker Substance use: never Gender identity (if verbalized by the patient): Female Comments At the time of my signature, I reviewed and agree with the nursing past medical, surgical, social, and family history. There is no relevant family history pertinent to the patient complaint. Exam Narrative: GENERAL: This is a well-nourished, well-developed adult, in no apparent distress. They are non ill-appearing, nontoxic appearing. Patient is obese. HEAD: normocephalic, atraumatic. EYES: Sclera clear/white. Conjunctiva normal. Vision is grossly intact. Extraocular movements intact EARS: External ears normal, Hearing grossly intact. NOSE: External nose normal THROAT: Mucous membranes moist, NECK: Neck supple, non-tender without lymphadenopathy, masses or thyromegaly. CARDIOVASCULAR: Regular rate and rhythm without murmurs, gallops, or rubs. RESPIRATORY: Clear to auscultation. Breath sounds equal bilaterally. No wheezes, rales, or rhonchi. GASTROINTESTINAL: Abdomen soft, non-tender, nondistended. Bowel sounds are active. No hepato-splenomegaly, or palpable masses. No guarding or rigidity. No rebound tenderness. SKIN: warm, Dry, intact with no suspicious lesions or rash, good texture and tur gor. NEURO: awake, alert, and oriented to person, place and time. There were no obvious focal neurologic abnormalities. EXTREMITIES: No joint tenderness, effusion, or edema noted. BACK: Nontender without deformity. No CVA tenderness. Course Course Emergency Course: Portions of this record may have been created with voice recognition software Level of Care: Express Care Visit Vital Signs Vital signs: Vital Signs Temperature 98.2 F 10/03/24 16:07 Pulse Rate 77 10/03/24 16:07 Respiratory Rate 16 10/03/24 16:07 Blood Pressure 151/105 H 10/03/24 16:07 Pulse Oximetry 100 10/03/24 16:07 Oxygen Delivery Room Air 10/03/24 16:07 Temperature 98.2 F 10/03/24 16:07 Pulse Rate 77 10/03/24 16:07 Respiratory Rate 16 10/03/24 16:07 Blood Pressure 151/105 H 10/03/24 16:07 Pulse Oximetry 100 10/03/24 16:07 Oxygen Delivery Room Air 10/03/24 16:07 Reviewed MDM - Female Genitourinary MDM Narrative Medical decision making narrative: Urine dipstick shows blood and protein otherwise unremarkable. Urine culture pending. Symptoms consistent with urinary tract infection, last time patient left flank pain they ruled out a kidney stone, offered patient KUB to assess for any kidney stones and she declined, she would like to be treated for UTI. Will treat based off previous culture results, she said cephalexin was ineffective and she was given levofloxacin. I will prescribe her ciprofloxacin. Discussed physical exam findings. Advised supportive measures and signs/symptoms to go to the ER. Pt is appropriate for outpt treatment and f/u. Differential Diagnosis Differential diagnosis: Likely urinary tract infection, cystitis and other (Pyelonephritis) Lab Data Attestation: I reviewed the patient's lab results. Labs: Lab Results 10/03/24 Range/Units 16:24 POC Urine Color Yellow POC Urine Clarity Clear POC Urine pH 5.5 POC Ur Specif Wilson 1.030 POC Urine Protein 2+ (Negative) POC Ur Glucose (UA) Negative (Negative) POC Urine Ketones Negative (Negative) POC Urine Blood 3+ (Negative) POC Urine Nitrite Negative (Negative) POC Urine Bilirubin Negative (Negative) POC Urine Urobilinogen 0.2 POC U Leukocyte Esteras Negative (Negative) Critical Care Time Critical Care Time Critical Care Time: No Discharge Plan Discharge Clinical Impression: Urinary tract infection Patient Disposition: Home Condition: Stable Instructions: Antibiotic Form, Urinary Tract Infection in Women (ED) Additional Instructions: Take the antibiotic as prescribed The urine will be sent of for a culture to identify what type of bacteria is causing your infection. If the culture shows that the antibiotic will not get rid of your infection, you will be notified and a new antibiotic will be called in for you. Increase water intake you will need to follow up with your PCP 3-5 days. Go to the ER for any worsening symptoms, abdominal pain, fevers, nausea, vomiting, or any other concerns Patient Language: Slovak Prescriptions: New ciprofloxacin HCl 250 mg tablet 250 mg PO Q12H 3 Days Qty: 6 0RF No Action ferrous sulfate PO Follow-up/Referrals: Xavier,Mani Gant MD [Primary Care Provider] - Time of Disposition: 16:45
== END 2024-10-03 17:00 | disposition home or self-care (01) ==
PROVIDERS: PCP Family Medicine
DX: N39.0 Urinary tract infection, site not specified (principal); D64.9 Anemia, unspecified
CPT/HCPCS: 81003; 87086; 99213; G0463

== ENCOUNTER 2024-12-23 09:22 | Emergency (ER) | payer SELFPAY ==
[2024-12-23 09:29] VITALS: BP 176/96; PULSE 101; RESP 16; TEMP 36.7; O2SAT 96
--- NOTE | 2024-12-23 09:37 | ED.EAR ---
HPI - Ear Problem General Chief complaint: Ear Stated complaint: Ears Irritation Time Seen by Provider: 12/23/24 09:39 Source: patient, RN notes reviewed and old records reviewed Mode of arrival: ambulatory Limitations: no limitations History of Present Illness HPI Narrative: 49 year old female who presents to [facility] care with complaints of pain to her ears for the past 2 days especially pain to the left ear with decreased hearing. Patient reports that she has been sneezing a little more but denies any fevers, chill or sweat or any cough or acute sinus congestion and drainage. Patiebt reports that she has not been taking any OTC medication for her symptoms. MD Complaint: ear pain and decreased hearing Location: bilateral Duration: constant Severity: moderate Discharge from ear: Reports no Associated symptoms ear: decreased hearing and other (ear pain) Treatment prior to arrival: none Related Data Home Medications ?Medication ?Instructions ?Recorded ?Confirmed ?Last Taken ?Type ferrous sulfate PO 10/03/24 Unknown History amitriptyline 12/23/24 Unknown History omeprazole 12/23/24 Unknown History [id number] 12/23/24 Unknown History Allergies Allergy/AdvReac Type Severity Reaction Status Date / Time diphenhydramine (From Allergy Intermediate Rash Verified 12/23/24 09:24 Benadryl) Sulfa (Sulfonamide Allergy Intermediate Rash Verified 12/23/24 09:24 Antibiotics) Review of Systems Review of Systems: CONSTITUTIONAL: Denies malaise, chills, sweats, or fever. EYES: Denies visual changes, redness, or discharge. ENT: Reports no rhinorrhea, congestion,no sinus pain, bilateral otalgia and no sore throat. CARDIOVASCULAR: Denies chest pain, palpitations, or edema. RESPIRATORY: Reports no cough.? Denies dyspnea. GASTROINTESTINAL: Denies abdominal pain, nausea, vomiting, diarrhea SKIN: Denies rash or itching. MUSCULOSKELETAL: Denies myalgia. NEUROLOGIC: Denies headache. All systems reviewed & are unremarkable except as noted in HPI and below PMFSH Past Medical History Medical History Bronchitis Anemia Menorrhagia with regular cycle Fibroids Migraine Surgical History Surgical History History of hysteroscopy with dilatation and Curettage H/O: x2 Family History Family History Other Diabetes mellitus Hypertension Social History Social History Smoking status: Never smoker Substance use: never Gender identity (if verbalized by the patient): Female Comments At time of signature, agree with nursing past medical, surgical, social and family history. There is no relevant family history pertinent to the presenting complaint Exam Narrative: GENERAL: Well-appearing, well-nourished, and in no acute distress. HEAD: Normocephalic EYES: PERRLA, conjunctivae clear ENT: Nares clear, turbinates edematous and erythematous, clear discharge. Mucous membranes moist.Left TM red with some bulging, Right TM pearly arriaga with dull light reflex bilaterally; no tragal tenderness. Oropharynx erythematous without lesions. Tonsils not enlarged and without exudate, no drooling, no hoarseness, no trismus, uvula midline. NECK: Supple. No lymphadenopathy CHEST: Clear to auscultation, breath sounds equal. No wheezing, rhonchi, rales, or stridor. No respiratory distress, speaks in full sentences.no cough or any shortness of breath. HEART: Regular rate and rhythm. No murmur heard. SKIN: Warm, dry, no rash. NEURO: Alert and oriented x3. PSYCH: Normal mood and affect Course Course Emergency Course: Patient is aware of diagnosis, understands and agrees to treatment plan.? Anticipatory guidance given.? Patient agrees to follow-up as directed and is aware of reasons to seek care at the emergency department. Portions of this record may have been created with voice recognition software Level of Care: Express Care Visit Vital Signs Vital signs: Vital Signs Temperature 36.7 C 12/23/24 09:29 Pulse Rate 101 H 12/23/24 09:29 Respiratory Rate 16 12/23/24 09:29 Blood Pressure 176/96 H 12/23/24 09:29 Pulse Oximetry 96 12/23/24 09:29 Oxygen Delivery Room Air 12/23/24 09:29 Temperature 36.7 C 12/23/24 09:29 Pulse Rate 101 H 12/23/24 09:29 Respiratory Rate 16 12/23/24 09:29 Blood Pressure 176/96 H 12/23/24 09:29 Pulse Oximetry 96 12/23/24 09:29 Oxygen Delivery Room Air 12/23/24 09:29 Reviewed Medical Decision Making Differential Diagnosis Differential Diagnosis: URI,otitis media left ear, otalgia,viral infection Medical Records Medical records reviewed: Yes I reviewed the external patient's medical records. Vital Signs Vital Signs: Vital Signs Temperature 36.7 C 12/23/24 09:29 Pulse Rate 101 H 12/23/24 09:29 Respiratory Rate 16 12/23/24 09:29 Blood Pressure 176/96 H 12/23/24 09:29 Pulse Oximetry 96 12/23/24 09:29 Oxygen Delivery Room Air 12/23/24 09:29 Temperature 36.7 C 12/23/24 09:29 Pulse Rate 101 H 12/23/24 09:29 Respiratory Rate 16 12/23/24 09:29 Blood Pressure 176/96 H 12/23/24 09:29 Pulse Oximetry 96 12/23/24 09:29 Oxygen Delivery Room Air 12/23/24 09:29 reviewed Critical Care Time Critical Care Time Critical Care Time: No Discharge Plan Discharge Clinical Impression: Left otitis media Qualifiers: Otitis media type: serous Chronicity: acute Recurrence: not specified as recurrent Qualified Code(s): H65.02 - Acute serous otitis media, left ear Patient Disposition: Home Condition: Stable Instructions: Antibiotic Form, Ear Infection (ED) Additional Instructions: Increase fluids especially juices and water Fnbq-iyt-fvrtoce cough and cold medicine of your choice for your symptoms Tylenol or ibuprofen per package instructions for any fever pain Recommend Coricidin brand decongestant due to elevation of blood pressure Zyrtec Claritin or Melody daily heat to the face 20-30 minutes 4-6 times a day for pain Salt water gargles, throat lozenges or throat sprays as desired Antibiotic as directed--finish the medication If your symptoms persist, change or worsen significantly before you can contact your personal physician then please, without delay, go to the emergency department for further evaluation. Follow-up with PCP in 7-10 days or sooner if needed Follow up with PCP soon in regards to your blood pressure which is elevated above threshold for referral. Blood pressure above 120/80 may indicate pre-hypertension. 176/96 with recheck 171/96 Patient Language: Montenegrin Prescriptions: New amoxicillin 875 mg tablet 875 mg PO Q12H Qty: 20 0RF No Action ferrous sulfate PO [id number] omeprazole amitriptyline Follow-up/Referrals: Xavier,Mani Gant MD [Primary Care Provider] Time of Disposition: 09:54 Quality [place] Coma Scale Eyes: Open Verbal: Oriented and Alert Motor: Follows Commands [place] Coma Total Score: 15
== END 2024-12-23 10:00 | disposition home or self-care (01) ==
PROVIDERS: Emergency Provider Registered Nurse; PCP Family Medicine
DX: H65.02 Acute serous otitis media, left ear (principal); Z79.899 Other long term (current) drug therapy
CPT/HCPCS: 99213; G0463